=== PATIENT | female | born 1945 | race Caucasian/White ===

== ENCOUNTER → 2020-10-01 15:53 | Outpatient (CLI) | payer MEDICARE, SELFPAY ==
[2020-10-01 18:21] LABS: Alanine Aminotransferase 19 IU/L (<35); Albumin 4.3 g/dL (3.5-5.0); Albumin Globulin Ratio 1.4 (1.0-2.8); Alkaline Phosphatase 134 U/L (38-126); Aspartate Aminotransferase 29 IU/L (14-36); BUN Creatinine Ratio 17.6 (6-22); Bilirubin Total 0.7 mg/dL (0.2-1.3); Blood Urea Nitrogen 12 mg/dL (7-17); Calcium 9.6 mg/dL (8.4-10.2); Carbon Dioxide 31 mmol/L (22-32); Chloride 104 mmol/L (98-107); Cholesterol 245 mg/dL (140-199); Estimated Glomerular Filt Rate > 60.0 mL/min (>60); Globulin 3.1 g/dL (1.7-4.1); HDL Cholesterol 80 mg/dL (40-60); HEMOLYSIS < 15 (0-50); LDL Cholesterol Calculated 138 mg/dL (<100); Potassium 3.8 mmol/L (3.4-5.1); Sodium 139 mmol/L (137-145); Total Protein 7.4 g/dL (6.3-8.2); Triglycerides 137 mg/dL (35-150)
[2020-10-01 18:29] LABS: Glucose 85 mg/dL (80-110)
[2020-10-01 18:36] LABS: Free T3, Triiodothyronine Free 3.73 pg/mL (2.77-5.27); Free T4, Direct Thyroxine 1.26 ng/dL (0.78-2.19)
[2020-10-01 18:50] LABS: Thyroid Stimulating Hormone 1.42 uIU/mL (0.47-4.68)
== END ==
PROVIDERS: PCP Nurse Practitioner; Referring Provider Nurse Practitioner; Visit Provider Nurse Practitioner
DX: E78.5 Hyperlipidemia, unspecified (principal); Z79.899 Other long term (current) drug therapy; R00.2 Palpitations; R07.9 Chest pain, unspecified
CPT/HCPCS: 36415; 80053; 80061; 83735; 84439; 84443; 84481

== ENCOUNTER → 2020-10-22 15:03 | Outpatient (CLI) | payer MEDICARE, SELFPAY ==
--- NOTE | 2020-10-22 15:04 | DI.MG.S_ITS ---
BILATERAL DIGITAL SCREENING MAMMOGRAM 3D/2D WITH CAD: 10/22/2020 CLINICAL: Routine screening. Family history of breast cancer. Comparison is made to exams dated: 10/18/2019 mammogram, 09/29/2019 mammogram, 09/27/2018 mammogram, and 09/14/2017 mammogram - outside location. The tissue of both breasts is predominantly fatty. Current study was also evaluated with a Computer Aided Detection (CAD) system. No significant masses, calcifications, or other findings are seen in either breast. There has been no significant interval change. IMPRESSION: NEGATIVE There is no mammographic evidence of malignancy. A 1 year screening mammogram is recommended. This exam was interpreted at Station ID: [id number]. NOTE: For mammograms, a report in lay terms will be sent to the patient. Approximately 15% of breast malignancies will not be visualized mammographically. In the management of a palpable breast mass, a negative mammogram must not discourage biopsy of a clinically suspicious lesion. Electronically Signed By: Donovan Hahn acr/penrad:10/22/2020 16:50:57 letter sent: Normal Exam ACR BI-RADS Category 1: Negative 3341F
== END ==
PROVIDERS: PCP Nurse Practitioner; Referring Provider Nurse Practitioner; Visit Provider Nurse Practitioner
DX: Z12.31 Encounter for screening mammogram for malignant neoplasm of breast (principal); Z80.3 Family history of malignant neoplasm of breast; M81.0 Age-related osteoporosis without current pathological fracture; Z78.0 Asymptomatic menopausal state
CPT/HCPCS: 77063; 77067; 77080

== ENCOUNTER → 2020-11-27 10:23 | Outpatient (CLI) | payer MEDICARE, SELFPAY ==
[2020-11-27 11:07] LABS: COVID19 -Nasal RAPID Negative (Negative)
== END ==
PROVIDERS: PCP Nurse Practitioner; Visit Provider Specialist
DX: Z20.822 Contact with and (suspected) exposure to COVID-19 (principal)
CPT/HCPCS: 87635; C9803

== ENCOUNTER 2020-11-28 12:38 | Day surgery (SDC) | payer MEDICARE, SELFPAY ==
[2020-11-28] VITALS (7 sets, daily range): BP systolic 100–117; BP diastolic 50–66; PULSE 82–106; RESP 12–16; TEMP 36.5–36.9; O2SAT 97–99; BMI 27.1
--- NOTE | 2020-11-28 | PATH_ITS ---
[facility] Accession Number: [id number] . 01 Material submitted: . body - POLYP AT 100CM . 02 Diagnosis: Colon, Polyp at 100 cm, Biopsy: Inflammatory polyp. Negative for dysplasia and malignancy. MRV 12/02/2020 1440 Local . 02 Electronically signed: . Ines Paula MD, Pathologist NPI- [id number] . 01 Gross description: . POLYP AT 100CM: Received in formalin is 1 fragment(s) of duarte, soft tissue measuring 0.3 x 0.3 x 0.3 cm submitted entirely in 1 cassette(s) /QBJ 11/29/2020 0707 Local . 02 Pathologist provided ICD-10: K63.5 . 02 CPT . 622475 Performed at: 01 [facility] [address] [id number] MD Jef Chua MD Phone: [phone] Performed at: 02 [facility] [address] [place], [place] [id number] MD Ines Paula MD Phone: [phone]
[2020-11-28] MEDS: LACTATED RINGERS 1,000 ML 200 ML IV (13:18)
--- NOTE | 2020-11-28 14:02 | P.HP_ITS ---
History of Present Illness History of Present Illness Date Patient Seen: 11/28/20 Time Patient Seen: 14:02 Chief complaint: SDC Narrative: The patient is a woman here for a colonoscopy. She thinks her last exam was about 2012. She has had polyps in the past. No family history of colon cancer. Patient History Medical History Aneurysm, splenic artery (~1996) Arthritis Bruises easily Carpal tunnel syndrome (~2003) Chicken pox (~1955) Colon polyps (~1999) Elevated blood pressure reading in office with white coat syndrome, without diag nosis of hypertension Fractures (~1990) Headache (~1962) Hyperlipidemia LDL goal <100 Hyperlipidemia, mixed Measles (~1956) Migraines (~1962) Mumps (~1954) Neuropathy Peripheral neuropathy (~2011) Vertigo (~2004) Wears glasses Family & Social History Social History: household members spouse Tobacco & Substance use: Smoking Status Never smoker alcohol intake never Substance Use Type does not use Meds Home Medications and Allergies Home Medications Medication Instructions Recorded Confirmed Type amitriptyline 10 mg tablet 5 mg PO BEDTIME tab 10/01/20 11/28/20 History cholecalciferol (vitamin D3) 50 50 mcg PO DAILY 10/01/20 11/28/20 History mcg (2,000 unit) capsule gabapentin 100 mg capsule 100 mg PO TID 10/01/20 11/28/20 History ibuprofen 400 mg tablet See Rx Instructions PO QAM tab 10/01/20 11/28/20 History omeprazole 20 mg capsule,delayed 20 mg PO DAILY #90 cap 10/01/20 11/28/20 Rx release simvastatin 10 mg tablet 10 mg PO BEDTIME #90 tab 10/01/20 11/28/20 Rx Allergies Allergy/AdvReac Type Severity Reaction Status Date / Time amoxicillin Allergy Mild rash Verified 11/28/20 13:09 azithromycin Allergy Mild rash Verified 11/28/20 13:09 fluticasone [From Flonase] Allergy Mild coughing Verified 11/28/20 13:09 CONTRAST MEDIA, IODINE Allergy Mild red streak Uncoded 10/15/20 14:14 RELATED on arm From ZITHROMAX Allergy Unknown RASH Uncoded 10/15/20 14:14 SULFA Allergy Unknown RASH Uncoded 10/15/20 14:14 Review of Systems Review of Systems ROS: Yes All systems reviewed with the patient and are negative except as otherwise documented Exam Vital Signs (past 8 hours): - 11/28/20 13:18 Temperature 98.4 F Pulse Rate 106 H Respiratory Rate 14 Blood Pressure 117/66 Pulse Oximetry 97 Oxygen Delivery Method Room Air Narrative Exam Narrative: Pleasant cooperative patient no apparent distress. Lungs are clear to auscultation. No rales or rhonchi. Heart regular rate and rhythm no murmur gallop. Abdomen is soft nontender without mass. No obvious hernias. Patient is alert and oriented x3. Assessment & Plan Assessment & Plan narrative: The patient for a screening colonoscopy. I have discussed the procedure with them. Risks of bleeding, perforation which would necessitate major operation, failure to find remove all lesions, the potential tattoo were all discussed. All questions were answered. They wished to proceed.
--- NOTE | 2020-11-28 14:04 | PM.PREOP ---
Pre-operative Note COVID-19 COVID-19 status: Negative Result date/Date tested (Pos, Neg/Pending): 11/27/20 Interval Note History & Physical reviewed/Exam performed by Physician: Yes Changes to H&P: No ASA Class (for procedural sedation): I
[2020-11-28] MEDS: MIDAZOLAM 5 MG/5 ML VIAL IV (14:34)
[2020-11-28] MEDS: fentaNYL 250 MCG/5 ML INJ IV (14:34)
--- NOTE | 2020-11-28 14:55 | PM.OP.ENDO ---
Operative Date/Time/Diagnoses Date of procedure: 11/28/20 Time of procedure: 14:30 Pre-op diagnosis: Screening exam. Personal history of polyps. Last exam was 5/6 years ago. Post-op diagnosis: same (Multiple diverticuli. One small polyp at about 100 cm from the anal verge.) Procedure & Clinicians Study performed: Colonoscopy with cold biopsy Same procedure as scheduled: Yes Indications: Screening Surgeon: Isrrael Moffett Procedure Notes SCOAP/Timeout: Performed Procedure in detail: The patient was placed in the left lateral decubitus position and underwent IV sedation directed by the surgeon consisting of fentanyl and Versed. Digital exam was remarkable for an increased sphincter tone.. The scope was inserted and advanced through the rectum into the sigmoid, descending, transverse, and ascending colon. Diverticula were noted throughout the colon. Stiffener was inserted and pressure applied in order to reach the cecum.. The cecum was reached identified by the ileocecal valve and the appendiceal opening. The ileocecal valve was successfully cannulated. The terminal ileum was normal in appearance. The scope was gradually brought out. One tiny Polyp was found at 100 cm failed verge and was removed. The scope ultimately was retroflexed in the rectum. The appearance was normal. The scope was removed and the patient tolerated the procedure well. Scope withdrawal time: 8 minutes(9 total) Sedation minutes: 30 Findings: diverticulosis and polyp (One polyp) Specimen(s): other (Polyp) Post-procedure Recommendations: Colonscopy in 5 years Follow up: as needed Disposition: PACU
== END 2020-11-28 15:24 | disposition home or self-care (01) ==
PROVIDERS: PCP Nurse Practitioner; Referring Provider Specialist; Visit Provider Specialist
PROC: 0DJD8ZZ Inspection of Lower Intestinal Tract, Via Natural or Artificial Opening Endoscopic (ICD-10-PCS; CPT 45378; principal; 2020-11-28 13:45)
DX: Z12.11 Encounter for screening for malignant neoplasm of colon (principal); Z86.010 Personal history of colon polyps; K57.30 Diverticulosis of large intestine without perforation or abscess without bleeding; K63.5 Polyp of colon
CPT/HCPCS: 45380; 99152; 99153; J2250; J3010

== ENCOUNTER → 2020-12-04 15:40 | Outpatient (CLI) | payer MEDICARE, SELFPAY ==
--- NOTE | 2020-12-04 15:43 | DI.RAD.S_ITS ---
PROCEDURE: XR FOOT RT MIN 3V INDICATIONS: right lateral foot pain 5th prox Metatarsal r/o stress fract TECHNIQUE: 3 views of the foot were acquired. COMPARISON: None. FINDINGS: Bones: Severe hallux valgus deformity is seen postsurgical changes are noted at distal 1st metatarsal shaft and 1st proximal phalangeal base. No gross hardware loosening or failure is seen. Osteoarthritic changes are noted in midfoot and forefoot joints more prominent at 1st MTP joint. No acute fracture or dislocation. No suspicious bony lesions. Soft tissues: No tibiotalar joint effusion. Achilles tendon appears normal. IMPRESSION: Postsurgical changes in right great toe. Severe hallux valgus. Midfoot and forefoot joint osteoarthritis. No gross hardware complication. No acute fracture or dislocation. Dictated by: Brendon Moran M.D. on 12/04/2020 at 15:32 Approved by: Brendon Moran M.D. on 12/04/2020 at 15:34
== END ==
PROVIDERS: PCP Nurse Practitioner; Referring Provider Student in an Organized Health Care Education/Training Program; Visit Provider Student in an Organized Health Care Education/Training Program
DX: M79.671 Pain in right foot (principal); L89.90 Pressure ulcer of unspecified site, unspecified stage; M19.071 Primary osteoarthritis, right ankle and foot; M20.11 Hallux valgus (acquired), right foot
CPT/HCPCS: 73630

== ENCOUNTER → 2021-02-14 10:18 | Outpatient (CLI) | payer MEDICARE, SELFPAY ==
[2021-02-14 12:17] LABS: Alanine Aminotransferase 18 IU/L (<35); Albumin Globulin Ratio 1.5 (1.0-2.8); Alkaline Phosphatase 99 U/L (38-126); Aspartate Aminotransferase 25 IU/L (14-36); Bilirubin Total 0.8 mg/dL (0.2-1.3); Bilirubin Unconjugated 0.8 mg/dL (0.0-1.1); Cholesterol 160 mg/dL (140-199); Globulin 2.7 g/dL (1.7-4.1); HDL Cholesterol 69 mg/dL (40-60); HEMOLYSIS < 15 (0-50); LDL Cholesterol Calculated 73 mg/dL (<100); Total Protein 6.7 g/dL (6.3-8.2); Triglycerides 88 mg/dL (35-150)
== END ==
PROVIDERS: PCP Nurse Practitioner; Referring Provider Nurse Practitioner; Visit Provider Nurse Practitioner
DX: R79.89 Other specified abnormal findings of blood chemistry (principal); I10 Essential (primary) hypertension; E78.2 Mixed hyperlipidemia
CPT/HCPCS: 36415; 80061; 80076

== ENCOUNTER → 2021-02-21 10:49 | Outpatient (CLI) | payer MEDICARE, SELFPAY ==
--- NOTE | 2021-02-21 10:50 | DI.MG.S_ITS ---
UNILATERAL LEFT DIGITAL DIAGNOSTIC MAMMOGRAM 3D/2D: 02/21/2021 CLINICAL: Left nipple pain. Comparison is made to exams dated: 02/21/2021 ultrasound, 10/22/2020 mammogram - , and 10/18/2019 mammogram - outside location. The tissue of left breast is heterogeneously dense. This may lower the sensitivity of mammography. No significant masses, calcifications, or other findings are seen in the breast. IMPRESSION: INCOMPLETE: NEEDS ADDITIONAL IMAGING EVALUATION There is no abnormality seen in the left breast to correspond with the area of clinical concern, nipple abnormality, and pain. An ultrasound is recommended for further evaluation and is scheduled to immediately follow this examination. This exam was interpreted at Station ID: [id number]. NOTE: For mammograms, a report in lay terms will be sent to the patient. Approximately 15% of breast malignancies will not be visualized mammographically. In the management of a palpable breast mass, a negative mammogram must not discourage biopsy of a clinically suspicious lesion. Electronically Signed By: Armando Major M.D. aty/:02/21/2021 12:15:30 ACR BI-RADS Category 0: Incomplete [id number]
--- NOTE | 2021-02-21 10:50 | DI.US.S_ITS ---
ULTRASOUND OF LEFT BREAST: 02/21/2021 CLINICAL: Focal left breast pain. Comparison is made to exams dated: 10/22/2020 mammogram - [facility], 10/18/2019 mammogram, 09/29/2019 mammogram, 09/27/2018 mammogram, and 09/14/2017 mammogram - outside location. Color flow and real-time ultrasound of the left breast were performed. Zapien scale images of the real-time examination were reviewed. No significant abnormalities were seen sonographically in the left breast. IMPRESSION: NEGATIVE There is no sonographic evidence of malignancy. There is no abnormality seen in the left breast to correspond with the area of clinical concern, nipple abnormality, and pain, however, recommend clinical follow up for persistent or worsening symptoms, or development of any clinically suspicious findings. Return to annual mammogram screening schedule is recommended. Future imaging is recommended as follows: 10/23/2021 screening mammogram. Findings and recommendations were conveyed to the patient during today's evaluation. This exam was interpreted at Station ID: [id number]. Electronically Signed By: Armando Major M.D. at/:02/21/2021 12:16:41 letter sent: Clinical Evaluation Ultrasound BI-RADS: 1 Negative
--- NOTE | 2021-02-21 10:50 | DI.US.S_ITS ---
PROCEDURE: US EXTREMITY NONVASC UPPER LT INDICATIONS: MASS LEFT WRIST TECHNIQUE: Real-time scanning was performed of the left forearm , with image documentation. COMPARISON: None. FINDINGS: Sonographic images within the palpable region demonstrate a relatively iso/increased echogenic focus measuring 2.6 x 0.9 x 1.0 cm. It is within the subcutaneous tissues. There are scattered areas of more central heterogeneous echogenicity. IMPRESSION: Echogenic focus within the subcutaneous tissues suggestive of lipoma. However, scattered areas of more central heterogeneous echogenicity are noted, which are not characteristic for lipoma. While this could represent a heterogeneous lipoma, other etiologies cannot be definitively excluded. Three-month ultrasound follow-up or MRI wrist is recommended for further evaluation. Dictated by: Hayley Conte M.D. on 02/21/2021 at 14:15 Approved by: Hayley Conte M.D. on 02/21/2021 at 14:17
== END ==
PROVIDERS: PCP Nurse Practitioner; Referring Provider Nurse Practitioner; Visit Provider Nurse Practitioner
DX: N64.4 Mastodynia (principal); R22.32 Localized swelling, mass and lump, left upper limb; R92.2 Inconclusive mammogram
CPT/HCPCS: 76642; 76882; 77065; G0279

== ENCOUNTER → 2021-03-03 15:34 | Outpatient (CLI) | payer MEDICARE, SELFPAY ==
--- NOTE | 2021-03-03 15:36 | DI.MRI.S_ITS ---
PROCEDURE: MR WRIST LT WO/W CON INDICATIONS: Abnormal US of left forearm, lump on left forearm TECHNIQUE: Noncontrast coronal proton density fast spin echo and T2 fast spin echo with fat saturation; coronal 3-D gradient echo, axial T1 spin echo and T2 fast spin echo with fat saturation, axial T1 spin echo with fat saturation, sagittal T1 spin echo through the wrist. Post-contrast axial, coronal, and sagittal T1 spin echo with fat saturation through the wrist. COMPARISON: [facility], US, US EXTREMITY NONVAS UPPER LT, 02/21/2021, 10:15. FINDINGS: Image quality: Excellent. Bones and cartilage: No suspicious osseous enhancement. Osteoarthritic changes throughout wrist joints are seen. No bone marrow contusions or fractures. No evidence for avascular necrosis. Overlying cartilage surfaces appear normal. Carpal ligaments: There is suggestion of ruptured scapholunate ligament with slight widening of scapholunate interval. The lunotriquetral ligament appears intact. In the absence of intra-articular contrast, the extrinsic carpal ligaments are not well identified. On sagittal images, the pisohamate ligament appears intact. Triangular fibrocartilage complex: Subtle signal abnormality involving ulnar aspect of triangular fibrocartilage is seen concerning for TFCC tear in this area. The adjacent meniscal homolog appears normal in the absence of intra-articular contrast. The extensor carpi ulnaris tendon is normal in location and morphology. Tendons and soft tissues: There is fairly homogeneous T1 and T2 hyperintense structure draped around radial and volar aspect of distal radial shaft with mass effect on the adjacent flexor muscles . No contrast enhancement is noted in this structure. Complete signal suppression is noted within this structure on fat suppressed sequences. This structure measures up to 1.3 x 1 x 3 cm in size. The carpal tunnel structures appear normal, including the median nerve. The ulnar nerve appears normal within Guyon's canal. All six extensor tendon compartments demonstrate normal morphology, without pathologic tendon sheath fluid. No soft tissue ganglion cysts. IMPRESSION: 1. Finding is most consistent with a 1.3 x 1 x 3 cm lipoma adjacent to radial and volar aspect of distal radial shaft at patient's reported area of palpable lump. No enhancing soft tissue mass is seen. 2. Osteoarthritic changes throughout wrist joints. No abnormal intraosseous enhancement. No fracture or dislocation. 3. Suggestion of ruptured scapholunate ligament as above. 4. Suggestion of TFCC tear near its ulnar insertion. 5. Extensor and flexor tendons are intact. Dictated by: Brendon Moran M.D. on 03/03/2021 at 17:00 Approved by: Brendon Moran M.D. on 03/03/2021 at 17:11
== END ==
PROVIDERS: PCP Nurse Practitioner; Referring Provider Nurse Practitioner; Visit Provider Nurse Practitioner
DX: R22.32 Localized swelling, mass and lump, left upper limb (principal)
CPT/HCPCS: 73223; A9579

== ENCOUNTER → 2021-05-12 15:15 | Outpatient (CLI) | payer MEDICARE, SELFPAY ==
--- NOTE | 2021-05-12 15:16 | DI.US.S_ITS ---
PROCEDURE: US EXTREMITY NONVASC UPPER LT INDICATIONS: FOLLOW UP SUSPECTED LIPOMA TECHNIQUE: Real-time scanning was performed of the left forearm, with image documentation. COMPARISON: [facility], US, US EXTREMITY NONVASC UPPER LT, 02/21/2021, 10:15. FINDINGS: Compared to previous study, again shows a slightly heterogeneously isoechoic structure within anterolateral forearm subcutaneous soft tissue and measures 2.7 x 0.9 x 1.3 cm in size and show no internal vascularity. No new soft tissue mass or fluid collection is seen. This structure previously measures 2.6 x 0.9 x 1 cm in size. IMPRESSION: Essentially unchanged subcutaneous soft tissue structure in left anterolateral forearm most likely represent benign lipoma. Dictated by: Brendon Moran M.D. on 05/12/2021 at 16:05 Approved by: Brendon Moran M.D. on 05/12/2021 at 16:07
== END ==
PROVIDERS: PCP Nurse Practitioner; Referring Provider Nurse Practitioner; Visit Provider Nurse Practitioner
DX: R22.32 Localized swelling, mass and lump, left upper limb (principal)
CPT/HCPCS: 76882

== ENCOUNTER → 2021-07-28 12:38 | Outpatient (CLI) | payer MEDICARE, SELFPAY ==
[2021-07-28 18:10] LABS: Hep C Virus Ab w/Reflex Quant NEGATIVE s/c (NEGATIVE)
== END ==
PROVIDERS: PCP Nurse Practitioner; Referring Provider Nurse Practitioner; Visit Provider Nurse Practitioner
DX: Z11.59 Encounter for screening for other viral diseases (principal); Z91.89 Other specified personal risk factors, not elsewhere classified
CPT/HCPCS: 36415; 86803

== ENCOUNTER → 2021-10-29 08:13 | Outpatient (CLI) | payer MEDICARE, SELFPAY ==
--- NOTE | 2021-10-29 08:16 | DI.RAD.S_ITS ---
PROCEDURE: XR SHOULDER RT MIN 2V INDICATIONS: R upper humerus pain, fall TECHNIQUE: 3 views of the shoulder were acquired. COMPARISON: None. FINDINGS: Bones: There is overlap of the cortex along the inferior margin of the surgical neck of the humerus on single view. It is unclear whether this represents a small minimally displaced fracture or simply artifact of overlapping bone. No other fracture or dislocation. Soft tissues: No suspicious soft tissue calcifications. IMPRESSION: No definite fracture; however questionable nondisplaced fracture at the surgical neck of the humerus versus artifact. If there is high clinical suspicion for occult fracture in this region, CT of the shoulder is recommended. Dictated by: Stephanie Garcia M.D. on 10/29/2021 at 8:41 Approved by: Stephanie Garcia M.D. on 10/29/2021 at 8:43
--- NOTE | 2021-10-29 08:16 | DI.RAD.S_ITS ---
PROCEDURE: XR HUMERUS RT 2V INDICATIONS: R upper humerus pain, fall TECHNIQUE: 2 views of the humerus were acquired. COMPARISON: [facility], CR, XR SHOULDER RT MIN 2V, 10/29/2021, 8:07. FINDINGS: Bones: No fractures or dislocations. No suspicious bony lesions. Soft tissues: No suspicious soft tissue calcifications. IMPRESSION: No acute radiographic findings. If pain persists, followup imaging in 5-7 days is recommended to exclude occult fracture. Dictated by: Stephanie Garcia M.D. on 10/29/2021 at 8:39 Approved by: Stephanie Garcia M.D. on 10/29/2021 at 8:41
== END ==
PROVIDERS: PCP Nurse Practitioner; Referring Provider Physician Assistant; Visit Provider Physician Assistant
DX: M79.621 Pain in right upper arm (principal)
CPT/HCPCS: 73030; 73060

== ENCOUNTER → 2021-10-30 09:41 | Outpatient (CLI) | payer MEDICARE, SELFPAY ==
--- NOTE | 2021-10-30 09:42 | DI.CT.S_ITS ---
PROCEDURE: CT UE RT WO CON INDICATIONS: R shoulder pain, decreased ROM, s/p ground level fall TECHNIQUE: Noncontrast 1-1.5 mm thick sections acquired from the acromioclavicular joint to the inferior scapula, with coronal and sagittal reformatting. COMPARISON: [facility], CR, XR SHOULDER RT MIN 2V, 10/29/2021, 8:07. FINDINGS: Image quality: Excellent. Bones: No fracture or dislocation. There is moderate acromioclavicular joint degeneration. There is minimal glenohumeral joint degeneration. Multiple intraosseous ganglion cysts are demonstrated within the humeral head. Visualized ribs appear intact. Soft tissues: There is a small to moderate glenohumeral joint effusion and mild periarticular soft tissue swelling. The rotator cuff appears grossly intact with limited evaluation on CT. The visualized musculature appears preserved. IMPRESSION: 1. No fracture or dislocation. 2. Small to moderate glenohumeral joint effusion with periarticular soft tissue swelling. Further evaluation for possible soft tissue injury may be obtained with MRI if clinically indicated. Dictated by: Jef Lopez M.D. on 10/30/2021 at 10:26 Approved by: Jef Lopez M.D. on 10/30/2021 at 10:43
== END ==
PROVIDERS: PCP Nurse Practitioner; Referring Provider Physician Assistant; Visit Provider Physician Assistant
DX: S49.91XA Unspecified injury of right shoulder and upper arm, initial encounter (principal); M19.011 Primary osteoarthritis, right shoulder; W19.XXXA Unspecified fall, initial encounter
CPT/HCPCS: 73200

== ENCOUNTER → 2021-11-11 12:12 | Outpatient (CLI) | payer MEDICARE, SELFPAY ==
--- NOTE | 2021-11-11 12:14 | DI.RAD.S_ITS ---
PROCEDURE: XR HUMERUS RT 2V INDICATIONS: Rule out occult fracture TECHNIQUE: 2 views of the humerus were acquired. COMPARISON: None. FINDINGS: Bones: No fractures or dislocations. No suspicious bony lesions. Soft tissues: No suspicious soft tissue calcifications. IMPRESSION: No fracture. No acute osseous lesion. If symptoms and/or clinical suspicion for pathology persists, further assessment with repeat radiographs (7-10 days) or advanced imaging (e.g. CT, MRI or bone scan) should be considered. Dictated by: Leticia Dela Cruz MD, PhD on 11/11/2021 at 13:41 Approved by: Leticia Dela Cruz MD, PhD on 11/11/2021 at 13:42
== END ==
PROVIDERS: PCP Nurse Practitioner; Referring Provider Nurse Practitioner; Visit Provider Nurse Practitioner
DX: M79.601 Pain in right arm (principal)
CPT/HCPCS: 73060

== ENCOUNTER → 2022-01-01 15:45 | Outpatient (CLI) | payer MEDICARE, SELFPAY ==
--- NOTE | 2022-01-01 | DI.MG.S_ITS ---
BILATERAL DIGITAL SCREENING MAMMOGRAM 3D/2D WITH CAD: 01/01/2022 CLINICAL: Routine screening. Comparison is made to exams dated: 10/22/2020 mammogram - [facility], 09/29/2019 mammogram, 09/27/2018 mammogram - outside [facility], and 02/21/2021 mammogram - [facility]. The tissue of both breasts is heterogeneously dense. This may lower the sensitivity of mammography. Current study was also evaluated with a Computer Aided Detection (CAD) system. No significant masses, calcifications, or other findings are seen in either breast. There has been no significant interval change. IMPRESSION: NEGATIVE There is no mammographic evidence of malignancy. A 1 year screening mammogram is recommended. This exam was interpreted at Station ID: [id number]. NOTE: For mammograms, a report in lay terms will be sent to the patient. Approximately 15% of breast malignancies will not be visualized mammographically. In the management of a palpable breast mass, a negative mammogram must not discourage biopsy of a clinically suspicious lesion. Electronically Signed By: Luis james/gurmeet:01/02/2022 08:09:23 letter sent: Normal Exam ACR BI-RADS Category 1: Negative [id number]
== END ==
PROVIDERS: PCP Nurse Practitioner; Referring Provider Nurse Practitioner; Visit Provider Nurse Practitioner
DX: Z12.31 Encounter for screening mammogram for malignant neoplasm of breast (principal)
CPT/HCPCS: 77063; 77067

== ENCOUNTER 2022-01-23 13:00 | Outpatient (RCR) | payer MEDICARE, SELFPAY ==
--- NOTE | 2021-12-02 16:48 | PT.OIE ---
Current Diagnoses Pain in right arm (12/02/21) Unspecified fall, initial encounter (12/02/21) Past Medical History (Last Updated 11/11/21 @ 14:11 by CARMINA Arnold) Aneurysm, splenic artery (~1996) Arthritis Bruises easily Carpal tunnel syndrome (~2003) Chicken pox (~1955) Colon polyps (~1999) Elevated blood pressure reading in office with white coat syndrome, without diagnosis of hypertension Fall Fractures (~1990) Headache (~1962) Hyperlipidemia LDL goal <100 Hyperlipidemia, mixed Measles (~1956) Migraines (~1962) Mumps (~1954) Neuropathy Pain of right upper extremity Peripheral neuropathy (~2011) Vertigo (~2004) Wears glasses Visit Care Team Role Provider Type CARMINA Arnold Attending Provider Advanced Business Development Agent Primary Care Provider Referring Provider Specialty: [facility] Practice Address: [address] [place] [address] Email: [email or web address] Physical Therapy Initial Evaluation PT-OP-A Visit Information Start: 11/27/21 18:37 Freq: Status: Active Protocol: Document 12/02/21 13:50 LRN (Rec: 12/02/21 14:35 LRN [id number]) Out-Patient Physical Therapy Visit Information Visit Information Visit Type Initial Evaluation Visit Start Time 13:50 Visit Stop Time 14:34 Total Visit Minutes 44 Visit Number 1 Evaluation Information Evaluation Date 12/02/21 Precautions Precautions Aneurysm on spleen, L tib/fib fracture/rpr 1990, general arthritis, 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 Has . Pt is L handed. PT-OP-B Current Condition Start: 11/27/21 18:37 Freq: Status: Active Protocol: Document 12/02/21 13:50 LRN (Rec: 12/02/21 14:35 LRN [id number]) Current Condition History of Current Condition Onset Date October 28, 2021 Current Complaints Pain in R lateral shoulder and aches in the distal arm with weakness. History of Current Condition Tripped on breadspread and flew across the room landing on R arm with arms reaching to the floor. R hand tingles and the R hand/arm feels weak. Pt is L handed. Prior Treatments and Tests Increased Motrin from 800 mg/ day to 1200 mg/day. Previously taking Motrin after rebuilding tib/fib plateau in 1990 and also due to arthritis everywhere. X-ray - recent one shows no fracture. Cat scan - showed no fractures Treatment Goals Patient/Caregiver Goals Gain strength back in R arm Move R arm normal. Prior Functional Status Baseline Function- ADL's Independent Baseline Function- Mobility Independent Baseline Function- Recreation/Hobbies Gardening, canoe's in summer, and playing piano. Current Functional Impairments (Reported) Functional Limitations- ADL's Hold on playing the piano and canoe. Can't close doors (including cars), doing back of hair, getting dressed. 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 PT-OP-C Subjective Start: 11/27/21 18:37 Freq: Status: Active Protocol: Document 12/02/21 13:50 LRN (Rec: 12/02/21 14:35 LRN [id number]) Patient Questionnaires Quick Dash- Upper Extremity Quick Dash UE Score 65.9 Quick Dash UE Impairment 60 to 79% Impaired (Score 60- 79) OP-PT Pain Assessment Pain Assessment Grid Paper Pain Assessment Grid Completed Yes Location R arm Pain Location Details R lateral shoulder Scale Used Numeric (0 - 10) Description Aching,Sharp Description- Other Sharp pain when tried to move R arm. Aches in entire arm. Frequency Intermittent Variations/Patterns Pain when bumped Pain Aggravating Factors Activity Pain Alleviating Factors Cold,Medication PT-OP-H Neuro Start: 11/27/21 18:37 Freq: Status: Active Protocol: Document 12/02/21 13:50 LRN (Rec: 12/02/21 14:35 LRN [id number]) Sensation Evaluation Comments Summary Comments Tingling in R hand PT-OP-J Posture/Palpation/Skin Start: 11/27/21 18:37 Freq: Status: Active Protocol: Document 12/02/21 13:50 LRN (Rec: 12/02/21 14:35 LRN [id number]) Posture Evaluation Position Standing Head/C-Spine Posture Forward Head T-Spine Posture Increased Kyphosis L-Spine Posture Decreased Lordosis Shoulder Posture (L) Elevated Scapula Posture (R) Depressed Arm Posture (L) Internally Rotated,(R) Internally Rotated Pelvis Posture Posterior Tilted Knee Posture (R) Genu Varus,(L) Genu Valgus Palpation Assessment Location R shoulder Palpation Location Tender at R Deltoid insertion Palpation Findings Tenderness PT-OP-K Range of Motion Start: 11/27/21 18:37 Freq: Status: Active Protocol: Document 12/02/21 13:50 LRN (Rec: 12/02/21 14:35 LRN [id number]) Shoulder Goniometric Range of Motion Shoulder Right Passive Shoulder ROM WFL No Testing Position Supine External Rotation at 90 degrees 50 Abduction Internal Rotation 80 Left Passive Shoulder ROM WFL Yes Testing Position Supine External Rotation at 90 degrees 90 Abduction Internal Rotation 90 Right Active Shoulder ROM WFL No Testing Position Sitting Flexion 125 Extension 50 Abduction 90 External Rotation at 0 degrees Abduction 54 Internal Rotation Behind Back (text) T6 Comments Overhead Base of head Left Active Shoulder ROM WFL Yes Flexion 152 Extension 52 Abduction 161 External Rotation at 0 degrees Abduction 65 Internal Rotation Behind Back (text) T6 Comments Overhead T2 PT-OP-L Special Tests Start: 11/27/21 18:37 Freq: Status: Active Protocol: Document 12/02/21 13:50 LRN (Rec: 12/02/21 16:46 LRN [id number]) Special Tests Shoulder Special Tests Elevation Impingement Test Results R shoulder: Positive Comments Pain, indicating possible RC injury. IR/Horizontal ADD Impingement Test Results R shoulder: Positive Comments Pain, indicating possible RC injury. Drop Arm Rotator Cuff Test Results R shoulder: Positive Comments Pt demonstrated lack of arm control with lowering of R arm when in max tolerated AB, indicating possible RC injury. Belly Press Test Results R shoulder: negative Comments Negative for IR dysfunction PT-OP-M Strength Start: 11/27/21 18:37 Freq: Status: Active Protocol: Document 12/02/21 13:50 LRN (Rec: 12/02/21 14:35 LRN [id number]) Shoulder Strength Shoulder Manual Muscle Testing Right Flexion 3 Fair Extension 5 Normal Abduction (C5) 3 Fair Adduction 5 Normal External Rotation 3+ Fair+ Internal Rotation 4 Good Left Flexion 5 Normal Extension 5 Normal Abduction (C5) 3 Fair Adduction 5 Normal External Rotation 3 Fair Internal Rotation 5 Normal PT-OP-Q Treatments Start: 11/27/21 18:37 Freq: Status: Active Protocol: Document 12/02/21 13:50 LRN (Rec: 12/02/21 14:35 LRN [id number]) Therapeutic Exercises Supine Exercises R shoulder ER stretch Supine Exercise Name R shoulder ER/IR stretch Side right Reps/Minutes 2' Self-Care/Home Management Treatment Education Other Education Discussed results of evaluation, goals, and plan of care (POC). Pt agreeable to goals and POC. PT-OP-T Assessment and Plan Start: 11/27/21 18:37 Freq: Status: Active Protocol: Document 12/02/21 13:50 LRN (Rec: 12/02/21 14:35 LRN [id number]) Physical Therapy Assessment Rehab Potential Rehabilitation Potential Good Evaluation Complexity Number of Personal Factors/Comorbidities 1-2 Number of Body Systems Impaired 4 or More Clinical Presentation at Evaluation Evolving Impairments Impairments Activity Tolerance,Functional Activities,Pain,ROM,Soft Tissue Mobility,Strength Goals Three Impairment Decreased R shoulder mobility Short Term Goal (STG) Improve R shoulder mobility to be able to put coat or clothes on with minimal pain. STG Duration 01/18/22 Car Sales Representative Goal (LTG) Move R arm normal (90% of normal) to close car door with minimal pain. LTG Duration 03/02/22 Two Impairment Decreased R shoulder strength Short Term Goal (STG) Gain strength in R shoulder to return to piano play. STG Duration 01/18/22 Intermediate Goal (LTG) Gain strength in R arm to open bottles or jars. LTG Duration 03/02/22 One Impairment HEP Short Term Goal (STG) Pt able to demonstrate ability to use clippers for pruning or gardening. STG Duration 01/18/22 Car Sales Representative Goal (LTG) Independent with HEP of scapular stab, shoulder, elbow ROM and strengthening ex's. LTG Duration 03/02/22 Assessment Summary Assessment Pt presents with R shoulder impingement due to soft tissue injury after fall on outstretched R arm. She is decreased in R shoulder mobility and strength leading to a decrease in functional use of her RUE. She has soft tissue dysfunction and referred pain at the R deltoid with shoulder AROM. Special tests of the neck did not indicate neck involvement, but further assessment of general UE strength is needed. The pt will benefit from skilled physical therapy rehabilitation to achieve the above stated goals. Physical Therapy Plan Frequency and Duration Frequency of Treatment 2x/Week Plan of Care Start Date 12/02/21 Plan of Care End Date 03/02/22 Therapeutic Interventions Therapeutic Interventions Home Exercise Program,Joint Mobilizations,Manual Therapy, Neuromuscular Re-education, Patient/Caregiver Education, Self-Care/Home Management,Soft Tissue Mobilization,Taping, Therapeutic Exercises Modalities Cold Pack/Ice Massage,Electric Stimulation,Hot Packs, Iontophoresis,Ultrasound Next Visit Focus/Plan Next Note Type Treatment Note Next Visit Plan Assess R elbow DTR's and elbow /wrist strength (note pt is L hand dominant). Assess JMT of R GHJ for capsular dysfunction, Check labrum. Start POC: R shoulder ROM ex' s, R shoulder/scapula AROM of RC with progression of strengthening as tolerated with HEP as needed. STM Deltoid, HEP: Strengthening of elbow, wrist. Modalities to include CP, MH/EStim.
--- NOTE | 2021-12-02 16:48 | PT.OPPOC ---
Physical, Occupational & Speech Therapy At [facility] Current Diagnoses Pain in right arm (12/02/21) Unspecified fall, initial encounter (12/02/21) Visit Care Team Role Provider Type CARMINA Arnold Attending Provider Advanced Wildlife Veterinarian Primary Care Provider Referring Provider Specialty: [facility] Address: [address] [place] [address], [facility] Email: [email or web address] Plan Of Care PT-OP-T Assessment and Plan Start: 11/27/21 18:37 Freq: Status: Active Protocol: Document 12/02/21 13:50 LRN (Rec: 12/02/21 14:35 LRN [id number]) Physical Therapy Assessment Rehab Potential Rehabilitation Potential Good Evaluation Complexity Number of Personal Factors/Comorbidities 1-2 Number of Body Systems Impaired 4 or More Clinical Presentation at Evaluation Evolving Impairments Impairments Activity Tolerance,Functional Activities,Pain,ROM,Soft Tissue Mobility,Strength Goals Three Impairment Decreased R shoulder mobility Short Term Goal (STG) Improve R shoulder mobility to be able to put coat or clothes on with minimal pain. STG Duration 01/18/22 Surveillance Investigator Goal (LTG) Move R arm normal (90% of normal) to close car door with minimal pain. LTG Duration 03/02/22 Two Impairment Decreased R shoulder strength Short Term Goal (STG) Gain strength in R shoulder to return to piano play. STG Duration 01/18/22 Correction Goal (LTG) Gain strength in R arm to open bottles or jars. LTG Duration 03/02/22 One Impairment HEP Short Term Goal (STG) Pt able to demonstrate ability to use clippers for pruning or gardening. STG Duration 01/18/22 Correction Goal (LTG) Independent with HEP of scapular stab, shoulder, elbow ROM and strengthening ex's. LTG Duration 03/02/22 Assessment Summary Assessment Pt presents with R shoulder impingement due to soft tissue injury after fall on outstretched R arm. She is decreased in R shoulder mobility and strength leading to a decrease in functional use of her RUE. She has soft tissue dysfunction and referred pain at the R deltoid with shoulder AROM. Special tests of the neck did not indicate neck involvement, but further assessment of general UE strength is needed. The pt will benefit from skilled physical therapy rehabilitation to achieve the above stated goals. Physical Therapy Plan Frequency and Duration Frequency of Treatment 2x/Week Plan of Care Start Date 12/02/21 Plan of Care End Date 03/02/22 Therapeutic Interventions Therapeutic Interventions Home Exercise Program,Joint Mobilizations,Manual Therapy, Neuromuscular Re-education, Patient/Caregiver Education, Self-Care/Home Management,Soft Tissue Mobilization,Taping, Therapeutic Exercises Modalities Cold Pack/Ice Massage,Electric Stimulation,Hot Packs, Iontophoresis,Ultrasound Next Visit Focus/Plan Next Note Type Treatment Note Next Visit Plan Assess R elbow DTR's and elbow /wrist strength (note pt is L hand dominant). Assess JMT of R J for capsular dysfunction, Check labrum. Start POC: R shoulder ROM ex' s, R shoulder/scapula AROM of RC with progression of strengthening as tolerated with HEP as needed. STM Deltoid, HEP: Strengthening of elbow, wrist. Modalities to include CP, MH/EStim. Plan of Care Dates Plan of Care Start Date 12/02/21 Plan of Care End Date 03/02/22 Electronically Signed by: Stephanie Nance, PT 12/02/21 0656 Please Sign and Return: I have reviewed this Plan of Care and certify that the skilled therapy services above are required to meet the patient?s needs. Physician Signature Date Printed Name and Credentials Clinical Instructor Signature Printed Name and Credentials
--- NOTE | 2021-12-04 14:30 | PT.OTN ---
Current Diagnoses Pain in right arm (12/04/21) Unspecified fall, initial encounter (12/04/21) Physical Therapy Treatment Note PT-OP-A Visit Information Start: 11/27/21 18:37 Freq: Status: Active Protocol: Document 12/04/21 13:51 SP (Rec: 12/04/21 14:32 SP [id number]) Out-Patient Physical Therapy Visit Information Visit Information Visit Type Treatment Note Visit Start Time 13:51 Visit Stop Time 14:30 Total Visit Minutes 39 Visit Number 2 Number of HEALTH EDUCATION DIRECTOR Visits 1 Evaluation Information Evaluation Date 12/02/21 Precautions Precautions Aneurysm on spleen, L tib/fib fracture/rpr 1990, general arthritis, 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 Has . Pt is L handed. PT-OP-B Current Condition Start: 11/27/21 18:37 Freq: Status: Active Protocol: Document 12/02/21 13:50 LRN (Rec: 12/02/21 14:35 LRN [id number]) Current Condition History of Current Condition Onset Date October 28, 2021 Current Complaints Pain in R lateral shoulder and aches in the distal arm with weakness. History of Current Condition Tripped on breadspread and flew across the room landing on R arm with arms reaching to the floor. R hand tingles and the R hand/arm feels weak. Pt is L handed. Prior Treatments and Tests Increased Motrin from 800 mg/ day to 1200 mg/day. Previously taking Motrin after rebuilding tib/fib plateau in 1990 and also due to arthritis everywhere. X-ray - recent one shows no fracture. Cat scan - showed no fractures Treatment Goals Patient/Caregiver Goals Gain strength back in R arm Move R arm normal. Prior Functional Status Baseline Function- ADL's Independent Baseline Function- Mobility Independent Baseline Function- Recreation/Hobbies Gardening, canoe's in summer, and playing piano. Current Functional Impairments (Reported) Functional Limitations- ADL's Hold on playing the piano and canoe. Can't close doors (including cars), doing back of hair, getting dressed. 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 PT-OP-C Subjective Start: 11/27/21 18:37 Freq: Status: Active Protocol: Document 12/04/21 13:51 SP (Rec: 12/04/21 14:32 SP [id number]) OP-PT Subjective Patient Comments Patient Comments Pt reports some times wakes up and R hand fell asleep. Pt states wasn't given any exercises to do at home, wants to know what can start, is playing piano ok? No reports of adverse affects to eval. PT-OP-H Neuro Start: 11/27/21 18:37 Freq: Status: Active Protocol: Document 12/02/21 13:50 LRN (Rec: 12/02/21 14:35 LRN [id number]) Sensation Evaluation Comments Summary Comments Tingling in R hand PT-OP-J Posture/Palpation/Skin Start: 11/27/21 18:37 Freq: Status: Active Protocol: Document 12/02/21 13:50 LRN (Rec: 12/02/21 14:35 LRN [id number]) Posture Evaluation Position Standing Head/C-Spine Posture Forward Head T-Spine Posture Increased Kyphosis L-Spine Posture Decreased Lordosis Shoulder Posture (L) Elevated Scapula Posture (R) Depressed Arm Posture (L) Internally Rotated,(R) Internally Rotated Pelvis Posture Posterior Tilted Knee Posture (R) Genu Varus,(L) Genu Valgus Palpation Assessment Location R shoulder Palpation Location Tender at R Deltoid insertion Palpation Findings Tenderness PT-OP-K Range of Motion Start: 11/27/21 18:37 Freq: Status: Active Protocol: Document 12/02/21 13:50 LRN (Rec: 12/02/21 14:35 LRN [id number]) Shoulder Goniometric Range of Motion Shoulder Right Passive Shoulder ROM WFL No Testing Position Supine External Rotation at 90 degrees 50 Abduction Internal Rotation 80 Left Passive Shoulder ROM WFL Yes Testing Position Supine External Rotation at 90 degrees 90 Abduction Internal Rotation 90 Right Active Shoulder ROM WFL No Testing Position Sitting Flexion 125 Extension 50 Abduction 90 External Rotation at 0 degrees Abduction 54 Internal Rotation Behind Back (text) T6 Comments Overhead Base of head Left Active Shoulder ROM WFL Yes Flexion 152 Extension 52 Abduction 161 External Rotation at 0 degrees Abduction 65 Internal Rotation Behind Back (text) T6 Comments Overhead T2 PT-OP-L Special Tests Start: 11/27/21 18:37 Freq: Status: Active Protocol: Document 12/02/21 13:50 LRN (Rec: 12/02/21 16:46 LRN [id number]) Special Tests Shoulder Special Tests Elevation Impingement Test Results R shoulder: Positive Comments Pain, indicating possible RC injury. IR/Horizontal ADD Impingement Test Results R shoulder: Positive Comments Pain, indicating possible RC injury. Drop Arm Rotator Cuff Test Results R shoulder: Positive Comments Pt demonstrated lack of arm control with lowering of R arm when in max tolerated AB, indicating possible RC injury. Belly Press Test Results R shoulder: negative Comments Negative for IR dysfunction PT-OP-M Strength Start: 11/27/21 18:37 Freq: Status: Active Protocol: Document 12/02/21 13:50 LRN (Rec: 12/02/21 14:35 LRN [id number]) Shoulder Strength Shoulder Manual Muscle Testing Right Flexion 3 Fair Extension 5 Normal Abduction (C5) 3 Fair Adduction 5 Normal External Rotation 3+ Fair+ Internal Rotation 4 Good Left Flexion 5 Normal Extension 5 Normal Abduction (C5) 3 Fair Adduction 5 Normal External Rotation 3 Fair Internal Rotation 5 Normal PT-OP-Q Treatments Start: 11/27/21 18:37 Freq: Status: Active Protocol: Document 12/04/21 13:51 SP (Rec: 12/04/21 14:32 SP [id number]) Therapeutic Exercises Supine Exercises FF Supine Exercise Name R- added to HEP Resistance AROM Equipment Used trek pole Reps/Minutes x20 reps Comments cued painfree range: 124 deg FF R shoulder ER stretch Supine Exercise Name R shoulder ER/IR stretch- reviewed HEP Side right Equipment Used using trek pole (has at home) Reps/Minutes x20 reps Comments cued 45-90 * elbow flexion rotation out to side (40 deg painfree) Sitting Exercises scap retraction Sitting Exercise Name added to HEP Side bilateral Resistance AROM Reps/Minutes 10 x10 Comments cued slow 10 sec count, tall posture. Manual Therapy Treatment Soft Tissue Mobilization R Shld Body Location pec, bicep, Mobilization Type Strumming Intensity/Depth Moderate Body Position Hooklying Comments manual painfree, states usually pain over mid anterior humerus, felt better after manual. Joint Mobilizations GH jt Joint R Direction posterior, inferior glide Grade II Body Position Hooklying Comments manual, no pain Self-Care/Home Management Treatment Education Patient Education Home Exercise Program,Posture Other Education Initiated supine FF, ER w/ wand. Sleeping on side RUE support. Knows to use MHP if needed for comfort. PT-OP-T Assessment and Plan Start: 11/27/21 18:37 Freq: Status: Active Protocol: Document 12/04/21 13:51 SP (Rec: 12/04/21 14:32 SP [id number]) Physical Therapy Assessment Goals Three Impairment Decreased R shoulder mobility Short Term Goal (STG) Improve R shoulder mobility to be able to put coat or clothes on with minimal pain. STG Duration 01/18/22 Flight Test Supervisor Goal (LTG) Move R arm normal (90% of normal) to close car door with minimal pain. LTG Duration 03/02/22 Two Impairment Decreased R shoulder strength Short Term Goal (STG) Gain strength in R shoulder to return to piano play. STG Duration 01/18/22 Flight Test Supervisor Goal (LTG) Gain strength in R arm to open bottles or jars. LTG Duration 03/02/22 One Impairment HEP Short Term Goal (STG) Pt able to demonstrate ability to use clippers for pruning or gardening. STG Duration 01/18/22 Fdc Goal (LTG) Independent with HEP of scapular stab, shoulder, elbow ROM and strengthening ex's. LTG Duration 03/02/22 Assessment Summary Assessment Pt responded well to manual and initiated HEP cued for set up and proper form, slow controlled movement for safety and painfree movement, provided hand outs for recall and allowable reps can do. Pt reported no pillow assist felt better on R UE for sleeping and has pillows to use at home . Pt understands use of MHP as needed for comfort. Physical Therapy Plan Frequency and Duration Frequency of Treatment 2x/Week Plan of Care Start Date 12/02/21 Plan of Care End Date 03/02/22 Therapeutic Interventions Therapeutic Interventions Home Exercise Program,Joint Mobilizations,Manual Therapy, Neuromuscular Re-education, Patient/Caregiver Education, Self-Care/Home Management,Soft Tissue Mobilization,Taping, Therapeutic Exercises Modalities Cold Pack/Ice Massage,Electric Stimulation,Hot Packs, Iontophoresis,Ultrasound Next Visit Focus/Plan Next Note Type Treatment Note Next Visit Plan REcheck HEP: supine FF, R shld AAROM ER, seated scap retraction. Next tx: pec stretch, UT stretch, side shld ER AROM, check pourer off strength, and add theraputty gripping R , R shld future isometrics, possible nerve glide if tingling when wakes up. POC: Assess R elbow DTR's and elbow/wrist strength (note pt is L hand dominant). Assess JMT of R GHJ for capsular dysfunction, Check labrum. Start POC: R shoulder ROM ex' s, R shoulder/scapula AROM of RC with progression of strengthening as tolerated with HEP as needed. STM Deltoid, HEP: Strengthening of elbow, wrist. Modalities to include CP, MH/EStim.
--- NOTE | 2021-12-09 16:53 | PT.OTN ---
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 Has . Pt is L handed. PT-OP-B Current Condition Start: 11/27/21 18:37 Freq: Status: Active Protocol: Document 12/02/21 13:50 LRN (Rec: 12/02/21 14:35 LRN [id number]) Current Condition History of Current Condition Onset Date October 28, 2021 Current Complaints Pain in R lateral shoulder and aches in the distal arm with weakness. History of Current Condition Tripped on breadspread and flew across the room landing on R arm with arms reaching to the floor. R hand tingles and the R hand/arm feels weak. Pt is L handed. Prior Treatments and Tests Increased Motrin from 800 mg/ day to 1200 mg/day. Previously taking Motrin after rebuilding tib/fib plateau in 1990 and also due to arthritis everywhere. X-ray - recent one shows no fracture. Cat scan - showed no fractures Treatment Goals Patient/Caregiver Goals Gain strength back in R arm Move R arm normal. Prior Functional Status Baseline Function- ADL's Independent Baseline Function- Mobility Independent Baseline Function- Recreation/Hobbies Gardening, canoe's in summer, and playing piano. Current Functional Impairments (Reported) Functional Limitations- ADL's Hold on playing the piano and canoe. Can't close doors (including cars), doing back of hair, getting dressed. 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 PT-OP-C Subjective Start: 11/27/21 18:37 Freq: Status: Active Protocol: Document 12/09/21 10:31 LRN (Rec: 12/09/21 11:16 LRN [id number]) OP-PT Subjective Patient Comments Patient Comments States she had popping pain with supine wand exer for flex and was not sure of angles for R shoulder ER stretch. PT-OP-H Neuro Start: 11/27/21 18:37 Freq: Status: Active Protocol: Document 12/09/21 10:31 LRN (Rec: 12/09/21 16:52 LRN [id number]) Deep Tendon Reflex & Clonus Assessment Deep Tendon Reflex Bilateral Brachioradialis Deep Tendon Reflex 2+ Normal Bilateral Tricep Deep Tendon Reflex 2+ Normal Bilateral Bicep Deep Tendon Reflex 2+ Normal PT-OP-J Posture/Palpation/Skin Start: 11/27/21 18:37 Freq: Status: Active Protocol: Document 12/02/21 13:50 LRN (Rec: 12/02/21 14:35 LRN [id number]) Posture Evaluation Position Standing Head/C-Spine Posture Forward Head T-Spine Posture Increased Kyphosis L-Spine Posture Decreased Lordosis Shoulder Posture (L) Elevated Scapula Posture (R) Depressed Arm Posture (L) Internally Rotated,(R) Internally Rotated Pelvis Posture Posterior Tilted Knee Posture (R) Genu Varus,(L) Genu Valgus Palpation Assessment Location R shoulder Palpation Location Tender at R Deltoid insertion Palpation Findings Tenderness PT-OP-K Range of Motion Start: 11/27/21 18:37 Freq: Status: Active Protocol: Document 12/02/21 13:50 LRN (Rec: 12/02/21 14:35 LRN [id number]) Shoulder Goniometric Range of Motion Shoulder Right Passive Shoulder ROM WFL No Testing Position Supine External Rotation at 90 degrees 50 Abduction Internal Rotation 80 Left Passive Shoulder ROM WFL Yes Testing Position Supine External Rotation at 90 degrees 90 Abduction Internal Rotation 90 Right Active Shoulder ROM WFL No Testing Position Sitting Flexion 125 Extension 50 Abduction 90 External Rotation at 0 degrees Abduction 54 Internal Rotation Behind Back (text) T6 Comments Overhead Base of head Left Active Shoulder ROM WFL Yes Flexion 152 Extension 52 Abduction 161 External Rotation at 0 degrees Abduction 65 Internal Rotation Behind Back (text) T6 Comments Overhead T2 PT-OP-L Special Tests Start: 11/27/21 18:37 Freq: Status: Active Protocol: Document 12/02/21 13:50 LRN (Rec: 12/02/21 16:46 LRN [id number]) Special Tests Shoulder Special Tests Elevation Impingement Test Results R shoulder: Positive Comments Pain, indicating possible RC injury. IR/Horizontal ADD Impingement Test Results R shoulder: Positive Comments Pain, indicating possible RC injury. Drop Arm Rotator Cuff Test Results R shoulder: Positive Comments Pt demonstrated lack of arm control with lowering of R arm when in max tolerated AB, indicating possible RC injury. Belly Press Test Results R shoulder: negative Comments Negative for IR dysfunction PT-OP-M Strength Start: 11/27/21 18:37 Freq: Status: Active Protocol: Document 12/09/21 10:31 LRN (Rec: 12/09/21 11:16 LRN [id number]) Elbow/Forearm Strength Elbow and Forearm Manual Muscle Testing Right Comments WNL Left Comments WNL Wrist Strength Wrist Manual Muscle Testing Right Comments WNL except UD is 4-/5. Pt had achiness in forearm after MMT. Left Comments WNL PT-OP-Q Treatments Start: 11/27/21 18:37 Freq: Status: Active Protocol: Document 12/09/21 10:31 LRN (Rec: 12/09/21 11:16 LRN [id number]) Therapeutic Exercises Supine Exercises FF Supine Exercise Name R Resistance AROM Equipment Used Cane Reps/Minutes 20-30 H x 8 Comments Cued for scapular retraction/ depression R shoulder ER stretch Supine Exercise Name R shoulder ER stretch @ 45 & 90 deg's shdr AB. Side right Equipment Used Cane Reps/Minutes 20-30 H x 8 Comments cued 45-90 shldr AB Manual Therapy Treatment Joint Mobilizations GH jt Joint R Direction posterior, inferior glide Grade II Body Position Hooklying Comments manual, no pain Self-Care/Home Management Treatment Education Patient Education Home Exercise Program,Safety Other Education Discussed possible reasons for clicking at the R shoulder with FF stretch ex. I/S pt to self stretch jt capsule before ROM ex and in context of clicking at R shoulder. Activities Self-Care/Home Management Activities Issued & reviewed HEP: Self GHJ mob inferior glide in sitting, and sleepers stretch for Subscapularis stretch. PT-OP-T Assessment and Plan Start: 11/27/21 18:37 Freq: Status: Active Protocol: Document 12/09/21 10:31 LRN (Rec: 12/09/21 11:16 LRN [id number]) Physical Therapy Assessment Goals Three Impairment Decreased R shoulder mobility Short Term Goal (STG) Improve R shoulder mobility to be able to put coat or clothes on with minimal pain. STG Duration 01/18/22 Fdc Goal (LTG) Move R arm normal (90% of normal) to close car door with minimal pain. LTG Duration 03/02/22 Two Impairment Decreased R shoulder strength Short Term Goal (STG) Gain strength in R shoulder to return to piano play. STG Duration 01/18/22 Fdc Goal (LTG) Gain strength in R arm to open bottles or jars. LTG Duration 03/02/22 One Impairment HEP Short Term Goal (STG) Pt able to demonstrate ability to use clippers for pruning or gardening. STG Duration 01/18/22 Crab Fisherman Goal (LTG) Independent with HEP of scapular stab, shoulder, elbow ROM and strengthening ex's. LTG Duration 03/02/22 Assessment Summary Assessment Fair understanding of R shldr ER cane stretch to start, good understanding and positioning after training. Pt had no clicking at R shldr after JMT mobs. R elbow DTR's is normal and elbow/wrist strength is normal except R wrist UD is 4- /5. R GHJ capsular tightness is with posterior and inferior mobs. Physical Therapy Plan Frequency and Duration Frequency of Treatment 2x/Week Plan of Care Start Date 12/02/21 Plan of Care End Date 03/02/22 Next Visit Focus/Plan Next Note Type Treatment Note Next Visit Plan Recheck HEP: seated scap retraction, sleeper stretch and GHJ inferior glide self mob. Next tx: posterior GHJ capsule stretch, pec stretch, UT stretch, side shldr ER AROM , Check teletray operator strength, and add theraputty gripping R, R shldr future isometrics, possible nerve glide if tingling when wakes up. Check labrum. POC: (note pt is L hand dominant). Start POC: R shoulder ROM ex' s, R shoulder/scapula AROM of RC with progression of strengthening as tolerated with HEP as needed. STM Deltoid, HEP: Strengthening of elbow, wrist. Modalities to include CP, MH/EStim.
--- NOTE | 2021-12-12 16:14 | PT.OTN ---
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 Has . Pt is L handed. PT-OP-B Current Condition Start: 11/27/21 18:37 Freq: Status: Active Protocol: Document 12/02/21 13:50 LRN (Rec: 12/02/21 14:35 LRN [id number]) Current Condition History of Current Condition Onset Date October 28, 2021 Current Complaints Pain in R lateral shoulder and aches in the distal arm with weakness. History of Current Condition Tripped on breadspread and flew across the room landing on R arm with arms reaching to the floor. R hand tingles and the R hand/arm feels weak. Pt is L handed. Prior Treatments and Tests Increased Motrin from 800 mg/ day to 1200 mg/day. Previously taking Motrin after rebuilding tib/fib plateau in 1990 and also due to arthritis everywhere. X-ray - recent one shows no fracture. Cat scan - showed no fractures Treatment Goals Patient/Caregiver Goals Gain strength back in R arm Move R arm normal. Prior Functional Status Baseline Function- ADL's Independent Baseline Function- Mobility Independent Baseline Function- Recreation/Hobbies Gardening, canoe's in summer, and playing piano. Current Functional Impairments (Reported) Functional Limitations- ADL's Hold on playing the piano and canoe. Can't close doors (including cars), doing back of hair, getting dressed. 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 PT-OP-C Subjective Start: 11/27/21 18:37 Freq: Status: Active Protocol: Document 12/12/21 15:22 LRN (Rec: 12/12/21 16:13 LRN [id number]) OP-PT Subjective Patient Comments Patient Comments Arm feels a little better. No longer having the sharp pains . PT-OP-H Neuro Start: 11/27/21 18:37 Freq: Status: Active Protocol: Document 12/09/21 10:31 LRN (Rec: 12/09/21 16:52 LRN [id number]) Deep Tendon Reflex & Clonus Assessment Deep Tendon Reflex Bilateral Brachioradialis Deep Tendon Reflex 2+ Normal Bilateral Tricep Deep Tendon Reflex 2+ Normal Bilateral Bicep Deep Tendon Reflex 2+ Normal PT-OP-J Posture/Palpation/Skin Start: 11/27/21 18:37 Freq: Status: Active Protocol: Document 12/02/21 13:50 LRN (Rec: 12/02/21 14:35 LRN [id number]) Posture Evaluation Position Standing Head/C-Spine Posture Forward Head T-Spine Posture Increased Kyphosis L-Spine Posture Decreased Lordosis Shoulder Posture (L) Elevated Scapula Posture (R) Depressed Arm Posture (L) Internally Rotated,(R) Internally Rotated Pelvis Posture Posterior Tilted Knee Posture (R) Genu Varus,(L) Genu Valgus Palpation Assessment Location R shoulder Palpation Location Tender at R Deltoid insertion Palpation Findings Tenderness PT-OP-K Range of Motion Start: 11/27/21 18:37 Freq: Status: Active Protocol: Document 12/02/21 13:50 LRN (Rec: 12/02/21 14:35 LRN [id number]) Shoulder Goniometric Range of Motion Shoulder Right Passive Shoulder ROM WFL No Testing Position Supine External Rotation at 90 degrees 50 Abduction Internal Rotation 80 Left Passive Shoulder ROM WFL Yes Testing Position Supine External Rotation at 90 degrees 90 Abduction Internal Rotation 90 Right Active Shoulder ROM WFL No Testing Position Sitting Flexion 125 Extension 50 Abduction 90 External Rotation at 0 degrees Abduction 54 Internal Rotation Behind Back (text) T6 Comments Overhead Base of head Left Active Shoulder ROM WFL Yes Flexion 152 Extension 52 Abduction 161 External Rotation at 0 degrees Abduction 65 Internal Rotation Behind Back (text) T6 Comments Overhead T2 PT-OP-L Special Tests Start: 11/27/21 18:37 Freq: Status: Active Protocol: Document 12/02/21 13:50 LRN (Rec: 12/02/21 16:46 LRN [id number]) Special Tests Shoulder Special Tests Elevation Impingement Test Results R shoulder: Positive Comments Pain, indicating possible RC injury. IR/Horizontal ADD Impingement Test Results R shoulder: Positive Comments Pain, indicating possible RC injury. Drop Arm Rotator Cuff Test Results R shoulder: Positive Comments Pt demonstrated lack of arm control with lowering of R arm when in max tolerated AB, indicating possible RC injury. Belly Press Test Results R shoulder: negative Comments Negative for IR dysfunction PT-OP-M Strength Start: 11/27/21 18:37 Freq: Status: Active Protocol: Document 12/09/21 10:31 LRN (Rec: 12/09/21 11:16 LRN [id number]) Elbow/Forearm Strength Elbow and Forearm Manual Muscle Testing Right Comments WNL Left Comments WNL Wrist Strength Wrist Manual Muscle Testing Right Comments WNL except UD is 4-/5. Pt had achiness in forearm after MMT. Left Comments WNL PT-OP-Q Treatments Start: 11/27/21 18:37 Freq: Status: Active Protocol: Document 12/12/21 15:22 LRN (Rec: 12/12/21 16:13 LRN [id number]) Therapeutic Exercises Supine Exercises FF Supine Exercise Name R Shoulder flex stretch Side right Resistance AROM Equipment Used Cane Reps/Minutes 20-30 H x 8 Comments Cued for scapular retraction/ depression R shoulder ER stretch Supine Exercise Name R shoulder ER stretch @ 45 & 90 deg's shdr AB. Side right Equipment Used Cane Reps/Minutes 20-30 H x 8 Comments cued 45-90 shldr AB Sidelying Exercises Sleeper stretch Sidelying Exercise Name Sleeper stretch Side right Reps/Minutes 1' x 2 Sitting Exercises Shoulder Flex stretch Sitting Exercise Name Leaning forward onto table Side right Reps/Minutes 20 Holds x 3' Shoulder AB stretch Sitting Exercise Name Leaning to side of table for AB stretch Side right Reps/Minutes 20 Holds x 3' scap retraction Sitting Exercise Name Scap retract Side bilateral Resistance AROM Reps/Minutes 10 x10 Comments cued slow 10 sec count, tall posture. Manual Therapy Treatment Soft Tissue Mobilization R Shld Body Location Stretch flex, ER, IR Mobilization Type Sustained Pressure Comments Manual therapy stretching per pt tolerance Joint Mobilizations GH jt Joint GHJ Direction posterior, inferior glide Grade II Body Position Hooklying Comments manual, no pain Self-Care/Home Management Treatment Education Patient Education Home Exercise Program Activities Self-Care/Home Management Activities Issued & reviewed HEP: Posterior capsule stretch, shoulder flex/ab stretch w/arm on table. PT-OP-T Assessment and Plan Start: 11/27/21 18:37 Freq: Status: Active Protocol: Document 12/12/21 15:22 LRN (Rec: 12/12/21 16:13 LRN [id number]) Physical Therapy Assessment Goals Three Impairment Decreased R shoulder mobility Short Term Goal (STG) Improve R shoulder mobility to be able to put coat or clothes on with minimal pain. STG Duration 01/18/22 Detention Goal (LTG) Move R arm normal (90% of normal) to close car door with minimal pain. LTG Duration 03/02/22 Two Impairment Decreased R shoulder strength Short Term Goal (STG) Gain strength in R shoulder to return to piano play. STG Duration 01/18/22 Network Operations Lead Goal (LTG) Gain strength in R arm to open bottles or jars. LTG Duration 03/02/22 One Impairment HEP Short Term Goal (STG) Pt able to demonstrate ability to use clippers for pruning or gardening. STG Duration 01/18/22 Detention Goal (LTG) Independent with HEP of scapular stab, shoulder, elbow ROM and strengthening ex's. LTG Duration 03/02/22 Assessment Summary Assessment Pt much improved in ease of mobility with R shoulder flex/ ER/AB/IR. Passive ER is ~70 deg's. Pt able to stretch R shoulder with tolerable pain. Fair recall of HEP previously issued, review needed. Physical Therapy Plan Frequency and Duration Frequency of Treatment 2x/Week Plan of Care Start Date 12/02/21 Plan of Care End Date 03/02/22 Next Visit Focus/Plan Next Note Type Treatment Note Next Visit Plan Review R GHJ inferior glide self mob. Next tx: posterior R GHJ capsule stretch, pec stretch, UT stretch, side shldr ER AROM, Check annealer strength, and add theraputty gripping R, R shldr future isometrics, possible nerve glide if tingling when wakes up. Check labrum. POC: (note pt is L hand dominant). Start POC: R shoulder/scapula AROM HEP and progression of RC strengthening as tolerated with HEP as needed. STM Deltoid, HEP: Strengthening of elbow, wrist. Modalities to include CP, MH/EStim.
--- NOTE | 2021-12-16 16:11 | PT.OTN ---
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 Has . Pt is L handed. PT-OP-B Current Condition Start: 11/27/21 18:37 Freq: Status: Active Protocol: Document 12/02/21 13:50 LRN (Rec: 12/02/21 14:35 LRN [id number]) Current Condition History of Current Condition Onset Date October 28, 2021 Current Complaints Pain in R lateral shoulder and aches in the distal arm with weakness. History of Current Condition Tripped on breadspread and flew across the room landing on R arm with arms reaching to the floor. R hand tingles and the R hand/arm feels weak. Pt is L handed. Prior Treatments and Tests Increased Motrin from 800 mg/ day to 1200 mg/day. Previously taking Motrin after rebuilding tib/fib plateau in 1990 and also due to arthritis everywhere. X-ray - recent one shows no fracture. Cat scan - showed no fractures Treatment Goals Patient/Caregiver Goals Gain strength back in R arm Move R arm normal. Prior Functional Status Baseline Function- ADL's Independent Baseline Function- Mobility Independent Baseline Function- Recreation/Hobbies Gardening, canoe's in summer, and playing piano. Current Functional Impairments (Reported) Functional Limitations- ADL's Hold on playing the piano and canoe. Can't close doors (including cars), doing back of hair, getting dressed. 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 PT-OP-C Subjective Start: 11/27/21 18:37 Freq: Status: Active Protocol: Document 12/16/21 09:06 LRN (Rec: 12/16/21 09:49 LRN [id number]) OP-PT Subjective Patient Comments Patient Comments States arm is getting better, she is a little less achy and a little more strength, is easier to do dishes and cooking. States putting clothes and coat on is getting easier. PT-OP-H Neuro Start: 11/27/21 18:37 Freq: Status: Active Protocol: Document 12/09/21 10:31 LRN (Rec: 12/09/21 16:52 LRN [id number]) Deep Tendon Reflex & Clonus Assessment Deep Tendon Reflex Bilateral Brachioradialis Deep Tendon Reflex 2+ Normal Bilateral Tricep Deep Tendon Reflex 2+ Normal Bilateral Bicep Deep Tendon Reflex 2+ Normal PT-OP-J Posture/Palpation/Skin Start: 11/27/21 18:37 Freq: Status: Active Protocol: Document 12/02/21 13:50 LRN (Rec: 12/02/21 14:35 LRN [id number]) Posture Evaluation Position Standing Head/C-Spine Posture Forward Head T-Spine Posture Increased Kyphosis L-Spine Posture Decreased Lordosis Shoulder Posture (L) Elevated Scapula Posture (R) Depressed Arm Posture (L) Internally Rotated,(R) Internally Rotated Pelvis Posture Posterior Tilted Knee Posture (R) Genu Varus,(L) Genu Valgus Palpation Assessment Location R shoulder Palpation Location Tender at R Deltoid insertion Palpation Findings Tenderness PT-OP-K Range of Motion Start: 11/27/21 18:37 Freq: Status: Active Protocol: Document 12/16/21 09:06 LRN (Rec: 12/16/21 09:49 LRN [id number]) Shoulder Goniometric Range of Motion Shoulder Right Passive Shoulder ROM WFL No Testing Position Supine Flexion 167 External Rotation at 90 degrees 54 Abduction Internal Rotation 65 Left Passive Shoulder ROM WFL Yes Testing Position Supine Flexion 178 External Rotation at 90 degrees 90 Abduction Internal Rotation 90 PT-OP-L Special Tests Start: 11/27/21 18:37 Freq: Status: Active Protocol: Document 12/02/21 13:50 LRN (Rec: 12/02/21 16:46 LRN [id number]) Special Tests Shoulder Special Tests Elevation Impingement Test Results R shoulder: Positive Comments Pain, indicating possible RC injury. IR/Horizontal ADD Impingement Test Results R shoulder: Positive Comments Pain, indicating possible RC injury. Drop Arm Rotator Cuff Test Results R shoulder: Positive Comments Pt demonstrated lack of arm control with lowering of R arm when in max tolerated AB, indicating possible RC injury. Belly Press Test Results R shoulder: negative Comments Negative for IR dysfunction PT-OP-M Strength Start: 11/27/21 18:37 Freq: Status: Active Protocol: Document 12/09/21 10:31 LRN (Rec: 12/09/21 11:16 LRN [id number]) Elbow/Forearm Strength Elbow and Forearm Manual Muscle Testing Right Comments WNL Left Comments WNL Wrist Strength Wrist Manual Muscle Testing Right Comments WNL except UD is 4-/5. Pt had achiness in forearm after MMT. Left Comments WNL PT-OP-Q Treatments Start: 11/27/21 18:37 Freq: Status: Active Protocol: Document 12/16/21 09:06 LRN (Rec: 12/16/21 09:49 LRN [id number]) Therapeutic Exercises Supine Exercises Median n glide/stretch Supine Exercise Name Median n glide/stretch Side right Reps/Minutes 3' Comments Extra time to determine position for max tolerated stretch(moving wrst/elb) FF Supine Exercise Name R Shoulder flex stretch Side right Resistance AROM Equipment Used Cane Reps/Minutes 20-30 H x 8 Comments Cued for scapular retraction/ depression R shoulder ER stretch Supine Exercise Name R shoulder ER stretch @ 45 & 90 deg's shdr AB. Side right Equipment Used Cane Reps/Minutes 20-30 H x 8 Comments cued 45-90 shldr AB Sidelying Exercises Sleeper stretch Sidelying Exercise Name Sleeper stretch Side right Reps/Minutes 1' x 2 Sitting Exercises Shoulder Flex stretch Sitting Exercise Name Leaning forward onto table Side right Reps/Minutes 1' review Shoulder AB stretch Sitting Exercise Name Leaning to side of table for AB stretch Side right Reps/Minutes 20 Holds x 3' scap retraction Sitting Exercise Name Scap retract Side bilateral Resistance AROM Reps/Minutes 10 x10 Comments cued slow 10 sec count, tall posture. Standing Exercises shoulder IR Standing Exercise Name Shoulder IR stretch with towel f/b active assisted reaching up back. Side right Equipment Used towel Reps/Minutes 2x Manual Therapy Treatment Joint Mobilizations GH jt Joint GHJ Direction posterior, inferior glide Grade II Body Position Hooklying Comments manual, no pain Self-Care/Home Management Treatment Education Patient Education Home Exercise Program Activities Self-Care/Home Management Activities Issued & reviewed HEP: Median n stretch & standing R shoulder IR with towel PT-OP-T Assessment and Plan Start: 11/27/21 18:37 Freq: Status: Active Protocol: Document 12/16/21 09:06 LRN (Rec: 12/16/21 09:49 LRN [id number]) Physical Therapy Assessment Goals Three Impairment Decreased R shoulder mobility Short Term Goal (STG) Improve R shoulder mobility to be able to put coat or clothes on with minimal pain. STG Duration 01/18/22 (12/16/21: Improving ) Ore Dryer Goal (LTG) Move R arm normal (90% of normal) to close car door with minimal pain. LTG Duration 03/02/22 Two Impairment Decreased R shoulder strength Short Term Goal (STG) Gain strength in R shoulder to return to piano play. STG Duration 01/18/22 Mcfp Goal (LTG) Gain strength in R arm to open bottles or jars. LTG Duration 03/02/22 One Impairment HEP Short Term Goal (STG) Pt able to demonstrate ability to use clippers for pruning or gardening. STG Duration 01/18/22 Ore Dryer Goal (LTG) Independent with HEP of scapular stab, shoulder, elbow ROM and strengthening ex's. LTG Duration 03/02/22 Assessment Summary Assessment Pt R shoulder AROM is improving. shoulder active assistted horiz AD is normal, flex & ER is ~70-80% normal. Pt is weak; therefore RC strengthening is needed and appropriate to slowly advance. Physical Therapy Plan Frequency and Duration Frequency of Treatment 2x/Week Plan of Care Start Date 12/02/21 Plan of Care End Date 03/02/22 Next Visit Focus/Plan Next Note Type Treatment Note Next Visit Plan Review R GHJ inferior glide self mob. Check driveway attendant strength, and add theraputty gripping R, R shldr future isometrics, possible nerve glide if tingling when wakes up Check labrum. POC: Posterior R GHJ capsule stretch, pec stretch, UT stretch, side shldr ER AROM. R shoulder/scapula AROM HEP and progression of RC strengthening as tolerated with HEP as needed. STM Deltoid, HEP: Strengthening of elbow, wrist. Modalities to include CP, MH/EStim. (note pt is L hand dominant).
--- NOTE | 2021-12-19 15:15 | PT.OTN ---
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 Has . Pt is L handed. PT-OP-B Current Condition Start: 11/27/21 18:37 Freq: Status: Active Protocol: Document 12/02/21 13:50 LRN (Rec: 12/02/21 14:35 LRN [id number]) Current Condition History of Current Condition Onset Date October 28, 2021 Current Complaints Pain in R lateral shoulder and aches in the distal arm with weakness. History of Current Condition Tripped on breadspread and flew across the room landing on R arm with arms reaching to the floor. R hand tingles and the R hand/arm feels weak. Pt is L handed. Prior Treatments and Tests Increased Motrin from 800 mg/ day to 1200 mg/day. Previously taking Motrin after rebuilding tib/fib plateau in 1990 and also due to arthritis everywhere. X-ray - recent one shows no fracture. Cat scan - showed no fractures Treatment Goals Patient/Caregiver Goals Gain strength back in R arm Move R arm normal. Prior Functional Status Baseline Function- ADL's Independent Baseline Function- Mobility Independent Baseline Function- Recreation/Hobbies Gardening, canoe's in summer, and playing piano. Current Functional Impairments (Reported) Functional Limitations- ADL's Hold on playing the piano and canoe. Can't close doors (including cars), doing back of hair, getting dressed. 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 PT-OP-C Subjective Start: 11/27/21 18:37 Freq: Status: Active Protocol: Document 12/19/21 13:03 LRN (Rec: 12/19/21 13:49 LRN [id number]) OP-PT Subjective Patient Comments Patient Comments Yesterday R shoulder was achy and aches after ex's. PT-OP-H Neuro Start: 11/27/21 18:37 Freq: Status: Active Protocol: Document 12/09/21 10:31 LRN (Rec: 12/09/21 16:52 LRN [id number]) Deep Tendon Reflex & Clonus Assessment Deep Tendon Reflex Bilateral Brachioradialis Deep Tendon Reflex 2+ Normal Bilateral Tricep Deep Tendon Reflex 2+ Normal Bilateral Bicep Deep Tendon Reflex 2+ Normal PT-OP-J Posture/Palpation/Skin Start: 11/27/21 18:37 Freq: Status: Active Protocol: Document 12/02/21 13:50 LRN (Rec: 12/02/21 14:35 LRN [id number]) Posture Evaluation Position Standing Head/C-Spine Posture Forward Head T-Spine Posture Increased Kyphosis L-Spine Posture Decreased Lordosis Shoulder Posture (L) Elevated Scapula Posture (R) Depressed Arm Posture (L) Internally Rotated,(R) Internally Rotated Pelvis Posture Posterior Tilted Knee Posture (R) Genu Varus,(L) Genu Valgus Palpation Assessment Location R shoulder Palpation Location Tender at R Deltoid insertion Palpation Findings Tenderness PT-OP-K Range of Motion Start: 11/27/21 18:37 Freq: Status: Active Protocol: Document 12/19/21 13:03 LRN (Rec: 12/19/21 13:49 LRN [id number]) Shoulder Goniometric Range of Motion Shoulder Right Passive Shoulder ROM WFL No Testing Position Supine Flexion 168 External Rotation at 90 degrees 58 Abduction Internal Rotation 72 Left Passive Shoulder ROM WFL Yes Testing Position Supine Flexion 173 External Rotation at 90 degrees 90 Abduction Internal Rotation 90 Right Active Shoulder ROM WFL No Testing Position Sitting Flexion 152 Extension 55 Abduction 155 External Rotation at 0 degrees Abduction 69 Internal Rotation Behind Back (text) T6 Comments Overhead behind the back: T1 Left Active Shoulder ROM WFL Yes Flexion 152 Extension 52 Abduction 161 External Rotation at 0 degrees Abduction 65 Internal Rotation Behind Back (text) T8 Comments Overhead behind the back: T2 PT-OP-L Special Tests Start: 11/27/21 18:37 Freq: Status: Active Protocol: Document 12/02/21 13:50 LRN (Rec: 12/02/21 16:46 LRN [id number]) Special Tests Shoulder Special Tests Elevation Impingement Test Results R shoulder: Positive Comments Pain, indicating possible RC injury. IR/Horizontal ADD Impingement Test Results R shoulder: Positive Comments Pain, indicating possible RC injury. Drop Arm Rotator Cuff Test Results R shoulder: Positive Comments Pt demonstrated lack of arm control with lowering of R arm when in max tolerated AB, indicating possible RC injury. Belly Press Test Results R shoulder: negative Comments Negative for IR dysfunction PT-OP-M Strength Start: 11/27/21 18:37 Freq: Status: Active Protocol: Document 12/09/21 10:31 LRN (Rec: 12/09/21 11:16 LRN [id number]) Elbow/Forearm Strength Elbow and Forearm Manual Muscle Testing Right Comments WNL Left Comments WNL Wrist Strength Wrist Manual Muscle Testing Right Comments WNL except UD is 4-/5. Pt had achiness in forearm after MMT. Left Comments WNL PT-OP-Q Treatments Start: 11/27/21 18:37 Freq: Status: Active Protocol: Document 12/19/21 13:03 LRN (Rec: 12/19/21 13:49 LRN [id number]) Therapeutic Exercises Supine Exercises Median n glide/stretch Supine Exercise Name Median n glide/stretch Side right Reps/Minutes 3' Comments Extra time to determine position for max tolerated stretch(moving wrst/elb) FF Supine Exercise Name R Shoulder flex stretch Side right Resistance AROM Equipment Used Cane Reps/Minutes 20-30 H x 8 Comments Cued for scapular retraction/ depression R shoulder ER stretch Supine Exercise Name R shoulder ER stretch @ 90 deg 's shdr AB. Side right Equipment Used Cane Reps/Minutes 20-30 H x 5 Comments cued 45 shldr AB Sidelying Exercises Sleeper stretch Sidelying Exercise Name Sleeper stretch Side right Reps/Minutes 1' x 2 Comments Extra time taken to position properly Sitting Exercises Horiz AD stretch Sitting Exercise Name Horiz AD stretch Side right Reps/Minutes 60 x 2 scap retraction Sitting Exercise Name Scap retract Side bilateral Resistance AROM Reps/Minutes 10 x10 Comments cued slow 10 sec count, tall posture. Standing Exercises shoulder IR Standing Exercise Name Shoulder IR stretch with towel f/b active assisted reaching up back. Side right Equipment Used towel Reps/Minutes 2x Manual Therapy Treatment Joint Mobilizations GH jt Joint R GHJ Direction posterior Grade II Body Position Hooklying Comments manual, no pain Manual Techniques R shldr AAROM Type AAROM & PROM to R shoulder ( flex, AB, ER, IR) Body Location R shoulder Body Position Supine Reps/Duration 15' Comments AAROM taken Self-Care/Home Management Treatment Education Patient Education Home Exercise Program Activities Self-Care/Home Management Activities ...........ER TB PT-OP-T Assessment and Plan Start: 11/27/21 18:37 Freq: Status: Active Protocol: Document 12/19/21 13:03 LRN (Rec: 12/19/21 13:49 LRN [id number]) Physical Therapy Assessment Goals Three Impairment Decreased R shoulder mobility Short Term Goal (STG) Improve R shoulder mobility to be able to put coat or clothes on with minimal pain. STG Duration 01/18/22 (12/16/21: Improving ) Subcontracts Manager Goal (LTG) Move R arm normal (90% of normal) to close car door with minimal pain. LTG Duration 03/02/22 Two Impairment Decreased R shoulder strength Short Term Goal (STG) Gain strength in R shoulder to return to piano play. STG Duration 01/18/22 Subcontracts Manager Goal (LTG) Gain strength in R arm to open bottles or jars. LTG Duration 03/02/22 One Impairment HEP Short Term Goal (STG) Pt able to demonstrate ability to use clippers for pruning or gardening. STG Duration 01/18/22 Correction Goal (LTG) Independent with HEP of scapular stab, shoulder, elbow ROM and strengthening ex's. LTG Duration 03/02/22 Assessment Summary Assessment Pt R GHJ mobility is much improved for inferior glide. R shoulder ROM improved. ER is ~90 deg's AAROM, 57 deg's PROM; indicating pt resistive to PROM stretching. IR is ~90 % normal with AAROM. R Flex 168 deg's (L is 173 deg's). Pt is ready to begin strengthening with R shoulder ROM almost normal. Physical Therapy Plan Frequency and Duration Frequency of Treatment 2x/Week Plan of Care Start Date 12/02/21 Plan of Care End Date 03/02/22 Next Visit Focus/Plan Next Note Type Treatment Note Next Visit Plan Check checkout operator strength, and add theraputty gripping R, R shldr future isometrics, DC nerve glides if no tingling upon waking. Check labrum. POC: Posterior R GHJ capsule stretch, pec stretch, UT stretch, side shldr ER AROM. R shoulder/scapula AROM HEP and progression of RC strengthening as tolerated with HEP as needed. STM Deltoid, HEP: Strengthening of elbow, wrist. Modalities to include CP, MH/EStim. (note pt is L hand dominant).
--- NOTE | 2021-12-23 16:19 | PT.OTN ---
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 Has . Pt is L handed. PT-OP-B Current Condition Start: 11/27/21 18:37 Freq: Status: Active Protocol: Document 12/02/21 13:50 LRN (Rec: 12/02/21 14:35 LRN [id number]) Current Condition History of Current Condition Onset Date October 28, 2021 Current Complaints Pain in R lateral shoulder and aches in the distal arm with weakness. History of Current Condition Tripped on breadspread and flew across the room landing on R arm with arms reaching to the floor. R hand tingles and the R hand/arm feels weak. Pt is L handed. Prior Treatments and Tests Increased Motrin from 800 mg/ day to 1200 mg/day. Previously taking Motrin after rebuilding tib/fib plateau in 1990 and also due to arthritis everywhere. X-ray - recent one shows no fracture. Cat scan - showed no fractures Treatment Goals Patient/Caregiver Goals Gain strength back in R arm Move R arm normal. Prior Functional Status Baseline Function- ADL's Independent Baseline Function- Mobility Independent Baseline Function- Recreation/Hobbies Gardening, canoe's in summer, and playing piano. Current Functional Impairments (Reported) Functional Limitations- ADL's Hold on playing the piano and canoe. Can't close doors (including cars), doing back of hair, getting dressed. 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 PT-OP-C Subjective Start: 11/27/21 18:37 Freq: Status: Active Protocol: Document 12/23/21 15:18 LRN (Rec: 12/23/21 16:19 LRN [id number]) OP-PT Subjective Patient Comments Patient Comments No change. R wrist hurts a lot, but not always. Has hurt the wrist a couple times before, falling. Falls once a year, big falls. PT-OP-H Neuro Start: 11/27/21 18:37 Freq: Status: Active Protocol: Document 12/09/21 10:31 LRN (Rec: 12/09/21 16:52 LRN [id number]) Deep Tendon Reflex & Clonus Assessment Deep Tendon Reflex Bilateral Brachioradialis Deep Tendon Reflex 2+ Normal Bilateral Tricep Deep Tendon Reflex 2+ Normal Bilateral Bicep Deep Tendon Reflex 2+ Normal PT-OP-J Posture/Palpation/Skin Start: 11/27/21 18:37 Freq: Status: Active Protocol: Document 12/02/21 13:50 LRN (Rec: 12/02/21 14:35 LRN [id number]) Posture Evaluation Position Standing Head/C-Spine Posture Forward Head T-Spine Posture Increased Kyphosis L-Spine Posture Decreased Lordosis Shoulder Posture (L) Elevated Scapula Posture (R) Depressed Arm Posture (L) Internally Rotated,(R) Internally Rotated Pelvis Posture Posterior Tilted Knee Posture (R) Genu Varus,(L) Genu Valgus Palpation Assessment Location R shoulder Palpation Location Tender at R Deltoid insertion Palpation Findings Tenderness PT-OP-K Range of Motion Start: 11/27/21 18:37 Freq: Status: Active Protocol: Document 12/19/21 13:03 LRN (Rec: 12/19/21 13:49 LRN [id number]) Shoulder Goniometric Range of Motion Shoulder Right Passive Shoulder ROM WFL No Testing Position Supine Flexion 168 External Rotation at 90 degrees 58 Abduction Internal Rotation 72 Left Passive Shoulder ROM WFL Yes Testing Position Supine Flexion 173 External Rotation at 90 degrees 90 Abduction Internal Rotation 90 Right Active Shoulder ROM WFL No Testing Position Sitting Flexion 152 Extension 55 Abduction 155 External Rotation at 0 degrees Abduction 69 Internal Rotation Behind Back (text) T6 Comments Overhead behind the back: T1 Left Active Shoulder ROM WFL Yes Flexion 152 Extension 52 Abduction 161 External Rotation at 0 degrees Abduction 65 Internal Rotation Behind Back (text) T8 Comments Overhead behind the back: T2 PT-OP-L Special Tests Start: 11/27/21 18:37 Freq: Status: Active Protocol: Document 12/02/21 13:50 LRN (Rec: 12/02/21 16:46 LRN [id number]) Special Tests Shoulder Special Tests Elevation Impingement Test Results R shoulder: Positive Comments Pain, indicating possible RC injury. IR/Horizontal ADD Impingement Test Results R shoulder: Positive Comments Pain, indicating possible RC injury. Drop Arm Rotator Cuff Test Results R shoulder: Positive Comments Pt demonstrated lack of arm control with lowering of R arm when in max tolerated AB, indicating possible RC injury. Belly Press Test Results R shoulder: negative Comments Negative for IR dysfunction PT-OP-M Strength Start: 11/27/21 18:37 Freq: Status: Active Protocol: Document 12/23/21 15:18 LRN (Rec: 12/23/21 16:19 LRN [id number]) Hand Slitter Creaser Slotter Helper/Pinch Strength Hand Dominance Hand Dominance Left Hand Strength Right Comments Slitter Creaser Slotter Helper strength in k, 14, 12 (avg is 13.3) Left Comments Slitter Creaser Slotter Helper strength in k, 14, 14 (avg is 15) PT-OP-Q Treatments Start: 11/27/21 18:37 Freq: Status: Active Protocol: Document 12/23/21 15:18 LRN (Rec: 12/23/21 16:19 LRN [id number]) Therapeutic Exercises Sitting Exercises Ball/TB senior research consultant strengthening Sitting Exercise Name Ball/TB senior research consultant strengthening Side right Reps/Minutes 5 H x 10 Comments Extra time to determine max tolerated resistance. Forearm in neutral. [place] senior research consultant Sitting Exercise Name [place] senior research consultant end of table (sup/ pron) and forearm neutral with TPutty Side right Equipment Used Wrist pain with forearm in sup or pron; therefore DC'd in these positions. Reps/Minutes 5H x 10 Comments Extra time to determine appropriate position of neutral forearm R shoulder elevation Sitting Exercise Name R shoulder shrug Side right Reps/Minutes 5 H x 10 Finger Ext Sitting Exercise Name Finger extensions Side right Reps/Minutes 3' Full fist senior research consultant Sitting Exercise Name Full fist gripping with hand dynomometer & TPutty Side right Equipment Used Pt to do full finger extensions after flex Reps/Minutes 17' for 10 H and for quick squeezes Comments phys cuing to engage the DIP of thumb & fingers Standing Exercises Scapular pinches' Standing Exercise Name Scapular pinch with depression on the L side Side bilateral Reps/Minutes 10H x 10 shoulder IR Standing Exercise Name Shoulder IR stretch with towel f/b active assisted reaching up back. Side right Reps/Minutes 2x Self-Care/Home Management Treatment Education Patient Education Home Exercise Program Activities Self-Care/Home Management Activities Issued & reviewed HEP: Slitter Creaser Slotter Helper strengthening with ball and ball with TBand resistance. Issued Gr T-Putty. Extra time needed due to HEP printing difficulty. PT-OP-T Assessment and Plan Start: 11/27/21 18:37 Freq: Status: Active Protocol: Document 12/23/21 15:18 LRN (Rec: 12/23/21 16:19 LRN [id number]) Physical Therapy Assessment Goals Three Impairment Decreased R shoulder mobility Short Term Goal (STG) Improve R shoulder mobility to be able to put coat or clothes on with minimal pain. STG Duration 01/18/22 (12/16/21: Improving ) Custodial Goal (LTG) Move R arm normal (90% of normal) to close car door with minimal pain. LTG Duration 03/02/22 Two Impairment Decreased R shoulder strength Short Term Goal (STG) Gain strength in R shoulder to return to piano play. STG Duration 01/18/22 Custodial Goal (LTG) Gain strength in R arm to open bottles or jars. LTG Duration 03/02/22 One Impairment HEP Short Term Goal (STG) Pt able to demonstrate ability to use clippers for pruning or gardening. STG Duration 01/18/22 Custodial Goal (LTG) Independent with HEP of scapular stab, shoulder, elbow ROM and strengthening ex's. LTG Duration 03/02/22 Assessment Summary Assessment Pt R shoulder position is low in restful sitting but her mobility is good. She complains of pain in the R arm sometimes. She had discomfort in the upper shoulder after UT strengtheng, possibly from fatigue. Pt senior research consultant strength is mildly weak compared to norms of 75+ women . (R senior research consultant strength avg is 13. 3 kg, norm is 19.3). Physical Therapy Plan Frequency and Duration Frequency of Treatment 2x/Week Plan of Care Start Date 12/02/21 Plan of Care End Date 03/02/22 Next Visit Focus/Plan Next Note Type Treatment Note Next Visit Plan Assess progress to goal #3. R shldr isometrics, isotonic, ecc strengthening including horiz AB/AD for preparing to do pruning; HEP: Strengthening of elbow, wrist. DC nerve glides if no tingling upon waking. Check labrum. POC: Posterior R GHJ capsule stretch, pec stretch, L UT stretch, add sidelie R shldr ER AROM strengthening. R shoulder/scapula AROM HEP and progression of RC strengthening w/HEP. Manual STM R Deltoid as needed , Modalities of CP, MH/EStim as needed. (note pt is L hand dominant).
--- NOTE | 2021-12-25 15:25 | PT.OTN ---
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 Has . Pt is L handed. PT-OP-B Current Condition Start: 11/27/21 18:37 Freq: Status: Active Protocol: Document 12/02/21 13:50 LRN (Rec: 12/02/21 14:35 LRN [id number]) Current Condition History of Current Condition Onset Date October 28, 2021 Current Complaints Pain in R lateral shoulder and aches in the distal arm with weakness. History of Current Condition Tripped on breadspread and flew across the room landing on R arm with arms reaching to the floor. R hand tingles and the R hand/arm feels weak. Pt is L handed. Prior Treatments and Tests Increased Motrin from 800 mg/ day to 1200 mg/day. Previously taking Motrin after rebuilding tib/fib plateau in 1990 and also due to arthritis everywhere. X-ray - recent one shows no fracture. Cat scan - showed no fractures Treatment Goals Patient/Caregiver Goals Gain strength back in R arm Move R arm normal. Prior Functional Status Baseline Function- ADL's Independent Baseline Function- Mobility Independent Baseline Function- Recreation/Hobbies Gardening, canoe's in summer, and playing piano. Current Functional Impairments (Reported) Functional Limitations- ADL's Hold on playing the piano and canoe. Can't close doors (including cars), doing back of hair, getting dressed. 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 PT-OP-C Subjective Start: 11/27/21 18:37 Freq: Status: Active Protocol: Document 12/25/21 14:32 SP (Rec: 12/25/21 15:39 SP [id number]) OP-PT Subjective Patient Comments Patient Comments Pt reported little sore after last tx but recovered and thinks doing well with putty exercises. PT-OP-H Neuro Start: 11/27/21 18:37 Freq: Status: Active Protocol: Document 12/09/21 10:31 LRN (Rec: 12/09/21 16:52 LRN [id number]) Deep Tendon Reflex & Clonus Assessment Deep Tendon Reflex Bilateral Brachioradialis Deep Tendon Reflex 2+ Normal Bilateral Tricep Deep Tendon Reflex 2+ Normal Bilateral Bicep Deep Tendon Reflex 2+ Normal PT-OP-J Posture/Palpation/Skin Start: 11/27/21 18:37 Freq: Status: Active Protocol: Document 12/02/21 13:50 LRN (Rec: 12/02/21 14:35 LRN [id number]) Posture Evaluation Position Standing Head/C-Spine Posture Forward Head T-Spine Posture Increased Kyphosis L-Spine Posture Decreased Lordosis Shoulder Posture (L) Elevated Scapula Posture (R) Depressed Arm Posture (L) Internally Rotated,(R) Internally Rotated Pelvis Posture Posterior Tilted Knee Posture (R) Genu Varus,(L) Genu Valgus Palpation Assessment Location R shoulder Palpation Location Tender at R Deltoid insertion Palpation Findings Tenderness PT-OP-K Range of Motion Start: 11/27/21 18:37 Freq: Status: Active Protocol: Document 12/19/21 13:03 LRN (Rec: 12/19/21 13:49 LRN [id number]) Shoulder Goniometric Range of Motion Shoulder Right Passive Shoulder ROM WFL No Testing Position Supine Flexion 168 External Rotation at 90 degrees 58 Abduction Internal Rotation 72 Left Passive Shoulder ROM WFL Yes Testing Position Supine Flexion 173 External Rotation at 90 degrees 90 Abduction Internal Rotation 90 Right Active Shoulder ROM WFL No Testing Position Sitting Flexion 152 Extension 55 Abduction 155 External Rotation at 0 degrees Abduction 69 Internal Rotation Behind Back (text) T6 Comments Overhead behind the back: T1 Left Active Shoulder ROM WFL Yes Flexion 152 Extension 52 Abduction 161 External Rotation at 0 degrees Abduction 65 Internal Rotation Behind Back (text) T8 Comments Overhead behind the back: T2 PT-OP-L Special Tests Start: 11/27/21 18:37 Freq: Status: Active Protocol: Document 12/02/21 13:50 LRN (Rec: 12/02/21 16:46 LRN [id number]) Special Tests Shoulder Special Tests Elevation Impingement Test Results R shoulder: Positive Comments Pain, indicating possible RC injury. IR/Horizontal ADD Impingement Test Results R shoulder: Positive Comments Pain, indicating possible RC injury. Drop Arm Rotator Cuff Test Results R shoulder: Positive Comments Pt demonstrated lack of arm control with lowering of R arm when in max tolerated AB, indicating possible RC injury. Belly Press Test Results R shoulder: negative Comments Negative for IR dysfunction PT-OP-M Strength Start: 11/27/21 18:37 Freq: Status: Active Protocol: Document 12/23/21 15:18 LRN (Rec: 12/23/21 16:19 LRN [id number]) Hand Recordist Chief/Pinch Strength Hand Dominance Hand Dominance Left Hand Strength Right Comments Recordist Chief strength in k, 14, 12 (avg is 13.3) Left Comments Recordist Chief strength in k, 14, 14 (avg is 15) PT-OP-Q Treatments Start: 11/27/21 18:37 Freq: Status: Active Protocol: Document 12/25/21 14:32 SP (Rec: 12/25/21 15:39 SP [id number]) Therapeutic Exercises Supine Exercises Median n glide/stretch Supine Exercise Name Median n glide/stretch Side right Reps/Minutes no tingling when wake up Comments DIRECTOR INVESTOR RELATIONS DC'd per PT suggestion in plan. Sitting Exercises 5th MCP flexion, Adduction Sitting Exercise Name added to HEP- mcnamara and flexion gravity flow irrigator/press Side right Resistance green Reps/Minutes x10 Comments improved form with HOs. Ball/TB gravity flow irrigator strengthening Sitting Exercise Name Ball/TB gravity flow irrigator strengthening Side right Resistance green putty Reps/Minutes 5 H x 10 Comments good form Finger Ext Sitting Exercise Name Finger extensions Side right Resistance AROM> rubber band Reps/Minutes 3' Full fist gravity flow irrigator Sitting Exercise Name Full fist gripping with hand and fingers Side right Resistance green Equipment Used Pt to do full finger extensions after flex Reps/Minutes x10 Comments good form full DIP flexion 1- 4th MCP Standing Exercises shld ER Standing Exercise Name reviewed HEP Side bilateral Resistance Tb #1 Reps/Minutes 2x10 Comments good formo reviewed. D2 extension Standing Exercise Name added to HEP Side right Reps/Minutes 2x10 Comments cued good posture- progress closing car door motion D1 ext Standing Exercise Name added to HEP Side right Reps/Minutes 2x10 Comments cued good posture Scapular pinches' Standing Exercise Name Scapular pinch with depression on the L side Side bilateral Reps/Minutes 10H x 10 Self-Care/Home Management Treatment Education Patient Education Home Exercise Program Other Education added D1 and D2 extension for functional strengthening to eccentric items out of cabinet and close car door. Extra time education encouraged posture and self use of RUE now: put in last coat, close car door, open jars, pruning and proper form during tx today, verbalize I can do that. I need to start doing more have been babying R arm. PT-OP-T Assessment and Plan Start: 11/27/21 18:37 Freq: Status: Active Protocol: Document 12/25/21 14:32 SP (Rec: 12/25/21 15:39 SP [id number]) Physical Therapy Assessment Goals Three Impairment Decreased R shoulder mobility Short Term Goal (STG) Improve R shoulder mobility to be able to put coat or clothes on with minimal pain. : pt report alot better, very little pain put on coat RUE 2nd this tx, understands try use RUE more. STG Duration 01/18/22 (12/25/21: Improving) [facility] Goal (LTG) Move R arm normal (90% of normal) to close car door with minimal pain. 12/25/21: stated hasn't been using RUE as much but will try . LTG Duration 03/02/22 12/25/21: progressing Two Impairment Decreased R shoulder strength Short Term Goal (STG) Gain strength in R shoulder to return to piano play. 12/25/21: pt stated only played piano x1 and hard due to lack of hand strength, will play before next tx for feedback. STG Duration 01/18/22 (progressing 12/25/21) Engineering Technical Writer Goal (LTG) Gain strength in R arm to open bottles or jars. 12/25/21: She stated has been asking to do using her tool. Will try herself before next tx. LTG Duration 03/02/22 (12/25 progressing) One Impairment HEP Short Term Goal (STG) Pt able to demonstrate ability to use clippers for pruning or gardening. 12/25/21: did some gardening digging/ weed pulling pretty good. Will use her scissors for pruning before next tx for feedback. STG Duration 01/18/22 progressing 12/25/21 Engineering Technical Writer Goal (LTG) Independent with HEP of scapular stab, shoulder, elbow ROM and strengthening ex's. 12/25 21: added to HEP: D1 ext and D2 extension for strengthening to close car door, 1st MCP flexion putty. LTG Duration 03/02/22 progressing Assessment Summary Assessment Pt improved putty HEP and added 1st MCP for full gravity flow irrigator. Education on using RUE more: put R arm in last and trying closing car door. Added D1 and D2 extension w/ TB for functional strengthening toward goal # 3. DC'd nerve glide due to no tingling in hand waking up. Physical Therapy Plan Frequency and Duration Frequency of Treatment 2x/Week Plan of Care Start Date 12/02/21 Plan of Care End Date 03/02/22 Therapeutic Interventions Therapeutic Interventions Home Exercise Program,Joint Mobilizations,Manual Therapy, Neuromuscular Re-education, Patient/Caregiver Education, Self-Care/Home Management,Soft Tissue Mobilization,Taping, Therapeutic Exercises Modalities Cold Pack/Ice Massage,Electric Stimulation,Hot Packs, Iontophoresis,Ultrasound Next Visit Focus/Plan Next Note Type Treatment Note Next Visit Plan Recheck assess progress to goal #3, ed for self continue at home over weekend. R shldr isometrics, isotonic, ecc strengthening including horiz AB/AD for preparing to do pruning and closing car door; HEP: Strengthening of elbow, wrist. Check labrum. POC: Posterior R GHJ capsule stretch, pec stretch, L UT stretch, add sidelie R shldr ER AROM strengthening. R shoulder/scapula AROM HEP and progression of RC strengthening w/HEP. Manual STM R Deltoid as needed , Modalities of CP, MH/EStim as needed. (note pt is L handed) dominant ).
--- NOTE | 2021-12-30 15:15 | PT.OTN ---
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 Has . Pt is L handed. PT-OP-B Current Condition Start: 11/27/21 18:37 Freq: Status: Active Protocol: Document 12/02/21 13:50 LRN (Rec: 12/02/21 14:35 LRN [id number]) Current Condition History of Current Condition Onset Date October 28, 2021 Current Complaints Pain in R lateral shoulder and aches in the distal arm with weakness. History of Current Condition Tripped on breadspread and flew across the room landing on R arm with arms reaching to the floor. R hand tingles and the R hand/arm feels weak. Pt is L handed. Prior Treatments and Tests Increased Motrin from 800 mg/ day to 1200 mg/day. Previously taking Motrin after rebuilding tib/fib plateau in 1990 and also due to arthritis everywhere. X-ray - recent one shows no fracture. Cat scan - showed no fractures Treatment Goals Patient/Caregiver Goals Gain strength back in R arm Move R arm normal. Prior Functional Status Baseline Function- ADL's Independent Baseline Function- Mobility Independent Baseline Function- Recreation/Hobbies Gardening, canoe's in summer, and playing piano. Current Functional Impairments (Reported) Functional Limitations- ADL's Hold on playing the piano and canoe. Can't close doors (including cars), doing back of hair, getting dressed. 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 PT-OP-C Subjective Start: 11/27/21 18:37 Freq: Status: Active Protocol: Document 12/30/21 14:34 SP (Rec: 12/30/21 15:21 SP [id number]) OP-PT Subjective Patient Comments Patient Comments Pt stated little sore after last tx but did well. After performing finget exercises on own R hand swelled up and hurt. PT-OP-H Neuro Start: 11/27/21 18:37 Freq: Status: Active Protocol: Document 12/09/21 10:31 LRN (Rec: 12/09/21 16:52 LRN [id number]) Deep Tendon Reflex & Clonus Assessment Deep Tendon Reflex Bilateral Brachioradialis Deep Tendon Reflex 2+ Normal Bilateral Tricep Deep Tendon Reflex 2+ Normal Bilateral Bicep Deep Tendon Reflex 2+ Normal PT-OP-J Posture/Palpation/Skin Start: 11/27/21 18:37 Freq: Status: Active Protocol: Document 12/02/21 13:50 LRN (Rec: 12/02/21 14:35 LRN [id number]) Posture Evaluation Position Standing Head/C-Spine Posture Forward Head T-Spine Posture Increased Kyphosis L-Spine Posture Decreased Lordosis Shoulder Posture (L) Elevated Scapula Posture (R) Depressed Arm Posture (L) Internally Rotated,(R) Internally Rotated Pelvis Posture Posterior Tilted Knee Posture (R) Genu Varus,(L) Genu Valgus Palpation Assessment Location R shoulder Palpation Location Tender at R Deltoid insertion Palpation Findings Tenderness PT-OP-K Range of Motion Start: 11/27/21 18:37 Freq: Status: Active Protocol: Document 12/19/21 13:03 LRN (Rec: 12/19/21 13:49 LRN [id number]) Shoulder Goniometric Range of Motion Shoulder Right Passive Shoulder ROM WFL No Testing Position Supine Flexion 168 External Rotation at 90 degrees 58 Abduction Internal Rotation 72 Left Passive Shoulder ROM WFL Yes Testing Position Supine Flexion 173 External Rotation at 90 degrees 90 Abduction Internal Rotation 90 Right Active Shoulder ROM WFL No Testing Position Sitting Flexion 152 Extension 55 Abduction 155 External Rotation at 0 degrees Abduction 69 Internal Rotation Behind Back (text) T6 Comments Overhead behind the back: T1 Left Active Shoulder ROM WFL Yes Flexion 152 Extension 52 Abduction 161 External Rotation at 0 degrees Abduction 65 Internal Rotation Behind Back (text) T8 Comments Overhead behind the back: T2 PT-OP-L Special Tests Start: 11/27/21 18:37 Freq: Status: Active Protocol: Document 12/02/21 13:50 LRN (Rec: 12/02/21 16:46 LRN [id number]) Special Tests Shoulder Special Tests Elevation Impingement Test Results R shoulder: Positive Comments Pain, indicating possible RC injury. IR/Horizontal ADD Impingement Test Results R shoulder: Positive Comments Pain, indicating possible RC injury. Drop Arm Rotator Cuff Test Results R shoulder: Positive Comments Pt demonstrated lack of arm control with lowering of R arm when in max tolerated AB, indicating possible RC injury. Belly Press Test Results R shoulder: negative Comments Negative for IR dysfunction PT-OP-M Strength Start: 11/27/21 18:37 Freq: Status: Active Protocol: Document 12/23/21 15:18 LRN (Rec: 12/23/21 16:19 LRN [id number]) Hand Statistical Modeler/Pinch Strength Hand Dominance Hand Dominance Left Hand Strength Right Comments Statistical Modeler strength in k, 14, 12 (avg is 13.3) Left Comments Statistical Modeler strength in k, 14, 14 (avg is 15) PT-OP-Q Treatments Start: 11/27/21 18:37 Freq: Status: Active Protocol: Document 12/30/21 14:34 SP (Rec: 12/30/21 15:21 SP [id number]) Therapeutic Exercises Sitting Exercises 5th MCP flexion, Adduction Sitting Exercise Name reviewedHEP- mcnamara and flexion gravure printing machinist/press Side right Resistance green Reps/Minutes x10 Comments improved form with HOs. Ball/TB gravure printing machinist strengthening Sitting Exercise Name Ball/TB gravure printing machinist strengthening Side right Resistance green putty Reps/Minutes 5 H x 10 Comments good form Finger Ext Sitting Exercise Name Finger extensions 1-4 MCP Side right Resistance AROM> rubber band Reps/Minutes x10 reps each Comments cued stabilize other surrounding fingers Full fist gravure printing machinist Sitting Exercise Name Full fist gripping with hand and fingers Side right Resistance green Reps/Minutes x10 Comments good form full DIP flexion 1- 4th MCP- neutral wrist pos Standing Exercises shld ER Standing Exercise Name reviewed HEP Side bilateral Resistance Tb #1- hands in loop at end then wrap other end aroudn LUE Reps/Minutes 2x10 Comments good formo reviewed. D2 extension Standing Exercise Name reviewed HEP Side right Reps/Minutes 2x10 Comments cued good posture- progress closing car door motion D1 ext Standing Exercise Name reviewed HEP Side right Reps/Minutes 2x10 Comments cued good posture shoulder IR Standing Exercise Name Shoulder IR stretch with towel f/b active assisted reaching up back. Side right Reps/Minutes 2x Comments cued ed, R arm behind low back then pull gently with LUE Manual Therapy Treatment Joint Mobilizations 1-5 MCP Joint R Direction gentle glide AP, PA, rotation Grade I Body Position seated Comments manual and instruction on self base of 1st MCP- good feedback response. extra time spent positioning and performance. Self-Care/Home Management Treatment Education Patient Education Home Exercise Program,Joint Protection,Pain Management Other Education Ed for neutral wrist R>L during therex, not to hard gripping with putty and posture improved tolerance to HEP. Provided HO for rubberband finger extension forgot last tx. Pt does well with HOs. PT-OP-T Assessment and Plan Start: 11/27/21 18:37 Freq: Status: Active Protocol: Document 12/30/21 14:34 SP (Rec: 12/30/21 15:21 SP [id number]) Physical Therapy Assessment Goals Three Impairment Decreased R shoulder mobility Short Term Goal (STG) Improve R shoulder mobility to be able to put coat or clothes on with minimal pain. : pt report alot better, very little pain put on coat RUE 2nd this tx, understands try use RUE more. 12/30/21: very little discomfort RUE last in coat. STG Duration 01/18/22 (12/30/21: Improving ) Print Shop Assistant Goal (LTG) Move R arm normal (90% of normal) to close car door with minimal pain. 12/25/21: stated hasn't been using RUE as much but will try . 12/30/21: stated bicep and UT little sore after ex but better able to do more. LTG Duration 03/02/22 12/30/21: progressing Two Impairment Decreased R shoulder strength Short Term Goal (STG) Gain strength in R shoulder to return to piano play. 12/25/21: pt stated only played piano x1 and hard due to lack of hand strength, will play before next tx for feedback. 12/30/21: stated little decreased dexterity but able to do some. STG Duration 01/18/22 (progressing 12/30/21) Print Shop Assistant Goal (LTG) Gain strength in R arm to open bottles or jars. 12/25/21: She stated has been asking to do using her tool. Will try herself before next tx. 12/30/21: Unable to open jars but ableto waterbottle, little discomfort. LTG Duration 03/02/22 (12/30/21 progressing) One Impairment HEP Short Term Goal (STG) Pt able to demonstrate ability to use clippers for pruning or gardening. 12/25/21: did some gardening digging/ weed pulling pretty good. Will use her scissors for pruning before next tx for feedback. 12/30/21: didnt use clippers but did some gardening has pain in R wrist. STG Duration 01/18/22 progressing 12/30/21 Retirement Goal (LTG) Independent with HEP of scapular stab, shoulder, elbow ROM and strengthening ex's. 12/25 21: added to HEP: D1 ext and D2 extension for strengthening to close car door, 1st MCP flexion putty, 12/30/21: reviewed finger extension w/ rubber band. . LTG Duration 03/02/22 progressing Assessment Summary Assessment Pt improved with wrist neutral correction positioning during theraputty and shld TB HEP reviewing with occasional cuing to allow less stress on wrist with good feedback feels better along with awareness of not gripping hard. Provided HO for resisted finger extension added last tx. No pain throughout tx. Pt making gains overall with goals and trying do more with R wrist with better awareness not over do it, add CP or MHP if needed for comfort after activity. MECHANICAL PRODUCT ENGINEER educated pt if R wrist continues give pain/ issues even with corrections can call physican for further assessment, xray? She verbalized understanding. Physical Therapy Plan Frequency and Duration Frequency of Treatment 2x/Week Plan of Care Start Date 12/02/21 Plan of Care End Date 03/02/22 Therapeutic Interventions Therapeutic Interventions Home Exercise Program,Joint Mobilizations,Manual Therapy, Neuromuscular Re-education, Patient/Caregiver Education, Self-Care/Home Management,Soft Tissue Mobilization,Taping, Therapeutic Exercises Modalities Cold Pack/Ice Massage,Electric Stimulation,Hot Packs, Iontophoresis,Ultrasound Next Visit Focus/Plan Next Note Type Treatment Note Next Visit Plan Continue check goals for progress in using R UE more and response. Recheck finger ext. POC: R shldr isometrics, isotonic, ecc strengthening including horiz AB/AD for preparing to do pruning and closing car door; HEP: Strengthening of elbow, wrist. Check labrum. POC: Posterior R GHJ capsule stretch, pec stretch, L UT stretch, add sidelie R shldr ER AROM strengthening. R shoulder/scapula AROM HEP and progression of RC strengthening w/HEP. Manual STM R Deltoid as needed , Modalities of CP, MH/EStim as needed. (note pt is L handed) dominant ).
--- NOTE | 2022-01-01 17:29 | PT.OTN ---
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 Has . Pt is L handed. PT-OP-B Current Condition Start: 11/27/21 18:37 Freq: Status: Active Protocol: Document 12/02/21 13:50 LRN (Rec: 12/02/21 14:35 LRN [id number]) Current Condition History of Current Condition Onset Date October 28, 2021 Current Complaints Pain in R lateral shoulder and aches in the distal arm with weakness. History of Current Condition Tripped on breadspread and flew across the room landing on R arm with arms reaching to the floor. R hand tingles and the R hand/arm feels weak. Pt is L handed. Prior Treatments and Tests Increased Motrin from 800 mg/ day to 1200 mg/day. Previously taking Motrin after rebuilding tib/fib plateau in 1990 and also due to arthritis everywhere. X-ray - recent one shows no fracture. Cat scan - showed no fractures Treatment Goals Patient/Caregiver Goals Gain strength back in R arm Move R arm normal. Prior Functional Status Baseline Function- ADL's Independent Baseline Function- Mobility Independent Baseline Function- Recreation/Hobbies Gardening, canoe's in summer, and playing piano. Current Functional Impairments (Reported) Functional Limitations- ADL's Hold on playing the piano and canoe. Can't close doors (including cars), doing back of hair, getting dressed. 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 PT-OP-C Subjective Start: 11/27/21 18:37 Freq: Status: Active Protocol: Document 01/01/22 14:35 LRN (Rec: 01/01/22 15:20 LRN [id number]) OP-PT Subjective Patient Comments Patient Comments States she tripped going up stairs and scraped the R lateral proximal forearm. Has minimal pain with dressing. C/O pain in R Biceps and radial side of wrist with activities that require more strength. States originally the gripping ex's caused R wrist pain, but last time shown how to do without causing so much pain. Can do ex's if does them gingerly. PT-OP-H Neuro Start: 11/27/21 18:37 Freq: Status: Active Protocol: Document 12/09/21 10:31 LRN (Rec: 12/09/21 16:52 LRN [id number]) Deep Tendon Reflex & Clonus Assessment Deep Tendon Reflex Bilateral Brachioradialis Deep Tendon Reflex 2+ Normal Bilateral Tricep Deep Tendon Reflex 2+ Normal Bilateral Bicep Deep Tendon Reflex 2+ Normal PT-OP-J Posture/Palpation/Skin Start: 11/27/21 18:37 Freq: Status: Active Protocol: Document 12/02/21 13:50 LRN (Rec: 12/02/21 14:35 LRN [id number]) Posture Evaluation Position Standing Head/C-Spine Posture Forward Head T-Spine Posture Increased Kyphosis L-Spine Posture Decreased Lordosis Shoulder Posture (L) Elevated Scapula Posture (R) Depressed Arm Posture (L) Internally Rotated,(R) Internally Rotated Pelvis Posture Posterior Tilted Knee Posture (R) Genu Varus,(L) Genu Valgus Palpation Assessment Location R shoulder Palpation Location Tender at R Deltoid insertion Palpation Findings Tenderness PT-OP-K Range of Motion Start: 11/27/21 18:37 Freq: Status: Active Protocol: Document 12/19/21 13:03 LRN (Rec: 12/19/21 13:49 LRN [id number]) Shoulder Goniometric Range of Motion Shoulder Right Passive Shoulder ROM WFL No Testing Position Supine Flexion 168 External Rotation at 90 degrees 58 Abduction Internal Rotation 72 Left Passive Shoulder ROM WFL Yes Testing Position Supine Flexion 173 External Rotation at 90 degrees 90 Abduction Internal Rotation 90 Right Active Shoulder ROM WFL No Testing Position Sitting Flexion 152 Extension 55 Abduction 155 External Rotation at 0 degrees Abduction 69 Internal Rotation Behind Back (text) T6 Comments Overhead behind the back: T1 Left Active Shoulder ROM WFL Yes Flexion 152 Extension 52 Abduction 161 External Rotation at 0 degrees Abduction 65 Internal Rotation Behind Back (text) T8 Comments Overhead behind the back: T2 PT-OP-L Special Tests Start: 11/27/21 18:37 Freq: Status: Active Protocol: Document 12/02/21 13:50 LRN (Rec: 12/02/21 16:46 LRN [id number]) Special Tests Shoulder Special Tests Elevation Impingement Test Results R shoulder: Positive Comments Pain, indicating possible RC injury. IR/Horizontal ADD Impingement Test Results R shoulder: Positive Comments Pain, indicating possible RC injury. Drop Arm Rotator Cuff Test Results R shoulder: Positive Comments Pt demonstrated lack of arm control with lowering of R arm when in max tolerated AB, indicating possible RC injury. Belly Press Test Results R shoulder: negative Comments Negative for IR dysfunction PT-OP-M Strength Start: 11/27/21 18:37 Freq: Status: Active Protocol: Document 12/23/21 15:18 LRN (Rec: 12/23/21 16:19 LRN [id number]) Hand Order Analyst/Pinch Strength Hand Dominance Hand Dominance Left Hand Strength Right Comments Order Analyst strength in k, 14, 12 (avg is 13.3) Left Comments Order Analyst strength in k, 14, 14 (avg is 15) PT-OP-Q Treatments Start: 11/27/21 18:37 Freq: Status: Active Protocol: Document 01/01/22 14:35 LRN (Rec: 01/01/22 15:20 LRN [id number]) Therapeutic Exercises Sitting Exercises Wrist pronation Sitting Exercise Name Wrist pronation Side right Equipment Used Lev 1 TB with very minimal resistance Reps/Minutes 10x3 Wrist supination Sitting Exercise Name Wrist supination Side right Equipment Used Lev 1 TB with very minimal resistance Reps/Minutes 10x 3 Wrist flexor stretch Sitting Exercise Name Wrist flexor stretch Side right Reps/Minutes 2' Wrist RD Sitting Exercise Name ARROM RD Side right Reps/Minutes 10x 3 Wrist UD Sitting Exercise Name ARROM UD Side right Reps/Minutes 10x 3 Wrist flex Sitting Exercise Name Active wrist flex Side bilateral Reps/Minutes 30x Wrist ext Sitting Exercise Name Active Wrist ext/fingers extended Side bilateral Reps/Minutes 30x Self-Care/Home Management Treatment Education Patient Education Home Exercise Program Activities Self-Care/Home Management Activities Issued & reviewed HEP of wrist strengthening TBand exercises (flex, ext, UD, RD, Sup, Pron ) PT-OP-T Assessment and Plan Start: 11/27/21 18:37 Freq: Status: Active Protocol: Document 01/01/22 14:35 LRN (Rec: 01/01/22 15:20 LRN [id number]) Physical Therapy Assessment Rehab Potential Rehabilitation Potential Good Evaluation Complexity Number of Personal Factors/Comorbidities 1-2 Number of Body Systems Impaired 3 Clinical Presentation at Evaluation Evolving Impairments Impairments Activity Tolerance,Pain, Strength Goals Three Impairment Decreased R shoulder mobility Short Term Goal (STG) Improve R shoulder mobility to be able to put coat or clothes on with minimal pain. : pt report alot better, very little pain put on coat RUE 2nd this tx, understands try use RUE more. 12/30/21: very little discomfort RUE last in coat. STG Duration 01/18/22 (01/01/22: MET GOAL) Mcfp Goal (LTG) Move R arm normal (90% of normal) to close car door with minimal pain. 12/25/21: stated hasn't been using RUE as much but will try . 12/30/21: stated bicep and UT little sore after ex but better able to do more. 01/01/22: Able to shut car door with minimal pain. LTG Duration 03/02/22 (01/01/22: MET GOAL ) Two Impairment Decreased R shoulder strength Short Term Goal (STG) Gain strength in R shoulder to return to piano play. 12/25/21: pt stated only played piano x1 and hard due to lack of hand strength, will play before next tx for feedback. 12/30/21: stated little decreased dexterity but able to do some. 01/01/22: States she can play piano but aches across dorsal side of R hand and at R radial wrist and thumb. STG Duration 01/18/22 (progressing 12/30/21) Student Goal (LTG) Gain strength in R arm to open bottles or jars. 12/25/21: She stated has been asking to do using her tool. Will try herself before next tx. 12/30/21: Unable to open jars but ableto waterbottle, little discomfort. 01/01/22: Able to open bottles and couldn't open jars before being hurt; therefore pt satisfied with her current condition). LTG Duration 03/02/22 (01/01/22: MET GOAL) One Impairment HEP Short Term Goal (STG) Pt able to demonstrate ability to use clippers for pruning or gardening. 12/25/21: did some gardening digging/ weed pulling pretty good. Will use her scissors for pruning before next tx for feedback. 01/01/22: Can use scissor and feels she won't have a problem with using pruning shear. 12/30/21: didnt use clippers but did some gardening has pain in R wrist. STG Duration 01/18/22 (progressing ) Mcfp Goal (LTG) Independent with HEP of scapular stab, shoulder, elbow ROM and strengthening ex's. 12/25 21: added to HEP: D1 ext and D2 extension for strengthening to close car door, 1st MCP flexion putty, 12/30/21: reviewed finger extension w/ rubber band. . LTG Duration 03/02/22 (progressing ) Assessment Summary Assessment No pain with TBand wrist ex's when tension on band reduced. R hand: Radhames Test and CMC compression is negative; therefore no signs or symptoms of R thumb involvement. Tender at Scaphoid-Lunate joint R wrist. Possible Instability at wrist. Manual C. tx in sitting mildly decreases R thumb/wrist pain. Today her complaint is more of R biceps pain vs more R lateral deltoid pain; possibly neural related, but currently no pain is present. Pt is progressing and would benefit from continuation of skilled physical therapy to work towards achieving all above stated goals. Physical Therapy Plan Frequency and Duration Frequency of Treatment 2x/Week Plan of Care Start Date 12/02/21 Plan of Care End Date 03/02/22 Therapeutic Interventions Therapeutic Interventions Home Exercise Program,Joint Mobilizations,Manual Therapy, Neuromuscular Re-education, Patient/Caregiver Education, Self-Care/Home Management,Soft Tissue Mobilization,Taping, Therapeutic Exercises Modalities Cold Pack/Ice Massage,Electric Stimulation,Hot Packs, Iontophoresis,Ultrasound Next Visit Focus/Plan Next Note Type Treatment Note Next Visit Plan Assess for R Biceps pain vs, lateral Deltoid. Check labrum. Continue check goals for progress in using R UE ( driving, use of clippers, piano play). Recheck finger ext. POC: R shldr isometrics, isotonic, ecc strengthening including horiz AB/AD for preparing to do pruning and closing car door; Review HEP: Strengthening of wrist, add elbow strengthening . POC: Posterior R GHJ capsule stretch, pec stretch, L UT stretch, add sidelie R shldr ER AROM strengthening. R shoulder/scapula AROM HEP and progression of RC strengthening w/HEP. Modalities of CP, MH/EStim as needed. (note pt is L handed) dominant ).
--- NOTE | 2022-01-06 15:17 | PT.OTN ---
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 Has . Pt is L handed. PT-OP-B Current Condition Start: 11/27/21 18:37 Freq: Status: Active Protocol: Document 12/02/21 13:50 LRN (Rec: 12/02/21 14:35 LRN [id number]) Current Condition History of Current Condition Onset Date October 28, 2021 Current Complaints Pain in R lateral shoulder and aches in the distal arm with weakness. History of Current Condition Tripped on breadspread and flew across the room landing on R arm with arms reaching to the floor. R hand tingles and the R hand/arm feels weak. Pt is L handed. Prior Treatments and Tests Increased Motrin from 800 mg/ day to 1200 mg/day. Previously taking Motrin after rebuilding tib/fib plateau in 1990 and also due to arthritis everywhere. X-ray - recent one shows no fracture. Cat scan - showed no fractures Treatment Goals Patient/Caregiver Goals Gain strength back in R arm Move R arm normal. Prior Functional Status Baseline Function- ADL's Independent Baseline Function- Mobility Independent Baseline Function- Recreation/Hobbies Gardening, canoe's in summer, and playing piano. Current Functional Impairments (Reported) Functional Limitations- ADL's Hold on playing the piano and canoe. Can't close doors (including cars), doing back of hair, getting dressed. 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 PT-OP-C Subjective Start: 11/27/21 18:37 Freq: Status: Active Protocol: Document 01/06/22 14:32 SP (Rec: 01/06/22 15:41 SP [id number]) OP-PT Subjective Patient Comments Patient Comments Pt stated wants to review band wrist exercises today got last tx, not sure doing well, forgot how set up when got home. Can open jars better, load stiff straw hat washer but not put away dishes away over head. PT-OP-H Neuro Start: 11/27/21 18:37 Freq: Status: Active Protocol: Document 12/09/21 10:31 LRN (Rec: 12/09/21 16:52 LRN [id number]) Deep Tendon Reflex & Clonus Assessment Deep Tendon Reflex Bilateral Brachioradialis Deep Tendon Reflex 2+ Normal Bilateral Tricep Deep Tendon Reflex 2+ Normal Bilateral Bicep Deep Tendon Reflex 2+ Normal PT-OP-J Posture/Palpation/Skin Start: 11/27/21 18:37 Freq: Status: Active Protocol: Document 12/02/21 13:50 LRN (Rec: 12/02/21 14:35 LRN [id number]) Posture Evaluation Position Standing Head/C-Spine Posture Forward Head T-Spine Posture Increased Kyphosis L-Spine Posture Decreased Lordosis Shoulder Posture (L) Elevated Scapula Posture (R) Depressed Arm Posture (L) Internally Rotated,(R) Internally Rotated Pelvis Posture Posterior Tilted Knee Posture (R) Genu Varus,(L) Genu Valgus Palpation Assessment Location R shoulder Palpation Location Tender at R Deltoid insertion Palpation Findings Tenderness PT-OP-K Range of Motion Start: 11/27/21 18:37 Freq: Status: Active Protocol: Document 12/19/21 13:03 LRN (Rec: 12/19/21 13:49 LRN [id number]) Shoulder Goniometric Range of Motion Shoulder Right Passive Shoulder ROM WFL No Testing Position Supine Flexion 168 External Rotation at 90 degrees 58 Abduction Internal Rotation 72 Left Passive Shoulder ROM WFL Yes Testing Position Supine Flexion 173 External Rotation at 90 degrees 90 Abduction Internal Rotation 90 Right Active Shoulder ROM WFL No Testing Position Sitting Flexion 152 Extension 55 Abduction 155 External Rotation at 0 degrees Abduction 69 Internal Rotation Behind Back (text) T6 Comments Overhead behind the back: T1 Left Active Shoulder ROM WFL Yes Flexion 152 Extension 52 Abduction 161 External Rotation at 0 degrees Abduction 65 Internal Rotation Behind Back (text) T8 Comments Overhead behind the back: T2 PT-OP-L Special Tests Start: 11/27/21 18:37 Freq: Status: Active Protocol: Document 12/02/21 13:50 LRN (Rec: 12/02/21 16:46 LRN [id number]) Special Tests Shoulder Special Tests Elevation Impingement Test Results R shoulder: Positive Comments Pain, indicating possible RC injury. IR/Horizontal ADD Impingement Test Results R shoulder: Positive Comments Pain, indicating possible RC injury. Drop Arm Rotator Cuff Test Results R shoulder: Positive Comments Pt demonstrated lack of arm control with lowering of R arm when in max tolerated AB, indicating possible RC injury. Belly Press Test Results R shoulder: negative Comments Negative for IR dysfunction PT-OP-M Strength Start: 11/27/21 18:37 Freq: Status: Active Protocol: Document 12/23/21 15:18 LRN (Rec: 12/23/21 16:19 LRN [id number]) Hand Tufter/Pinch Strength Hand Dominance Hand Dominance Left Hand Strength Right Comments Tufter strength in k, 14, 12 (avg is 13.3) Left Comments Tufter strength in k, 14, 14 (avg is 15) PT-OP-Q Treatments Start: 11/27/21 18:37 Freq: Status: Active Protocol: Document 01/06/22 14:32 SP (Rec: 01/06/22 15:41 SP [id number]) Therapeutic Exercises Sitting Exercises Wrist pronation Sitting Exercise Name Wrist pronation- revewed HEP Side right Equipment Used Lev 1 TB Reps/Minutes 2x10 Comments ed for set up and better performance Wrist supination Sitting Exercise Name Wrist supination- reviewed HEP Side right Equipment Used Lev 1 TB Reps/Minutes 2x10 Comments ed for set up and better performance Wrist flexor stretch Sitting Exercise Name Wrist flexor stretch-reviewed HEP Side right Reps/Minutes 5 sec hold x5 Comments good form post ed seated Wrist RD Sitting Exercise Name reviewed HEP Side right Resistance Tb #1 Reps/Minutes 2x10 Comments improved post ed set up and directioning- neutral wrist! Wrist UD Sitting Exercise Name reviewed HEP Side right Resistance Tb #1 Reps/Minutes 2x10 Comments improved post ed set up and directioning Wrist flex Sitting Exercise Name reviewed HEP Side bilateral Resistance TB #1 Reps/Minutes 2x10 Comments improved post ed set up and directioning Wrist ext Sitting Exercise Name reviewed HEP Side bilateral Resistance Tb #1 Reps/Minutes 2x10 Comments ed form set up, improved Finger Ext Sitting Exercise Name Finger extensions 1-4 MCP individual Side right Resistance rubber band, other hand other fingers down Reps/Minutes x10 reps each finger Comments cued stabilize other surrounding fingers Standing Exercises self STMs Standing Exercise Name added to HEP- UT/ distal tendomuscular supraspinatus Side right Equipment Used ball wall and theracane (vs dolphin massager has home) Reps/Minutes 5min Comments good feedback response MWM Self-Care/Home Management Treatment Education Patient Education Body Mechanics,Home Exercise Program,Joint Protection, Posture Other Education Wrist HEP review, also discussed tall posture/ shld over elbow/not hunching forward thus not recruiting bicep and A/P R shld- painfree today. Also cued neutral wrist with RD for no pain over 1st MCP. Added self STMs to UT/ distal tendomuscular supraspinatus. PT-OP-T Assessment and Plan Start: 11/27/21 18:37 Freq: Status: Active Protocol: Document 01/06/22 14:32 SP (Rec: 01/06/22 15:41 SP [id number]) Physical Therapy Assessment Goals Two Impairment Decreased R shoulder strength Short Term Goal (STG) Gain strength in R shoulder to return to piano play. 12/25/21: pt stated only played piano x1 and hard due to lack of hand strength, will play before next tx for feedback. 12/30/21: stated little decreased dexterity but able to do some. 01/01/22: States she can play piano but aches across dorsal side of R hand and at R radial wrist and thumb. STG Duration 01/18/22 (progressing 12/30/21) Airplane Electrician Goal (LTG) Gain strength in R arm to open bottles or jars. 12/25/21: She stated has been asking to do using her tool. Will try herself before next tx. 12/30/21: Unable to open jars but ableto waterbottle, little discomfort. 01/01/22: Able to open bottles and couldn't open jars before being hurt; therefore pt satisfied with her current condition). LTG Duration 03/02/22 (01/01/22: MET GOAL) One Impairment HEP Short Term Goal (STG) Pt able to demonstrate ability to use clippers for pruning or gardening. 12/25/21: did some gardening digging/ weed pulling pretty good. Will use her scissors for pruning before next tx for feedback. 01/01/22: Can use scissor and feels she won't have a problem with using pruning shear. 12/30/21: didnt use clippers but did some gardening has pain in R wrist. STG Duration 01/18/22 (progressing ) Airplane Electrician Goal (LTG) Independent with HEP of scapular stab, shoulder, elbow ROM and strengthening ex's. 12/25 21: added to HEP: D1 ext and D2 extension for strengthening to close car door, 1st MCP flexion putty, 12/30/21: reviewed finger extension w/ rubber band. 01/06/22: reviewed wrist TB HEP and added self STMs to R suprascap ball wall/ theracane . LTG Duration 03/02/22 (progressing ) Assessment Summary Assessment Pt improved understanding wrist TB HEP, cues for shld/ elbow/wrist alignment for success and painfree. Added self STMs to R suprascap and ed for postural awareness during HEP. Pt stated feels more confident with HEP today before leaving. Physical Therapy Plan Frequency and Duration Frequency of Treatment 2x/Week Plan of Care Start Date 12/02/21 Plan of Care End Date 03/02/22 Therapeutic Interventions Therapeutic Interventions Home Exercise Program,Joint Mobilizations,Manual Therapy, Neuromuscular Re-education, Patient/Caregiver Education, Self-Care/Home Management,Soft Tissue Mobilization,Taping, Therapeutic Exercises Modalities Cold Pack/Ice Massage,Electric Stimulation,Hot Packs, Iontophoresis,Ultrasound Next Visit Focus/Plan Next Note Type Treatment Note Next Visit Plan Assess distal supraspinatus tendonomuscular discomfort and self STMs help. Check labrum. Next or future tx: add bicep curls and reaching OH ther ex to allow putting dishes away unable to do; GH posterior capsule (cross body), UT, Lev scap, pec stretch. Continue check goals for progress in using R UE ( driving, use of clippers, piano play). POC: R shldr isometrics, isotonic, ecc strengthening including horiz AB/AD for preparing to do pruning and closing car door; POC: add sidelie R shldr ER AROM strengthening. R shoulder/scapula AROM HEP and progression of RC strengthening w/HEP. Modalities of CP, MH/EStim as needed. (note pt is L handed) dominant ).
--- NOTE | 2022-01-08 12:39 | PT.OTN ---
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 Has . Pt is L handed. PT-OP-B Current Condition Start: 11/27/21 18:37 Freq: Status: Active Protocol: Document 12/02/21 13:50 LRN (Rec: 12/02/21 14:35 LRN [id number]) Current Condition History of Current Condition Onset Date October 28, 2021 Current Complaints Pain in R lateral shoulder and aches in the distal arm with weakness. History of Current Condition Tripped on breadspread and flew across the room landing on R arm with arms reaching to the floor. R hand tingles and the R hand/arm feels weak. Pt is L handed. Prior Treatments and Tests Increased Motrin from 800 mg/ day to 1200 mg/day. Previously taking Motrin after rebuilding tib/fib plateau in 1990 and also due to arthritis everywhere. X-ray - recent one shows no fracture. Cat scan - showed no fractures Treatment Goals Patient/Caregiver Goals Gain strength back in R arm Move R arm normal. Prior Functional Status Baseline Function- ADL's Independent Baseline Function- Mobility Independent Baseline Function- Recreation/Hobbies Gardening, canoe's in summer, and playing piano. Current Functional Impairments (Reported) Functional Limitations- ADL's Hold on playing the piano and canoe. Can't close doors (including cars), doing back of hair, getting dressed. 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 PT-OP-C Subjective Start: 11/27/21 18:37 Freq: Status: Active Protocol: Document 01/08/22 11:22 LRN (Rec: 01/08/22 12:29 LRN [id number]) OP-PT Subjective Patient Comments Patient Comments Going away for a couple of days. Next appt is the . Did less tension on hand ex's and seems to help keep hand from swelling. Now has aches in R shoulder. R wrist is tender and has been avoiding hurting it. Using clippers and they hurt the hands but has the strength to use it. Doing okay with playing the piano and with driving. PT-OP-H Neuro Start: 11/27/21 18:37 Freq: Status: Active Protocol: Document 12/09/21 10:31 LRN (Rec: 12/09/21 16:52 LRN [id number]) Deep Tendon Reflex & Clonus Assessment Deep Tendon Reflex Bilateral Brachioradialis Deep Tendon Reflex 2+ Normal Bilateral Tricep Deep Tendon Reflex 2+ Normal Bilateral Bicep Deep Tendon Reflex 2+ Normal PT-OP-J Posture/Palpation/Skin Start: 11/27/21 18:37 Freq: Status: Active Protocol: Document 12/02/21 13:50 LRN (Rec: 12/02/21 14:35 LRN [id number]) Posture Evaluation Position Standing Head/C-Spine Posture Forward Head T-Spine Posture Increased Kyphosis L-Spine Posture Decreased Lordosis Shoulder Posture (L) Elevated Scapula Posture (R) Depressed Arm Posture (L) Internally Rotated,(R) Internally Rotated Pelvis Posture Posterior Tilted Knee Posture (R) Genu Varus,(L) Genu Valgus Palpation Assessment Location R shoulder Palpation Location Tender at R Deltoid insertion Palpation Findings Tenderness PT-OP-K Range of Motion Start: 11/27/21 18:37 Freq: Status: Active Protocol: Document 12/19/21 13:03 LRN (Rec: 12/19/21 13:49 LRN [id number]) Shoulder Goniometric Range of Motion Shoulder Right Passive Shoulder ROM WFL No Testing Position Supine Flexion 168 External Rotation at 90 degrees 58 Abduction Internal Rotation 72 Left Passive Shoulder ROM WFL Yes Testing Position Supine Flexion 173 External Rotation at 90 degrees 90 Abduction Internal Rotation 90 Right Active Shoulder ROM WFL No Testing Position Sitting Flexion 152 Extension 55 Abduction 155 External Rotation at 0 degrees Abduction 69 Internal Rotation Behind Back (text) T6 Comments Overhead behind the back: T1 Left Active Shoulder ROM WFL Yes Flexion 152 Extension 52 Abduction 161 External Rotation at 0 degrees Abduction 65 Internal Rotation Behind Back (text) T8 Comments Overhead behind the back: T2 PT-OP-L Special Tests Start: 11/27/21 18:37 Freq: Status: Active Protocol: Document 01/08/22 11:22 LRN (Rec: 01/08/22 12:29 LRN [id number]) Special Tests Shoulder Special Tests Clunk Test Test Results R shoulder - negative PT-OP-M Strength Start: 11/27/21 18:37 Freq: Status: Active Protocol: Document 12/23/21 15:18 LRN (Rec: 12/23/21 16:19 LRN [id number]) Hand Analysis Or Research Safety Inspector/Pinch Strength Hand Dominance Hand Dominance Left Hand Strength Right Comments Analysis Or Research Safety Inspector strength in k, 14, 12 (avg is 13.3) Left Comments Analysis Or Research Safety Inspector strength in k, 14, 14 (avg is 15) PT-OP-Q Treatments Start: 11/27/21 18:37 Freq: Status: Active Protocol: Document 01/08/22 11:22 LRN (Rec: 01/08/22 12:29 LRN [id number]) Therapeutic Exercises Supine Exercises FF Supine Exercise Name R Shoulder flex stretch Side right Resistance AROM Equipment Used Cane Reps/Minutes 20-30 H x 8 Comments Cued for scapular retraction/ depression R shoulder ER stretch Supine Exercise Name R shoulder ER stretch @ 90 deg 's shdr AB. Side right Equipment Used Cane Reps/Minutes 20-30 H x 5 Comments cued 45 shldr AB Standing Exercises Shoulder ADD (car door slam) Standing Exercise Name Shoulder AD: Closing car door Side right Equipment Used Lev 1 TB Reps/Minutes 10x 2 shld ER Standing Exercise Name Shoulder ER Side bilateral Resistance Tb #1- hands in loop at end then wrap other end around LUE Equipment Used Towel under R elbow Reps/Minutes 15x 2 Comments good form reviewed. D2 extension Standing Exercise Name reviewed HEP Side right Reps/Minutes 2x10 Comments cued good posture- progress closing car door motion D1 ext Standing Exercise Name reviewed HEP Side right Reps/Minutes 2x10 Comments cued good posture Scapular pinches' Standing Exercise Name Scapular pinch with depression on the L side Side right Reps/Minutes 10H x 10 shoulder IR Standing Exercise Name Shoulder IR strengthening Side right Reps/Minutes 15x PT-OP-T Assessment and Plan Start: 11/27/21 18:37 Freq: Status: Active Protocol: Document 01/08/22 11:22 LRN (Rec: 01/08/22 12:29 LRN [id number]) Physical Therapy Assessment Goals Two Impairment Decreased R shoulder strength Short Term Goal (STG) Gain strength in R shoulder to return to piano play. 12/25/21: pt stated only played piano x1 and hard due to lack of hand strength, will play before next tx for feedback. 12/30/21: stated little decreased dexterity but able to do some. 01/01/22: States she can play piano but aches across dorsal side of R hand and at R radial wrist and thumb. STG Duration 01/18/22 (01/08/22: MET GOAL) Half-Way Goal (LTG) Gain strength in R arm to open bottles or jars. 12/25/21: She stated has been asking to do using her tool. Will try herself before next tx. 12/30/21: Unable to open jars but ableto waterbottle, little discomfort. 01/01/22: Able to open bottles and couldn't open jars before being hurt; therefore pt satisfied with her current condition). LTG Duration 03/02/22 (01/01/22: MET GOAL) One Impairment HEP Short Term Goal (STG) Pt able to demonstrate ability to use clippers for pruning or gardening. 12/25/21: did some gardening digging/ weed pulling pretty good. Will use her scissors for pruning before next tx for feedback. 01/01/22: Can use scissor and feels she won't have a problem with using pruning shear. 12/30/21: didnt use clippers but did some gardening has pain in R wrist. 01/08/22: Can use clippers, but her R hand/wrist hurts, so she uses garden scissors). STG Duration 01/18/22 (01/08/22: Progressing) Half-Way Goal (LTG) Independent with HEP of scapular stab, shoulder, elbow ROM and strengthening ex's. 12/25 21: added to HEP: D1 ext and D2 extension for strengthening to close car door, 1st MCP flexion putty, 12/30/21: reviewed finger extension w/ rubber band. 01/06/22: reviewed wrist TB HEP and added self STMs to R suprascap ball wall/ theracane . LTG Duration 03/02/22 (progressing ) Assessment Summary Assessment Decreased R distal supraspinatus tendonomuscular discomfort with tightness L>R today; therefore self STMs has been helpful. Probably no labral involvement per negative Clunk Test. Pt progressing well. She has decreased R shoulder ER mobility and general strength deficit with poor core awareness. Physical Therapy Plan Frequency and Duration Frequency of Treatment 2x/Week Plan of Care Start Date 12/02/21 Plan of Care End Date 03/02/22 Next Visit Focus/Plan Next Note Type Treatment Note Next Visit Plan Plan to complete HEP and DC in 2 visits. Recheck shoulder AD (door closing mvmt) exercise. Future tx: HEP: add bicep curls and reaching OH ther ex to allow putting dishes away unable to do; GH posterior capsule (cross body), UT, Lev scap, pec stretch. (note pt is L handed dominant) .
--- NOTE | 2022-01-12 14:04 | PT.OTN ---
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 Has . Pt is L handed. PT-OP-B Current Condition Start: 11/27/21 18:37 Freq: Status: Active Protocol: Document 12/02/21 13:50 LRN (Rec: 12/02/21 14:35 LRN [id number]) Current Condition History of Current Condition Onset Date October 28, 2021 Current Complaints Pain in R lateral shoulder and aches in the distal arm with weakness. History of Current Condition Tripped on breadspread and flew across the room landing on R arm with arms reaching to the floor. R hand tingles and the R hand/arm feels weak. Pt is L handed. Prior Treatments and Tests Increased Motrin from 800 mg/ day to 1200 mg/day. Previously taking Motrin after rebuilding tib/fib plateau in 1990 and also due to arthritis everywhere. X-ray - recent one shows no fracture. Cat scan - showed no fractures Treatment Goals Patient/Caregiver Goals Gain strength back in R arm Move R arm normal. Prior Functional Status Baseline Function- ADL's Independent Baseline Function- Mobility Independent Baseline Function- Recreation/Hobbies Gardening, canoe's in summer, and playing piano. Current Functional Impairments (Reported) Functional Limitations- ADL's Hold on playing the piano and canoe. Can't close doors (including cars), doing back of hair, getting dressed. 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 PT-OP-C Subjective Start: 11/27/21 18:37 Freq: Status: Active Protocol: Document 01/12/22 13:00 LRN (Rec: 01/12/22 13:57 LRN [id number]) OP-PT Subjective Patient Comments Patient Comments No pain with closing the car door, but does it gingerly. States she can reach up [place] to put dishes away but uses the L UE to help. States she is able to use clippers for gardening this past weekend. PT-OP-H Neuro Start: 11/27/21 18:37 Freq: Status: Active Protocol: Document 12/09/21 10:31 LRN (Rec: 12/09/21 16:52 LRN [id number]) Deep Tendon Reflex & Clonus Assessment Deep Tendon Reflex Bilateral Brachioradialis Deep Tendon Reflex 2+ Normal Bilateral Tricep Deep Tendon Reflex 2+ Normal Bilateral Bicep Deep Tendon Reflex 2+ Normal PT-OP-J Posture/Palpation/Skin Start: 11/27/21 18:37 Freq: Status: Active Protocol: Document 12/02/21 13:50 LRN (Rec: 12/02/21 14:35 LRN [id number]) Posture Evaluation Position Standing Head/C-Spine Posture Forward Head T-Spine Posture Increased Kyphosis L-Spine Posture Decreased Lordosis Shoulder Posture (L) Elevated Scapula Posture (R) Depressed Arm Posture (L) Internally Rotated,(R) Internally Rotated Pelvis Posture Posterior Tilted Knee Posture (R) Genu Varus,(L) Genu Valgus Palpation Assessment Location R shoulder Palpation Location Tender at R Deltoid insertion Palpation Findings Tenderness PT-OP-K Range of Motion Start: 11/27/21 18:37 Freq: Status: Active Protocol: Document 12/19/21 13:03 LRN (Rec: 12/19/21 13:49 LRN [id number]) Shoulder Goniometric Range of Motion Shoulder Right Passive Shoulder ROM WFL No Testing Position Supine Flexion 168 External Rotation at 90 degrees 58 Abduction Internal Rotation 72 Left Passive Shoulder ROM WFL Yes Testing Position Supine Flexion 173 External Rotation at 90 degrees 90 Abduction Internal Rotation 90 Right Active Shoulder ROM WFL No Testing Position Sitting Flexion 152 Extension 55 Abduction 155 External Rotation at 0 degrees Abduction 69 Internal Rotation Behind Back (text) T6 Comments Overhead behind the back: T1 Left Active Shoulder ROM WFL Yes Flexion 152 Extension 52 Abduction 161 External Rotation at 0 degrees Abduction 65 Internal Rotation Behind Back (text) T8 Comments Overhead behind the back: T2 PT-OP-L Special Tests Start: 11/27/21 18:37 Freq: Status: Active Protocol: Document 01/08/22 11:22 LRN (Rec: 01/08/22 12:29 LRN [id number]) Special Tests Shoulder Special Tests Clunk Test Test Results R shoulder - negative PT-OP-M Strength Start: 11/27/21 18:37 Freq: Status: Active Protocol: Document 12/23/21 15:18 LRN (Rec: 12/23/21 16:19 LRN [id number]) Hand Blindmaker/Pinch Strength Hand Dominance Hand Dominance Left Hand Strength Right Comments Blindmaker strength in k, 14, 12 (avg is 13.3) Left Comments Blindmaker strength in k, 14, 14 (avg is 15) PT-OP-Q Treatments Start: 11/27/21 18:37 Freq: Status: Active Protocol: Document 01/12/22 13:00 LRN (Rec: 01/12/22 13:57 LRN [id number]) Therapeutic Exercises Sitting Exercises Upper trap stretch Sitting Exercise Name Upper trap stretch Side bilateral Reps/Minutes 5' Comments Extra time for determining max tolerated stretch. Wrist pronation Sitting Exercise Name Wrist pronation- revewed HEP Side right Equipment Used Lev 1 TB Reps/Minutes 2x10 Comments ed for set up and better performance Wrist supination Sitting Exercise Name Wrist supination- reviewed HEP Side right Equipment Used Lev 1 TB Reps/Minutes 2x10 Comments ed for set up and better performance Standing Exercises Corner stretch Standing Exercise Name Pec stretch Side bilateral Reps/Minutes 3' Comments Training/cuing for HEP Shoulder ADD (car door slam) Standing Exercise Name Shoulder AD: Closing car door Side right Equipment Used Lev 1 TB Reps/Minutes 15x 2 shld ER Standing Exercise Name Shoulder ER Side bilateral Resistance Tb #1- hands in loop at end then wrap other end around LUE Equipment Used Towel under R elbow Reps/Minutes 15x 2 Comments Cuing for proper mvmt of hand away from body. D2 extension Standing Exercise Name reviewed HEP Side right Equipment Used Lev 1 TB Reps/Minutes 2x10 Comments cued good posture and for proper mvmt D1 ext Standing Exercise Name reviewed HEP Side right Equipment Used Lev 1 TB Reps/Minutes 2x10 Comments cued good posture and for proper mvmt Scapular pinches' Standing Exercise Name Scapular pinch with depression on the L side Side right Equipment Used Lev 1 TB Reps/Minutes 10H x 10 Comments Cuing to scapula for depression/retraction shoulder IR Standing Exercise Name Shoulder IR strengthening Side right Equipment Used Lev 1 TB Reps/Minutes 15x 2 Comments Cuing for proper mvmt across chest Self-Care/Home Management Treatment Education Patient Education Home Exercise Program Other Education Reviewed her existing HEP and discharged her R shoulder ROM ex's due to normal R shoulder mobility. Activities Self-Care/Home Management Activities Issued & reviewed HEP: UT stretch, Pec stretch & shoulder press with TB. PT-OP-T Assessment and Plan Start: 11/27/21 18:37 Freq: Status: Active Protocol: Document 01/12/22 13:00 LRN (Rec: 01/12/22 13:57 LRN [id number]) Physical Therapy Assessment Goals Three Impairment Decreased R shoulder mobility Short Term Goal (STG) Improve R shoulder mobility to be able to put coat or clothes on with minimal pain. : pt report alot better, very little pain put on coat RUE 2nd this tx, understands try use RUE more. 12/30/21: very little discomfort RUE last in coat. STG Duration 01/18/22 (01/01/22: MET GOAL) Fdc Goal (LTG) Move R arm normal (90% of normal) to close car door with minimal pain. 12/25/21: stated hasn't been using RUE as much but will try . 12/30/21: stated bicep and UT little sore after ex but better able to do more. 01/01/22: Able to shut car door with minimal pain. LTG Duration 03/02/22 (01/01/22: MET GOAL ) Two Impairment Decreased R shoulder strength Short Term Goal (STG) Gain strength in R shoulder to return to piano play. 12/25/21: pt stated only played piano x1 and hard due to lack of hand strength, will play before next tx for feedback. 12/30/21: stated little decreased dexterity but able to do some. 01/01/22: States she can play piano but aches across dorsal side of R hand and at R radial wrist and thumb. STG Duration 01/18/22 (01/08/22: MET GOAL) Asphalt Engineer Goal (LTG) Gain strength in R arm to open bottles or jars. 12/25/21: She stated has been asking to do using her tool. Will try herself before next tx. 12/30/21: Unable to open jars but ableto waterbottle, little discomfort. 01/01/22: Able to open bottles and couldn't open jars before being hurt; therefore pt satisfied with her current condition). LTG Duration 03/02/22 (01/01/22: MET GOAL) One Impairment HEP Short Term Goal (STG) Pt able to demonstrate ability to use clippers for pruning or gardening. 12/25/21: did some gardening digging/ weed pulling pretty good. Will use her scissors for pruning before next tx for feedback. 01/01/22: Can use scissor and feels she won't have a problem with using pruning shear. 12/30/21: didnt use clippers but did some gardening has pain in R wrist. 01/08/22: Can use clippers, but her R hand/wrist hurts, so she uses garden scissors). STG Duration 01/18/22 (01/12/22: MET GOAL) Asphalt Engineer Goal (LTG) Independent with HEP of scapular stab, shoulder, elbow ROM and strengthening ex's. 12/25 21: added to HEP: D1 ext and D2 extension for strengthening to close car door, 1st MCP flexion putty, 12/30/21: reviewed finger extension w/ rubber band. 01/06/22: reviewed wrist TB HEP and added self STMs to R suprascap ball wall/ theracane . (01/12/22: HEP: UT/Lev scap & pec stretch, shoulder press overhead TB strengthening). LTG Duration 03/02/22 (01/12/22: Completed HEP but review needed) Progress Towards Goals Progress Comments STG #1 MET. Pt able to use clippers for gardening. Assessment Summary Assessment Pt able to perform shoulder AD (door closing mvmt) exercise without R shoulder pain and pt reportedly able to reach overhead to put dishes away with assist for RUE. Pt needed review of HEP sup/pron x 2; therefore pt will probably need 1x review of today's issued HEP before DC. Physical Therapy Plan Frequency and Duration Frequency of Treatment 2x/Week Plan of Care Start Date 12/02/21 Plan of Care End Date 03/02/22 Next Visit Focus/Plan Next Note Type Discharge Summary Next Visit Plan Review newly issued HEP ( reaching [place] ther ex to allow putting dishes away UT, Lev scap, pec stretch) & DC next visit. Add bicep curls. (note pt is L handed dominant).
--- NOTE | 2022-01-23 16:28 | PT.OTN ---
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 Has . Pt is L handed. PT-OP-B Current Condition Start: 11/27/21 18:37 Freq: Status: Active Protocol: Document 12/02/21 13:50 LRN (Rec: 12/02/21 14:35 LRN [id number]) Current Condition History of Current Condition Onset Date October 28, 2021 Current Complaints Pain in R lateral shoulder and aches in the distal arm with weakness. History of Current Condition Tripped on breadspread and flew across the room landing on R arm with arms reaching to the floor. R hand tingles and the R hand/arm feels weak. Pt is L handed. Prior Treatments and Tests Increased Motrin from 800 mg/ day to 1200 mg/day. Previously taking Motrin after rebuilding tib/fib plateau in 1990 and also due to arthritis everywhere. X-ray - recent one shows no fracture. Cat scan - showed no fractures Treatment Goals Patient/Caregiver Goals Gain strength back in R arm Move R arm normal. Prior Functional Status Baseline Function- ADL's Independent Baseline Function- Mobility Independent Baseline Function- Recreation/Hobbies Gardening, canoe's in summer, and playing piano. Current Functional Impairments (Reported) Functional Limitations- ADL's Hold on playing the piano and canoe. Can't close doors (including cars), doing back of hair, getting dressed. 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 PT-OP-C Subjective Start: 11/27/21 18:37 Freq: Status: Active Protocol: Document 01/23/22 13:04 LRN (Rec: 01/23/22 13:51 LRN [id number]) OP-PT Subjective Patient Comments Patient Comments 90% better. If bumps R lateral arm, it feels like a bruise. No pain with closing of door motion. States she is able to reach overhead to put dishes away without difficulty. States when she does R shoulder flex end-range she feels a pop without pain. States her good shoulder. left, also pops. Patient Questionnaires Quick Dash- Upper Extremity Quick Dash UE Score 13.63 Quick Dash UE Impairment 1 to 19% Impaired (Score 1-19) PT-OP-H Neuro Start: 11/27/21 18:37 Freq: Status: Active Protocol: Document 12/09/21 10:31 LRN (Rec: 12/09/21 16:52 LRN [id number]) Deep Tendon Reflex & Clonus Assessment Deep Tendon Reflex Bilateral Brachioradialis Deep Tendon Reflex 2+ Normal Bilateral Tricep Deep Tendon Reflex 2+ Normal Bilateral Bicep Deep Tendon Reflex 2+ Normal PT-OP-J Posture/Palpation/Skin Start: 11/27/21 18:37 Freq: Status: Active Protocol: Document 12/02/21 13:50 LRN (Rec: 12/02/21 14:35 LRN [id number]) Posture Evaluation Position Standing Head/C-Spine Posture Forward Head T-Spine Posture Increased Kyphosis L-Spine Posture Decreased Lordosis Shoulder Posture (L) Elevated Scapula Posture (R) Depressed Arm Posture (L) Internally Rotated,(R) Internally Rotated Pelvis Posture Posterior Tilted Knee Posture (R) Genu Varus,(L) Genu Valgus Palpation Assessment Location R shoulder Palpation Location Tender at R Deltoid insertion Palpation Findings Tenderness PT-OP-K Range of Motion Start: 11/27/21 18:37 Freq: Status: Active Protocol: Document 12/19/21 13:03 LRN (Rec: 12/19/21 13:49 LRN [id number]) Shoulder Goniometric Range of Motion Shoulder Right Passive Shoulder ROM WFL No Testing Position Supine Flexion 168 External Rotation at 90 degrees 58 Abduction Internal Rotation 72 Left Passive Shoulder ROM WFL Yes Testing Position Supine Flexion 173 External Rotation at 90 degrees 90 Abduction Internal Rotation 90 Right Active Shoulder ROM WFL No Testing Position Sitting Flexion 152 Extension 55 Abduction 155 External Rotation at 0 degrees Abduction 69 Internal Rotation Behind Back (text) T6 Comments Overhead behind the back: T1 Left Active Shoulder ROM WFL Yes Flexion 152 Extension 52 Abduction 161 External Rotation at 0 degrees Abduction 65 Internal Rotation Behind Back (text) T8 Comments Overhead behind the back: T2 PT-OP-L Special Tests Start: 11/27/21 18:37 Freq: Status: Active Protocol: Document 01/08/22 11:22 LRN (Rec: 01/08/22 12:29 LRN [id number]) Special Tests Shoulder Special Tests Clunk Test Test Results R shoulder - negative PT-OP-M Strength Start: 11/27/21 18:37 Freq: Status: Active Protocol: Document 12/23/21 15:18 LRN (Rec: 12/23/21 16:19 LRN [id number]) Hand Neck Fitter/Pinch Strength Hand Dominance Hand Dominance Left Hand Strength Right Comments Neck Fitter strength in k, 14, 12 (avg is 13.3) Left Comments Neck Fitter strength in k, 14, 14 (avg is 15) PT-OP-Q Treatments Start: 11/27/21 18:37 Freq: Status: Active Protocol: Document 01/23/22 13:04 LRN (Rec: 01/23/22 13:51 LRN [id number]) Therapeutic Exercises Sitting Exercises Biceps Curl Sitting Exercise Name Biceps Curl Side right Equipment Used Lev 1 TBand Reps/Minutes 10x Comments Cuing for hand positioning of lifting arm & creating appropriate tension Tricep Ext Sitting Exercise Name Tricep Ext: Reaching Overhead Statue of [place]. Side right Reps/Minutes 10x 3 Comments Cuing to keep elbow at 90 deg' s shoulder flex for triceps ext. Upper trap stretch Sitting Exercise Name Upper trap stretch Side bilateral Reps/Minutes 3' Comments Extra time for determining max tolerated stretch. Wrist pronation Sitting Exercise Name Wrist pronation- revewed HEP Side right Equipment Used Lev 1 TB Reps/Minutes 10x Comments Cuing to allow stretch to band (not holding too close) Wrist supination Sitting Exercise Name Wrist supination- reviewed HEP Side right Equipment Used Lev 1 TB Reps/Minutes 10x Comments Cuing to allow stretch to band (not holding too close) Wrist RD Sitting Exercise Name reviewed HEP Side right Resistance Tb #1 Reps/Minutes 10x Comments Cuing to allow stretch to band (not holding too close) Wrist UD Sitting Exercise Name reviewed HEP Side right Resistance Tb #1 Reps/Minutes 10x Comments Cuing to allow stretch to band (not holding too close) Wrist flex Sitting Exercise Name reviewed HEP Side bilateral Resistance TB #1 Reps/Minutes 10x Comments Cuing to allow stretch to band (not holding too close) Wrist ext Sitting Exercise Name reviewed HEP Side bilateral Resistance Tb #1 Reps/Minutes 10x Comments Cuing to allow stretch to band (not holding too close) Standing Exercises Median N glide Standing Exercise Name Median n glide Side right Reps/Minutes 2' Comments Review for HEP, but determined pt did not need to do stretch on HEP. Corner stretch Standing Exercise Name Pec stretch Side bilateral Reps/Minutes 3' Comments Training/cuing for HEP Shoulder ADD (car door slam) Standing Exercise Name Shoulder AD: Closing car door Side right Equipment Used Lev 1 TB Reps/Minutes 15x 3 shld ER Standing Exercise Name Shoulder ER Side bilateral Resistance Tb #1- hands in loop at end then wrap other end around LUE Equipment Used Towel under R elbow Reps/Minutes 15x 3 Comments Cuing for proper mvmt of hand away from body. Scapular pinches' Standing Exercise Name Scapular pinch with depression on the L side Side right Equipment Used Lev 1 TB Reps/Minutes 15x 3, no holding Comments Cuing to scapula for depression/retraction shoulder IR Standing Exercise Name Shoulder IR strengthening Side right Equipment Used Lev 1 TB Reps/Minutes 15x 3 Comments Cuing for proper mvmt across chest Self-Care/Home Management Treatment Education Patient Education Home Exercise Program Activities Self-Care/Home Management Activities Issued & reviewed HEP: Biceps curl strengthening with Lev 1 TBand. Issued & reviewed HEP: TBAnd shoulder ER/IR strengthening. Modified to clarify HEP: UT stretch, TBand tricep press ( Statue of [place] positioning) , PT-OP-T Assessment and Plan Start: 11/27/21 18:37 Freq: Status: Active Protocol: Document 01/23/22 13:04 LRN (Rec: 01/23/22 13:51 LRN [id number]) Physical Therapy Assessment Goals Three Impairment Decreased R shoulder mobility Short Term Goal (STG) Improve R shoulder mobility to be able to put coat or clothes on with minimal pain. : pt report alot better, very little pain put on coat RUE 2nd this tx, understands try use RUE more. 12/30/21: very little discomfort RUE last in coat. STG Duration 01/18/22 (01/01/22: MET GOAL) Loan Servicing Officer Goal (LTG) Move R arm normal (90% of normal) to close car door with minimal pain. 12/25/21: stated hasn't been using RUE as much but will try . 12/30/21: stated bicep and UT little sore after ex but better able to do more. 01/01/22: Able to shut car door with minimal pain. LTG Duration 03/02/22 (01/01/22: MET GOAL ) Two Impairment Decreased R shoulder strength Short Term Goal (STG) Gain strength in R shoulder to return to piano play. 12/25/21: pt stated only played piano x1 and hard due to lack of hand strength, will play before next tx for feedback. 12/30/21: stated little decreased dexterity but able to do some. 01/01/22: States she can play piano but aches across dorsal side of R hand and at R radial wrist and thumb. STG Duration 01/18/22 (01/08/22: MET GOAL) Group Home Goal (LTG) Gain strength in R arm to open bottles or jars. 12/25/21: She stated has been asking to do using her tool. Will try herself before next tx. 12/30/21: Unable to open jars but ableto waterbottle, little discomfort. 01/01/22: Able to open bottles and couldn't open jars before being hurt; therefore pt satisfied with her current condition). LTG Duration 03/02/22 (01/01/22: MET GOAL) One Impairment HEP Short Term Goal (STG) Pt able to demonstrate ability to use clippers for pruning or gardening. 12/25/21: did some gardening digging/ weed pulling pretty good. Will use her scissors for pruning before next tx for feedback. 01/01/22: Can use scissor and feels she won't have a problem with using pruning shear. 12/30/21: didnt use clippers but did some gardening has pain in R wrist. 01/08/22: Can use clippers, but her R hand/wrist hurts, so she uses garden scissors). STG Duration 01/18/22 (01/12/22: MET GOAL) Loan Servicing Officer Goal (LTG) Independent with HEP of scapular stab, shoulder, elbow ROM and strengthening ex's. 12/25 21: added to HEP: D1 ext and D2 extension for strengthening to close car door, 1st MCP flexion putty, 12/30/21: reviewed finger extension w/ rubber band. 01/06/22: reviewed wrist TB HEP and added self STMs to R suprascap ball wall/ theracane . (01/12/22: HEP: UT/Lev scap & pec stretch, shoulder press overhead TB strengthening). (01/23/22: HEP: Added Biceps Cur and Shldr ER/IR T-Bandl strengthening, issued revised directions for Upper trap stretch) LTG Duration 03/02/22 (01/23/22: MET GOAL ) Assessment Summary Assessment Goals met. Some confusion with a few of the home ex's that appear to be more clear after training. Pt has returned to function with no complaints of R shoulder pain, but functionally has weakness and per UE Quickdash show functional impairment of 13%. The pt feels she is ready to be placed on an independent HEP; therefore pt will discharged today to her progressive home exercises. Physical Therapy Plan Discharge Physical Therapy Discharge Reasons Goals Met Discharge Comments The pt did very well with therapy, but she has dysfunction with possible R shoulder Rotator Cuff injury. Thank you for your referral.
== END 2022-01-26 13:54 ==
LOC: PHYS 13:00
PROVIDERS: PCP Nurse Practitioner; Referring Provider Nurse Practitioner; Visit Provider Nurse Practitioner
DX: M79.601 Pain in right arm (principal); W19.XXXA Unspecified fall, initial encounter
CPT/HCPCS: 97110; 97140; 97162; 97535

== ENCOUNTER → 2022-01-28 10:02 | Outpatient (CLI) | payer MEDICARE, SELFPAY ==
[2022-01-28 12:40] LABS: Creatinine Urine Random 123.7 mg/dL
[2022-01-28 12:42] LABS: Alanine Aminotransferase 15 IU/L (<35); Albumin 3.8 g/dL (3.5-5.0); Albumin Globulin Ratio 1.6 (1.0-2.8); Alkaline Phosphatase 95 U/L (38-126); Aspartate Aminotransferase 22 IU/L (14-36); BUN Creatinine Ratio 18.5 (6-22); Bilirubin Total 0.8 mg/dL (0.2-1.3); Blood Urea Nitrogen 12 mg/dL (7-17); Calcium 9.4 mg/dL (8.4-10.2); Carbon Dioxide 28 mmol/L (22-32); Chloride 105 mmol/L (98-107); Cholesterol 162 mg/dL (140-199); Estimated Glomerular Filt Rate > 60 mL/min (>60); Globulin 2.4 g/dL (1.7-4.1); Glucose 86 mg/dL (80-110); HDL Cholesterol 74 mg/dL (40-60); HEMOLYSIS < 15 (0-50); LDL Cholesterol Calculated 72 mg/dL (<100); Potassium 4.5 mmol/L (3.4-5.1); Sodium 140 mmol/L (137-145); Total Protein 6.2 g/dL (6.3-8.2); Triglycerides 80 mg/dL (35-150)
[2022-01-28 12:44] LABS: Microalbumi Creatinin Ratio Ur 16.1 ug/mg CR (<30)
[2022-01-28 13:14] LABS: Free T3, Triiodothyronine Free 2.76 pg/mL (2.77-5.27); Free T4, Direct Thyroxine 0.99 ng/dL (0.78-2.19)
[2022-01-28 13:28] LABS: Thyroid Stimulating Hormone 1.27 uIU/mL (0.47-4.68)
== END ==
PROVIDERS: PCP Nurse Practitioner; Referring Provider Nurse Practitioner; Visit Provider Nurse Practitioner
DX: E78.2 Mixed hyperlipidemia (principal); E78.5 Hyperlipidemia, unspecified; R03.0 Elevated blood-pressure reading, without diagnosis of hypertension; Z79.899 Other long term (current) drug therapy
CPT/HCPCS: 36415; 80053; 80061; 82043; 82570; 84439; 84443; 84481

== ENCOUNTER 2022-03-19 09:45 | Emergency (ER) | payer MEDICARE, SELFPAY ==
[2022-03-19 09:45] VITALS: BP 177/85; PULSE 95; RESP 15; TEMP 37.1; O2SAT 98; BMI 28.3
[2022-03-19 09:49] VITALS: BP 177/85; PULSE 100; O2SAT 98
--- NOTE | 2022-03-19 09:54 | ED_ITS ---
HPI - Fall General Chief Complaint: Fall Stated Complaint: Fall yesterday, Hurt back of head and R wrist Time Seen by Provider: 03/19/22 09:52 Source: patient Mode of arrival: Ambulatory Limitations: no limitations History of Present Illness HPI Narrative: This is a 76 year old on anticoagulated female who is on amitriptyline, gabapentin and simvastatin daily. Patient states yesterday she was stepping up missed a step and fell backwards onto dirt and gravel ground. Striking her head, she is had persistent mild headache she states she also hit her head in January. She is had right wrist pain with movement and some lower lumbar discomfort midline and off to the right since her fall. Patient denies loss of consciousness. She denies any neck or upper back pain. She denies chest pain or shortness of breath. She is had some mild nausea, no vomiting. No diarrhea, constipation, no fecal or urinary incontinence. Denies any numbness, tingling or weakness in her extremities. She has been ambulating. Patient states she had surgery for fracture in her leg in the past. Denies any other surgical history. Patient has taken ibuprofen for pain which has been moderately helpful. She denies tobacco, occasional alcohol, no illicit. Related Data Previous Rx's Medication Instructions Recorded varicella-zoster glycoE [id number] 0.5 ml IM ONCE #1 ea 02/17/21 adj(PF) 50 mcg/0.5 mL IM susp, kit (Shingrix (PF)) alprazolam 0.5 mg tablet 0.5 mg PO TID #5 tabs 02/25/21 fluticasone propionate 50 1 spray intranasal DAILY #16 grams 11/11/21 mcg/actuation nasal spray,suspension (Allergy Relief (fluticasone)) amitriptyline 10 mg tablet 5 mg PO BEDTIME #90 tabs 02/02/22 cetirizine 10 mg tablet (Zyrtec) 10 mg PO DAILY PRN allergy 02/02/22 symptoms #90 tabs cholecalciferol (vitamin D3) 50 50 mcg PO DAILY #90 caps 02/02/22 mcg (2,000 unit) capsule gabapentin 100 mg capsule 100 mg PO TID #270 caps 02/02/22 ibuprofen 400 mg tablet See Rx Instructions PO QAM #180 02/02/22 tabs olopatadine 0.1 % eye drops 1 drp EYE-BOTH BID PRN itchy 02/02/22 (Pataday Twice Daily Relief) watery eyes #5 mL omeprazole 20 mg capsule,delayed 20 mg PO DAILY #90 caps 02/02/22 release simvastatin 10 mg tablet 10 mg PO BEDTIME #90 tabs 02/02/22 tramadol 50 mg tablet (Ultram) 50 mg PO Q6H PRN pain #14 tabs 03/19/22 Allergies Allergy/AdvReac Type Severity Reaction Status Date / Time amoxicillin Allergy Mild rash Verified 03/19/22 09:50 azithromycin Allergy Mild rash Verified 03/19/22 09:50 fluticasone [From Flonase] Allergy Mild coughing Verified 03/19/22 09:50 CONTRAST MEDIA, IODINE Allergy Mild red streak Uncoded 02/02/22 09:08 RELATED on arm From ZITHROMAX Allergy Unknown RASH Uncoded 02/02/22 09:08 SULFA Allergy Unknown RASH Uncoded 02/02/22 09:08 Review of Systems Review of Systems ROS Unobtainable: All systems reviewed & are unremarkable except as noted in HPI and below Patient History Medical History Aneurysm, splenic artery (~1996) Arthritis Bruises easily Carpal tunnel syndrome (~2003) Chicken pox (~1955) Colon polyps (~1999) Elevated blood pressure reading in office with white coat syndrome, without diagnosis of hypertension Fall Fractures (~1990) Headache (~1962) Hyperlipidemia LDL goal <100 Hyperlipidemia, mixed Measles (~1956) Migraines (~1962) Mumps (~1954) Neuropathy Pain of right upper extremity Peripheral neuropathy (~2011) Ptosis, bilateral Vertigo (~2004) Wears glasses Social History household members: spouse Smoking Status: Never smoker alcohol intake: never Smoking Status: Never smoker alcohol intake frequency: holidays/special occasions only Substance Use Type: does not use Exam Narrative Exam Narrative: GEN: Patient appears in mild distress. HEAD: No evidence of trauma, no raccoon/Angulo sign. NECK: Nontender, painless range of motion, trachea midline Negative for Nexus criteria, there is no midline line tenderness, distracting injury, altered mental status, neuro deficit, recent EtOH. EYES: PERRLA, EOMI ENT: External inspection normal, trachea is midline, TM's are normal no hemotypanum, Nares are clear, no septal hematoma, no dental or oral injury, air way is normal and with normal occlusion, No bony tenderness RESP: Chest is nontender and has symmetric movement, no ecchymosis, breath sounds are normal no crackles, wheezes or rales CVS: Heart sounds are normal, no murmur noted, No JVD. ABG/GI: Nontender, soft, normal bowel sounds, no distention, no organomegaly, pelvic rock is negative NEURO: Oriented AOx3, neuro is grossly intact, sensation and motor is normal all 4 extremities moving, cranial nerves II through XII are intact, GCS is 15, normal gait. PSYCH: Normal mood and affect SKIN: Intact, warm and dry, no crepitus and without decubitus BACK: No CVA tenderness, patient has mild L3-4 tenderness, she is some mild left lateral tenderness, no other vertebral tenderness, no step-off's, no crepitus EXT: Patient has right wrist tenderness, full range of motion, no obvious deformity, no other bony tenderness in her right upper extremity. No swelling or ecchymosis. Hips are nontender, no pedal edema, normal color and temperature, normal range of motion of extremities with normal tendon exam, 2+ pulses in all four extremities Initial Vital Signs Initial Vital Signs: Vital Signs Temperature 98.8 F 03/19/22 09:45 Pulse Rate 95 H 03/19/22 09:45 Respiratory Rate 15 03/19/22 09:45 Blood Pressure 177/85 H 03/19/22 09:45 Pulse Oximetry 98 03/19/22 09:45 Oxygen Delivery Method 03/19/22 09:45 Scores GCS [place] coma scale eye opening: Spontaneous [place] coma scale verbal response: Orientated [place] coma scale motor response: Obey commands [place] coma scale total score: 15 Course Orders Ordered: ED Orders 03/19/22 10:01 XR lumbar spine 2-3V Stat XR wrist RT min 3V Stat 03/19/22 10:14 CT head/brain wo con Stat Vital Signs Vital signs: Vital Signs - 8 hr 03/19/22 09:45 03/19/22 09:49 03/19/22 09:49 Temperature 98.8 F Pulse Rate 95 H 100 H Respiratory Rate 15 Blood Pressure 177/85 H 177/85 H Pulse Oximetry 98 98 Oxygen Delivery Method Room Air 03/19/22 10:00 03/19/22 10:00 03/19/22 10:31 Temperature Pulse Rate 92 H 83 Respiratory Rate Blood Pressure 169/81 H Pulse Oximetry 98 97 Oxygen Delivery Method 03/19/22 10:33 03/19/22 10:33 Temperature Pulse Rate 83 Respiratory Rate Blood Pressure 164/76 H Pulse Oximetry 97 Oxygen Delivery Method MDM - Fall MDM Narrative Medical decision making narrative: This is a 76-year-old female comes emergency department with complaint of ground level fall yesterday, patient states she did hit her head, she is had persistent headache since yesterday, denies any neck pain. After discussion she is not anticoagulated but based on her age would be appropriate for head CT. Patient is nontender on cervical spine with no other symptoms and this was deferred. Patient does have some mild tenderness over the right wrist which is her main complaint and some lower lumbar discomfort which is quite mild on exam. X-ray of L-spine and wrist were obtained, head CT is negative. L-spine shows possible compression fracture at L1 although patient is tender little bit lower this could be from her recent fall. Wrist x-ray shows scaphoid fracture possibly old, on repeat examination patient is nontender over this region she states she has had injuries to her wrist in the past. There also is some widening. Most of her pain is with flexion extension at the wrist plan for immobilization of the thumb and wrist and follow-up with orthopedic surgery. Discharge Plan Departure Patient Disposition: Home Clinical Impression: Fall, Closed compression fracture of L1 vertebra, Fracture of scaphoid Instructions: Wrist Fracture, DI for Vertebral Fracture Activity Restrictions/Additional Instructions: Follow-up with orthopedic surgery in the next week. Please call today or tomorrow to set up an appointment in the next week Your imaging today does show an L1 compression fracture this may be old but you do have some tenderness in this region. It is also noted that you have what appears to be a fracture to the scaphoid bone in your hand although this appears older there is some widening suggesting a ligament tear or injury as well. Please wear splint until you see Orthopedic surgery. You can take Tylenol up to a 1000 mg every 6 hours as needed and/or ibuprofen up to 600 mg every 6 hours. If inadequate for pain you can take narcotic pain medication 1-2 tablets every 6 hours as needed. Prescription sent to [facility]. Splint Care: Keep splint clean and dry. Elevated affected body part to decrease swelling. OK to use ice pack on the affected body part. Use for 15-20 minutes each time, for 5-6x per day. If you develop worsening pain, numbness, tingling, discoloration of the affected body part, loosen the splint by loosening the ATIYA wrap, and either see your doctor for an urgent re-assessment, or return to the Emergency Department. Return to the Emergency Department for any new or worsening symptoms. Prescriptions: New tramadol [Ultram] 50 mg tablet 50 mg PO Q6H PRN (Reason: pain) Qty: 14 0RF No Action alprazolam 0.5 mg tablet 0.5 mg PO TID Qty: 5 0RF Rx Instructions: Take 1/2 - 1 tab 60 mins prior to procedure, MRx2 every 30 mins for max of 3 doses total. fluticasone propionate [Allergy Relief (fluticasone)] 50 mcg/actuation spray,suspension 1 spray intranasal DAILY Qty: 16 2RF Rx Instructions: administer into each nostril amitriptyline 10 mg tablet 5 mg PO BEDTIME Qty: 90 3RF cetirizine [Zyrtec] 10 mg tablet 10 mg PO DAILY PRN (Reason: allergy symptoms) Qty: 90 3RF cholecalciferol (vitamin D3) 50 mcg (2,000 unit) capsule 50 mcg PO DAILY Qty: 90 3RF gabapentin 100 mg capsule 100 mg PO TID Qty: 270 3RF ibuprofen 400 mg tablet See Rx Instructions PO QAM Qty: 180 3RF Rx Instructions: 400mg in the morning and 400mg in the evening omeprazole 20 mg capsule,delayed release(DR/EC) 20 mg PO DAILY Qty: 90 3RF Rx Instructions: Take 1 capsule daily for GERD olopatadine [Pataday Twice Daily Relief] 0.1 % drops 1 drp EYE-BOTH BID PRN (Reason: itchy watery eyes) Qty: 5 3RF simvastatin 10 mg tablet 10 mg PO BEDTIME Qty: 90 3RF Rx Instructions: Take 1 tab by mouth at bedtime daily for elevated cholesterol Shingrix (PF) 50 mcg/0.5 mL suspension for reconstitution 0.5 ml IM ONCE Qty: 1 0RF Rx Instructions: as a single dose Referrals: Shanell Carrero ARNP [Primary Care Provider] - Pravin Mendez MD [Physician] - Visit Report Forms: Patient Portal/API
[2022-03-19 10:00] VITALS: BP 169/81; PULSE 92; O2SAT 98
--- NOTE | 2022-03-19 10:01 | DI.RAD.S_ITS ---
PROCEDURE: XR LUMBAR SPINE 2-3V INDICATIONS: fall, head injury, R wrist/Lspine pain. TECHNIQUE: 3 views of the lumbar spine were acquired. COMPARISON: [facility], CT, CT HEAD/BRAIN WO CON, 03/19/2022, 10:14. [facility], CR, XR WRIST RT MIN 3V, 03/19/2022, 10:04. FINDINGS: Bones: 5 [id number] vertebrae are present. There is moderate dextroconvex lumbar scoliosis. No focal AP alignment abnormality is seen. There is a fracture involving the L1 level, with approximately 50% loss of height centrally. A although no acute features are seen, this is age indeterminate. No displaced fracture fragments are seen. No suspicious bony lesions. There is moderate to severe disc space narrowing at L3-L4, L4-L5, and L5-S1. Facet arthropathy is seen throughout, which is worst inferiorly. Soft tissues: Overlying bowel gas pattern is normal. No suspicious soft tissue calcifications. IMPRESSION: L1 compression deformity seen, age indeterminate. Please correlate with patient history and focal tenderness. If it would be helpful for clinical management decision making in this patient with this given history, please consider a dedicated lumbar spine CT for further evaluation. Moderate dextroconvex scoliosis. Degenerative changes are seen throughout, which are worst inferiorly. Dictated by: Genaro Edwards M.D. on 03/19/2022 at 9:46 Approved by: Genaro Edwards M.D. on 03/19/2022 at 9:49
--- NOTE | 2022-03-19 10:01 | DI.RAD.S_ITS ---
PROCEDURE: XR WRIST RT MIN 3V INDICATIONS: fall, head injury, R wrist/Lspine pain. TECHNIQUE: 4 views of the wrist were acquired. COMPARISON: [facility], CT, CT HEAD/BRAIN WO CON, 03/19/2022, 10:14. [facility], CR, XR LUMBAR SPINE 2-3V, 03/19/2022, 10:04. FINDINGS: Bones: On the scaphoid view, there is a remote appearing fracture involving the distal waist of the scaphoid. No additional fractures are detected. Degenerative changes are seen throughout, which are most prominent involving the radial aspect of the carpus and the interface between the hamate and lunate. There is widening of the scapholunate interface. No suspicious bony lesions. Soft tissues: No suspicious soft tissue calcifications. IMPRESSION: There is a chronic appearing fracture involving the distal waist of the scaphoid. Underlying degenerative changes are seen. There is widening of the scapholunate interface. An underlying scapholunate ligament tear is presumed. If it would be helpful for clinical management decision making, please consider a dedicated, scheduled wrist MRI for further evaluation (assuming that there is no contraindication). If there is strong clinical concern for a ligamentous abnormality, this should be performed according to the MR arthrogram protocol. Dictated by: Genaro Edwards M.D. on 03/19/2022 at 9:44 Approved by: Genaro Edwards M.D. on 03/19/2022 at 9:46
--- NOTE | 2022-03-19 10:14 | DI.CT.S_ITS ---
PROCEDURE: CT HEAD/BRAIN WO CON INDICATIONS: fall, hit head TECHNIQUE: Noncontrast 4.5 mm thick angled axial sections acquired from the foramen magnum to the vertex, with coronal and sagittal reformats. For radiation dose reduction, the following was used: automated exposure control, adjustment of mA and/or kV according to patient size. COMPARISON: [facility], MR, BRAIN W&WO CONTRAST, 05/10/2012, 13:16. [facility], CR, XR WRIST RT MIN 3V, 03/19/2022, 10:04. [facility], CR, XR LUMBAR SPINE 2-3V, 03/19/2022, 10:04. [facility], CT, HEAD WITHOUT CONTRAST, 05/02/2012, 18:59. FINDINGS: Image quality: Excellent. CSF spaces: Basal cisterns are patent. No extra-axial fluid collections. The ventricles are symmetric in size and shape. Brain: No intracranial bleeds or masses. There is cerebral volume loss for age, with resultant ventricular and sulcal prominence. There are periventricular and deep white matter chronic small vessel ischemic changes. There is intracranial internal carotid artery atherosclerosis. Skull and face: Calvarium and visualized facial bones appear intact, without suspicious lesions. Sinuses: Visualized sinuses and mastoids are clear. IMPRESSION: No acute intracranial hemorrhage is seen. No acute intracranial process is seen. Dictated by: Genaro Edwards M.D. on 03/19/2022 at 9:40 Approved by: Genaro Edwards M.D. on 03/19/2022 at 9:43
[2022-03-19 10:31] VITALS: PULSE 83; O2SAT 97
[2022-03-19 10:33] VITALS: BP 164/76; PULSE 83; O2SAT 97
== END 2022-03-19 11:43 | disposition home or self-care (01) ==
PROVIDERS: Emergency Provider Emergency Medicine; PCP Nurse Practitioner
DX: S32.019A Unspecified fracture of first lumbar vertebra, initial encounter for closed fracture (principal); S62.001A Unspecified fracture of navicular [scaphoid] bone of right wrist, initial encounter for closed fracture; W19.XXXA Unspecified fall, initial encounter; Z79.01 Long term (current) use of anticoagulants
CPT/HCPCS: 29280; 70450; 72100; 73110; 99284

== ENCOUNTER → 2022-03-23 14:27 | Outpatient (CLI) | payer MEDICARE, SELFPAY ==
--- NOTE | 2022-03-23 14:29 | DI.CT.S_ITS ---
PROCEDURE: CT LUMBAR SPINE WO CON INDICATIONS: Fall. TECHNIQUE: Noncontrast 3 mm thick sections acquired from the T12 level to the sacrum. Sagittal and coronal reformats were constructed. For radiation dose reduction, the following was used: automated exposure control. COMPARISON: [facility], CR, XR LUMBAR SPINE 2-3V, 03/19/2022, 10:04. FINDINGS: Image quality: Excellent. Bones: There is normal bony alignment. Convex right scoliosis of the lumbar spine. Loss of height noted in the L1 vertebral body compatible with compression fracture. L1 compression fracture is acute in appearance. L1 compression fracture results in approximately 30% loss of normal vertebral body height. No retropulsed fragments are kyphosis associated with the L1 compression fracture. Chronic appearing T11 compression fracture is noted. T11 compression fracture results in approximately 40% loss of normal anterior vertebral body height. No retropulsed fragments are kyphosis associated with the T11 compression fracture. No suspicious lytic or blastic bony lesions. No pars defects. Moderate to severe lumbar spine degenerative disc changes. Moderate lower lumbar spine facet hypertrophy. Soft tissues: No retroperitoneal masses or hematomas. Visualized aorta is normal in caliber. Partially visualized, partially calcified splenic artery aneurysm versus splenic cyst. IMPRESSION: Acute appearing L1 compression fracture. Chronic appearing T11 compression fracture. Partially visualized splenic artery aneurysm versus calcified splenic cyst. Recommend CT scan of the abdomen with contrast for definitive characterization of the finding. Dictated by: Leticia Dela Cruz MD, PhD on 03/23/2022 at 16:55 Approved by: Leticia Dela Cruz MD, PhD on 03/23/2022 at 17:01
== END ==
PROVIDERS: PCP Nurse Practitioner; Referring Provider Nurse Practitioner; Visit Provider Nurse Practitioner
DX: S32.010A Wedge compression fracture of first lumbar vertebra, initial encounter for closed fracture (principal); M48.54XS Collapsed vertebra, not elsewhere classified, thoracic region, sequela of fracture; M41.86 Other forms of scoliosis, lumbar region; W19.XXXA Unspecified fall, initial encounter
CPT/HCPCS: 72131

== ENCOUNTER → 2022-04-30 15:04 | Outpatient (CLI) | payer MEDICARE, SELFPAY | PROVIDERS: PCP Nurse Practitioner; Visit Provider Registered Nurse | DX: N39.0 Urinary tract infection, site not specified (principal) | CPT/HCPCS: 87086 ==

== ENCOUNTER 2022-12-23 12:45 | Outpatient (RCR) | payer MEDICARE, SELFPAY ==
--- NOTE | 2022-10-19 18:03 | PT.OIE ---
Current Diagnoses Low back pain, unspecified (10/19/22) Repeated falls (10/19/22) Weakness (10/19/22) Wedge compression fracture of T11-T12 vertebra, sequela (10/19/22) Wedge compression fracture of first lumbar vertebra, initial encounter for closed fracture (10/19/22) Past Medical History (Last Updated 08/03/22 @ 16:20 by CARMINA Arnold) Aneurysm, splenic artery (~1996) Arthritis Bruises easily Carpal tunnel syndrome (~2003) Chicken pox (~1955) Colon polyps (~1999) Compression fracture of L1 lumbar vertebra Compression fracture of T11 vertebra Elevated blood pressure reading in office with white coat syndrome, without diagnosis of hypertension Fall Fractures (~1990) Headache (~1962) Hyperlipidemia LDL goal <100 Hyperlipidemia, mixed Measles (~1956) Migraines (~1962) Mumps (~1954) Neuropathy Pain of right upper extremity Peripheral neuropathy (~2011) Ptosis, bilateral Vertigo (~2004) Wears glasses Visit Care Team Role Provider Type CARMINA Arnold Attending Provider Advanced Director Rehabilitation Program Family Provider Primary Care Provider Referring Provider Specialty: Family Practice Address: [address] [place] [address], [facility] Email: [email or web address] Physical Therapy Initial Evaluation PT-OP-A Visit Information Start: 10/15/22 17:05 Freq: Status: Active Protocol: Document 10/19/22 14:29 [facility] (Rec: 10/19/22 15:23 [facility] [id number]) Out-Patient Physical Therapy Visit Information Visit Information Visit Type Initial Evaluation Visit Note 09/01 Visit Start Time 14:30 Visit Stop Time 15:15 Total Visit Minutes 45 Visit Number 1 Number of HEMATOLOGY NURSE Visits 0 PT-OP-B Current Condition Start: 10/15/22 17:05 Freq: Status: Active Protocol: Document 10/19/22 14:29 [facility] (Rec: 10/19/22 15:23 [facility] [id number]) Current Condition History of Current Condition Onset Date past year Current Complaints falls, back pain d/t compression fx History of Current Condition Pt reports first fall (october 28 , she tripped on beadspread and hurt her shoulder. Did PT for shoulder. 2nd fall when she hit her sternum andhead on february 10 d/t missing a step on uneven and irregular.Last one , she missed a step going backwards and that was when she fractured her back 7 . She does have neuropathy in her feet. Pt reports she gets dizzy when gets up from bed and sometimes with rolling in bed. She feels like things are moving around in her head. Sometimes she gets spinning. She notes she gets the same thing when she moves her head around sometimes. Pt reports back is achey in the bad weather, but it isn't too bad at all. She also has a wrist injury from her fall and hurt her shoulder and then her 3rd fall made it worse. Lately her knees have been hurting. 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 NOw both hurt going up/down stairs but she hasn't seen anyone yet. She has been trying to be more cautious to avoid falling and has been trying not to be impulsive. She can't bend over in the mornings d/t her back. She also cannot reach or lift overhead d/t pain in back. Pt walks almost every day for about 2 miles. When in [place] in Aug, she walked 5 miles a day. pt was using a walking stick until Aug to walk with to help dec pressure in her back. Prior Treatments and Tests Lumbar CT: IMPRESSION: Acute appearing L1 compression fracture. Chronic appearing T11 compression fracture. Partially visualized splenic artery aneurysm versus calcified splenic cyst. Recommend CT scan of the abdomen with contrast for definitive characterization of the finding. Treatment Goals Patient/Caregiver Goals Help her with balance, not feel dizzy with activities, show her how to be more stable so she isn't tripping and falling, be able to reach overhead and bend over as needed w/o inc pain, be able to canoe; be able to do stairs comfortably PT-OP-C Subjective Start: 10/15/22 17:05 Freq: Status: Active Protocol: Document 10/19/22 14:29 [facility] (Rec: 10/19/22 17:45 [facility] [id number]) Patient Questionnaires ABC- Activity Specific Balance Confidence Scale ABC Score 54.4 Oswestry Low Back Index Oswestry Score 12/50 PT-OP-D Balance Start: 10/15/22 17:05 Freq: Status: Active Protocol: Document 10/19/22 14:29 [facility] (Rec: 10/19/22 15:23 [facility] [id number]) Balance Tests Gong Balance Test Gong Balance Test Score 48 Single Limb Standing Single Limb- Right 2 sec Single Limb- Left 2 sec PT-OP-E Functional Tests Start: 10/15/22 17:05 Freq: Status: Active Protocol: Document 10/19/22 14:29 [facility] (Rec: 10/19/22 15:23 [facility] [id number]) Functional Tests 30 Second Sit to Stand Test Score 8 Comments dec control down; knee pain Dynamic Gait Index (DGI) Score Five Times Sit to Stand Test Score 18 sec Comments dec control down; knee pain Functional Gait Assessment Score PT-OP-F Manual Assessment Start: 10/15/22 17:05 Freq: Status: Active Protocol: Document 10/19/22 14:29 [facility] (Rec: 10/19/22 15:23 [facility] [id number]) Manual Assessments Soft Tissue Assessment Soft Tissue Mobility Assessment some B QL & ES tightness PT-OP-G Mobility & Gait Start: 10/15/22 17:05 Freq: Status: Active Protocol: Document 10/19/22 14:29 [facility] (Rec: 10/19/22 15:23 [facility] [id number]) OP Gait Assessment Comments Gait Comments lat lean R w/R WB PT-OP-J Posture/Palpation/Skin Start: 10/15/22 17:05 Freq: Status: Active Protocol: Document 10/19/22 14:29 [facility] (Rec: 10/19/22 15:23 [facility] [id number]) Posture Evaluation Comments Posture Comments left iliac crest higher, equal greater trochanters; L shoulder higher PT-OP-L Special Tests Start: 10/15/22 17:05 Freq: Status: Active Protocol: Document 10/19/22 14:29 [facility] (Rec: 10/19/22 15:23 [facility] [id number]) Special Tests Lumbar Spine Special Tests Straight Leg Raise Test Results 90 deg L: about 75 deg R PT-OP-M Strength Start: 10/15/22 17:05 Freq: Status: Active Protocol: Document 10/19/22 14:29 [facility] (Rec: 10/19/22 15:23 [facility] [id number]) Hip Strength Hip Manual Muscle Testing Right Flexion (L2) 3 Fair Extension (S1) 3+ Fair+ Abduction 4- Good- External Rotation 3 Fair Internal Rotation 4 Good Left Flexion (L2) 3 Fair Extension (S1) 3+ Fair+ Abduction 3 Fair External Rotation 3 Fair Internal Rotation 3+ Fair+ Knee Strength Knee Manual Muscle Testing Right Flexion (S2) 4- Good- Extension (L3) 3 Fair Left Flexion (S2) 3+ Fair+ Extension (L3) 3 Fair Ankle/Foot Strength Ankle and Foot Manual Muscle Testing Right Dorsiflexion (L4) 5 Normal Plantarflexion (S1) 5 Normal Left Dorsiflexion (L4) 5 Normal Plantarflexion (S1) 5 Normal Comments tested seated B PT-OP-T Assessment and Plan Start: 10/15/22 17:05 Freq: Status: Active Protocol: Document 10/19/22 14:29 [facility] (Rec: 10/19/22 15:23 [facility] [id number]) Physical Therapy Assessment Rehab Potential Rehabilitation Potential Good Evaluation Complexity Number of Personal Factors/Comorbidities 3 or More Number of Body Systems Impaired 4 or More Clinical Presentation at Evaluation Evolving Impairments Impairments Activity Tolerance,Balance, Functional Activities, Functional Mobility,Gait,Pain, Posture,ROM,Soft Tissue Mobility,Strength Goals stairs Echocardiography Radiology Technologist Goal (LTG) Pt will be able to go up/down stiars w/rail reciprocally w/ rail. LTG Duration 01/11/23 balance Impairment DGI 18/24; FGA Short Term Goal (STG) Pt will score at least 20/24 to show dec fall risk STG Duration 11/22/22 Echocardiography Radiology Technologist Goal (LTG) Pt will score at least 23/50 on FGA to shwo dec fall risk LTG Duration 01/11/23 sit to stands Impairment 8 in 30 sec Echocardiography Radiology Technologist Goal (LTG) Pt will be able to do 11 sit to stands w/o knee pain in 30 sec to show improve strength and stability. LTG Duration 01/11/23 GONG Half-Way Goal (LTG) pt will score at least 50 to show improved balance and safe as outdoor and community ambulator LTG Duration 01/11/23 mobility Short Term Goal (STG) Pt will be able to reach overhead w/o inc back pain STG Duration 12/10 Half-Way Goal (LTG) Pt will be able to bend over as needed at any point int the day w/o LBP LTG Duration 01/11/23 Assessment Summary Assessment Pt presents w/main c/o dec balance and now she is very careful d/t 3 falls last year that resulted in injuries (R wrist fx, R shoulder impingement, compression fx of lumbar spine) and she wants to feel like she can more comfortably continue her active life. She does have back stiffness and limitation since the compression fx like dec ability to bend over especially in the AMs. She does note dizziness w/changing positions in bed and with sitting up along w/head movements so would bneefit from being screened by vestibular therapist and is set up next week to be assessed for vestibular dysfunction. She rogers Physical Therapy Plan Frequency and Duration Frequency of Treatment 2x/Week Duration of treatment (weeks) 12 Plan of Care Start Date 10/19/22 Plan of Care End Date 01/11/23 Therapeutic Interventions Therapeutic Interventions Aquatic Therapy,Balance Training,Gait Training,Home Exercise Program,Joint Mobilizations,Manual Therapy, Neuromuscular Re-education, Orthotic/Prosthetic Management ,Patient/Caregiver Education, Self-Care/Home Management,Soft Tissue Mobilization,Taping, Therapeutic Activities, Therapeutic Exercises, Vestibular Rehabilitation Modalities Cold Pack/Ice Massage,Electric Stimulation,Hot Packs, Ultrasound Next Visit Focus/Plan Next Note Type Treatment Note Next Visit Plan HEP: sit to stands, side steps , tandem stance, alt hip ext, october; balance activities: hurdles, shuttle balance board , SL activities, EC activities
--- NOTE | 2022-10-19 18:03 | PT.OPPOC ---
Physical, Occupational & Speech Therapy At [facility] Current Diagnoses Low back pain, unspecified (10/19/22) Repeated falls (10/19/22) Weakness (10/19/22) Wedge compression fracture of T11-T12 vertebra, sequela (10/19/22) Wedge compression fracture of first lumbar vertebra, initial encounter for closed fracture (10/19/22) Visit Care Team Role Provider Type CARMINA Arnold Attending Provider Advanced Finishing Tunnel Operator Family Provider Primary Care Provider Referring Provider Specialty: Family Practice Address: [address] [place] [address], [facility] Email: [email or web address] Plan Of Care PT-OP-T Assessment and Plan Start: 10/15/22 17:05 Freq: Status: Active Protocol: Document 10/19/22 14:29 [facility] (Rec: 10/19/22 15:23 [facility] [id number]) Physical Therapy Assessment Rehab Potential Rehabilitation Potential Good Evaluation Complexity Number of Personal Factors/Comorbidities 3 or More Number of Body Systems Impaired 4 or More Clinical Presentation at Evaluation Evolving Impairments Impairments Activity Tolerance,Balance, Functional Activities, Functional Mobility,Gait,Pain, Posture,ROM,Soft Tissue Mobility,Strength Goals stairs Skilled Nursing Goal (LTG) Pt will be able to go up/down stiars w/rail reciprocally w/ rail. LTG Duration 01/11/23 balance Impairment DGI 18/24; FGA 18/30 Short Term Goal (STG) Pt will score at least 20/24 to show dec fall risk STG Duration 11/22/22 Radiation / Chemistry Technician Goal (LTG) Pt will score at least 23/50 on FGA to shwo dec fall risk LTG Duration 01/11/23 sit to stands Impairment 8 in 30 sec Radiation / Chemistry Technician Goal (LTG) Pt will be able to do 11 sit to stands w/o knee pain in 30 sec to show improve strength and stability. LTG Duration 01/11/23 SANTANA Skilled Nursing Goal (LTG) pt will score at least 50 to show improved balance and safe as outdoor and community ambulator LTG Duration 01/11/23 mobility Short Term Goal (STG) Pt will be able to reach overhead w/o inc back pain STG Duration 12/10 Radiation / Chemistry Technician Goal (LTG) Pt will be able to bend over as needed at any point int the day w/o LBP LTG Duration 01/11/23 Assessment Summary Assessment Pt presents w/main c/o dec balance and now she is very careful d/t 3 falls last year that resulted in injuries (R wrist fx, R shoulder impingement, compression fx of lumbar spine) and she wants to feel like she can more comfortably continue her active life. She does have back stiffness and limitation since the compression fx like dec ability to bend over especially in the AMs. She does note dizziness w/changing positions in bed and with sitting up along w/head movements so would bneefit from being screened by vestibular therapist and is set up next week to be assessed for vestibular dysfunction. She rogers Physical Therapy Plan Frequency and Duration Frequency of Treatment 2x/Week Duration of treatment (weeks) 12 Plan of Care Start Date 10/19/22 Plan of Care End Date 01/11/23 Therapeutic Interventions Therapeutic Interventions Aquatic Therapy,Balance Training,Gait Training,Home Exercise Program,Joint Mobilizations,Manual Therapy, Neuromuscular Re-education, Orthotic/Prosthetic Management ,Patient/Caregiver Education, Self-Care/Home Management,Soft Tissue Mobilization,Taping, Therapeutic Activities, Therapeutic Exercises, Vestibular Rehabilitation Modalities Cold Pack/Ice Massage,Electric Stimulation,Hot Packs, Ultrasound Next Visit Focus/Plan Next Note Type Treatment Note Next Visit Plan HEP: sit to stands, side steps , tandem stance, alt hip ext, october; balance activities: hurdles, shuttle balance board , SL activities, EC activities Plan of Care Dates Plan of Care Start Date 10/19/22 Plan of Care End Date 01/11/23 Electronically Signed by: Alisha Bonilla, PT 10/19/22 4238 If you are in agreement with this Plan of Care, please return a signed and dated copy. I have reviewed this Plan of Care and certify that the skilled therapy services above are required to meet the patient?s needs. Physician Signature Date Printed Name and Credentials Clinical Instructor Signature Printed Name and Credentials
--- NOTE | 2022-10-22 15:39 | PT.OTN ---
Current Diagnoses Low back pain, unspecified (10/22/22) Repeated falls (10/22/22) Weakness (10/22/22) Wedge compression fracture of T11-T12 vertebra, sequela (10/22/22) Wedge compression fracture of first lumbar vertebra, initial encounter for closed fracture (10/22/22) Physical Therapy Treatment Note PT-OP-A Visit Information Start: 10/15/22 17:05 Freq: Status: Active Protocol: Document 10/22/22 14:33 [facility] (Rec: 10/22/22 15:39 [facility] [id number]) Out-Patient Physical Therapy Visit Information Visit Information Visit Type Treatment Note Visit Note 10/02 Visit Start Time 14:34 Visit Stop Time 15:15 Total Visit Minutes 41 Visit Number 2 Number of REPRODUCTION MACHINE LOADER Visits 0 PT-OP-B Current Condition Start: 10/15/22 17:05 Freq: Status: Active Protocol: Document 10/19/22 14:29 [facility] (Rec: 10/19/22 15:23 [facility] [id number]) Current Condition History of Current Condition Onset Date past year Current Complaints falls, back pain d/t compression fx History of Current Condition Pt reports first fall (october 28 , she tripped on beadspread and hurt her shoulder. Did PT for shoulder. 2nd fall when she hit her sternum andhead on february 10 d/t missing a step on uneven and irregular.Last one , she missed a step going backwards and that was when she fractured her back 7. . She does have neuropathy in her feet. Pt reports she gets dizzy when gets up from bed and sometimes with rolling in bed. She feels like things are moving around in her head. Sometimes she gets spinning. She notes she gets the same thing when she moves her head around sometimes. Pt reports back is achey in the bad weather, but it isn't too bad at all. She also has a wrist injury from her fall and hurt her shoulder and then her 3rd fall made it worse. Lately her knees have been hurting. 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 NOw both hurt going up/down stairs but she hasn't seen anyone yet. She has been trying to be more cautious to avoid falling and has been trying not to be impulsive. She can't bend over in the mornings d/t her back. She also cannot reach or lift overhead d/t pain in back. Pt walks almost every day for about 2 miles. When in [place] in Aug, she walked 5 miles a day. pt was using a walking stick until Aug to walk with to help dec pressure in her back. Prior Treatments and Tests Lumbar CT: IMPRESSION: Acute appearing L1 compression fracture. Chronic appearing T11 compression fracture. Partially visualized splenic artery aneurysm versus calcified splenic cyst. Recommend CT scan of the abdomen with contrast for definitive characterization of the finding. Treatment Goals Patient/Caregiver Goals Help her with balance, not feel dizzy with activities, show her how to be more stable so she isn't tripping and falling, be able to reach overhead and bend over as needed w/o inc pain, be able to canoe; be able to do stairs comfortably PT-OP-C Subjective Start: 10/15/22 17:05 Freq: Status: Active Protocol: Document 10/22/22 14:33 [facility] (Rec: 10/22/22 15:39 [facility] [id number]) OP-PT Subjective Patient Comments Patient Comments Pt reports she feels unstable in her garden and wants to work on that. PT-OP-D Balance Start: 10/15/22 17:05 Freq: Status: Active Protocol: Document 10/19/22 14:29 [facility] (Rec: 10/19/22 15:23 [facility] [id number]) Balance Tests Santana Balance Test Santana Balance Test Score 48 Single Limb Standing Single Limb- Right 2 sec Single Limb- Left 2 sec PT-OP-E Functional Tests Start: 10/15/22 17:05 Freq: Status: Active Protocol: Document 10/19/22 14:29 [facility] (Rec: 10/19/22 15:23 [facility] [id number]) Functional Tests 30 Second Sit to Stand Test Score 8 Comments dec control down; knee pain Dynamic Gait Index (DGI) Score 18/24 Five Times Sit to Stand Test Score 18 sec Comments dec control down; knee pain Functional Gait Assessment Score 18/30 PT-OP-F Manual Assessment Start: 10/15/22 17:05 Freq: Status: Active Protocol: Document 10/19/22 14:29 [facility] (Rec: 10/19/22 15:23 [facility] [id number]) Manual Assessments Soft Tissue Assessment Soft Tissue Mobility Assessment some B QL & ES tightness PT-OP-G Mobility & Gait Start: 10/15/22 17:05 Freq: Status: Active Protocol: Document 10/19/22 14:29 [facility] (Rec: 10/19/22 15:23 [facility] [id number]) OP Gait Assessment Comments Gait Comments lat lean R w/R WB PT-OP-J Posture/Palpation/Skin Start: 10/15/22 17:05 Freq: Status: Active Protocol: Document 10/19/22 14:29 [facility] (Rec: 10/19/22 15:23 [facility] [id number]) Posture Evaluation Comments Posture Comments left iliac crest higher, equal greater trochanters; L shoulder higher PT-OP-L Special Tests Start: 10/15/22 17:05 Freq: Status: Active Protocol: Document 10/19/22 14:29 [facility] (Rec: 10/19/22 15:23 [facility] [id number]) Special Tests Lumbar Spine Special Tests Straight Leg Raise Test Results 90 deg L: about 75 deg R PT-OP-M Strength Start: 10/15/22 17:05 Freq: Status: Active Protocol: Document 10/19/22 14:29 [facility] (Rec: 10/19/22 15:23 [facility] [id number]) Hip Strength Hip Manual Muscle Testing Right Flexion (L2) 3 Fair Extension (S1) 3+ Fair+ Abduction 4- Good- External Rotation 3 Fair Internal Rotation 4 Good Left Flexion (L2) 3 Fair Extension (S1) 3+ Fair+ Abduction 3 Fair External Rotation 3 Fair Internal Rotation 3+ Fair+ Knee Strength Knee Manual Muscle Testing Right Flexion (S2) 4- Good- Extension (L3) 3 Fair Left Flexion (S2) 3+ Fair+ Extension (L3) 3 Fair Ankle/Foot Strength Ankle and Foot Manual Muscle Testing Right Dorsiflexion (L4) 5 Normal Plantarflexion (S1) 5 Normal Left Dorsiflexion (L4) 5 Normal Plantarflexion (S1) 5 Normal Comments tested seated B PT-OP-Q Treatments Start: 10/15/22 17:05 Freq: Status: Active Protocol: Document 10/22/22 14:33 [facility] (Rec: 10/22/22 15:39 [facility] [id number]) Cardio Equipment Recumbent Elliptical ([employer]) Duration (Minutes) 5 Resistance 4 Seat Position 8 Gym Equipment Therapeutic Ball seated Ball Size/Color 65 cm Body Position seated Reps/Duration 15 B Comments marches Therapeutic Exercises Standing Exercises hip ext Side bilateral Equipment Used L1 Reps/Minutes 15 march Side bilateral Reps/Minutes 15 Comments rail as needed sidestep Side bilateral Equipment Used lvl 1 Reps/Minutes 20ft sit to stands Side bilateral Reps/Minutes 10 Neuro Re-Education Treatment Balance Activities tandem Details b trials foam Surface blue foam Comments WBOS, NBOS, staggered stance hurdles Details 6 hurdles Comments 1.fwd recip x6 2. sidestep x2 B PT-OP-T Assessment and Plan Start: 10/15/22 17:05 Freq: Status: Active Protocol: Document 10/22/22 14:33 [facility] (Rec: 10/22/22 15:39 [facility] [id number]) Physical Therapy Assessment Goals stairs Detention Goal (LTG) Pt will be able to go up/down stiars w/rail reciprocally w/ rail. LTG Duration 01/11/23 balance Impairment DGI 18/24; FGA Short Term Goal (STG) Pt will score at least 20/24 to show dec fall risk STG Duration 11/22/22 Detention Goal (LTG) Pt will score at least 23/50 on FGA to shwo dec fall risk LTG Duration 01/11/23 sit to stands Impairment 8 in 30 sec Blood Bank Specialist Goal (LTG) Pt will be able to do 11 sit to stands w/o knee pain in 30 sec to show improve strength and stability. LTG Duration 01/11/23 SANTANA Detention Goal (LTG) pt will score at least 50 to show improved balance and safe as outdoor and community ambulator LTG Duration 01/11/23 mobility Short Term Goal (STG) Pt will be able to reach overhead w/o inc back pain STG Duration 12/10 Blood Bank Specialist Goal (LTG) Pt will be able to bend over as needed at any point int the day w/o LBP LTG Duration 01/11/23 Assessment Summary Assessment Pt did an excellent job with all activities and was encourage to use counter at home to help stabilize. Pt did well with balance activities but was challenged by all. Notes no pain during session Physical Therapy Plan Frequency and Duration Frequency of Treatment 2x/Week Duration of treatment (weeks) 12 Plan of Care Start Date 10/19/22 Plan of Care End Date 01/11/23 Next Visit Focus/Plan Next Note Type Treatment Note Next Visit Plan Review HEP: sit to stands, side steps, tandem stance, alt hip ext, october; balance activities: hurdles, shuttle balance board, SL activities, EC activities
--- NOTE | 2022-10-29 09:45 | PT.OTN ---
Current Diagnoses Low back pain, unspecified (10/29/22) Repeated falls (10/29/22) Weakness (10/29/22) Wedge compression fracture of T11-T12 vertebra, sequela (10/29/22) Wedge compression fracture of first lumbar vertebra, initial encounter for closed fracture (10/29/22) Physical Therapy Treatment Note PT-OP-A Visit Information Start: 10/15/22 17:05 Freq: Status: Active Protocol: Document 10/29/22 08:21 [facility] (Rec: 10/29/22 09:45 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 (Rec: 10/19/22 15:23 [facility] [id number]) Current Condition History of Current Condition Onset Date past year Current Complaints falls, back pain d/t compression fx History of Current Condition Pt reports first fall (october 28 , she tripped on beadspread and hurt her shoulder. Did PT for shoulder. 2nd fall when she hit her sternum andhead on february 10 d/t missing a step on uneven and irregular.Last one , she missed a step going backwards and that was when she fractured her back 7. . She does have neuropathy in her feet. Pt reports she gets dizzy when gets up from bed and sometimes with rolling in bed. She feels like things are moving around in her head. Sometimes she gets spinning. She notes she gets the same thing when she moves her head around sometimes. Pt reports back is achey in the bad weather, but it isn't too bad at all. She also has a wrist injury from her fall and hurt her shoulder and then her 3rd fall made it worse. Lately her knees have been hurting. 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 NOw both hurt going up/down stairs but she hasn't seen anyone yet. She has been trying to be more cautious to avoid falling and has been trying not to be impulsive. She can't bend over in the mornings d/t her back. She also cannot reach or lift overhead d/t pain in back. Pt walks almost every day for about 2 miles. When in [place] in Aug, she walked 5 miles a day. pt was using a walking stick until Aug to walk with to help dec pressure in her back. Prior Treatments and Tests Lumbar CT: IMPRESSION: Acute appearing L1 compression fracture. Chronic appearing T11 compression fracture. Partially visualized splenic artery aneurysm versus calcified splenic cyst. Recommend CT scan of the abdomen with contrast for definitive characterization of the finding. Treatment Goals Patient/Caregiver Goals Help her with balance, not feel dizzy with activities, show her how to be more stable so she isn't tripping and falling, be able to reach overhead and bend over as needed w/o inc pain, be able to canoe; be able to do stairs comfortably PT-OP-C Subjective Start: 10/15/22 17:05 Freq: Status: Active Protocol: Document 10/29/22 08:21 [facility] (Rec: 10/29/22 09:45 [facility] [id number]) OP-PT Subjective Patient Comments Patient Comments Pt reports she has an ear infection which is throwing her off. She saw re: this already. PT-OP-D Balance Start: 10/15/22 17:05 Freq: Status: Active Protocol: Document 10/19/22 14:29 [facility] (Rec: 10/19/22 15:23 [facility] [id number]) Balance Tests Santana Balance Test Santana Balance Test Score 48 Single Limb Standing Single Limb- Right 2 sec Single Limb- Left 2 sec PT-OP-E Functional Tests Start: 10/15/22 17:05 Freq: Status: Active Protocol: Document 10/19/22 14:29 [facility] (Rec: 10/19/22 15:23 [facility] [id number]) Functional Tests 30 Second Sit to Stand Test Score 8 Comments dec control down; knee pain Dynamic Gait Index (DGI) Score 18/24 Five Times Sit to Stand Test Score 18 sec Comments dec control down; knee pain Functional Gait Assessment Score 18/30 PT-OP-F Manual Assessment Start: 10/15/22 17:05 Freq: Status: Active Protocol: Document 10/19/22 14:29 [facility] (Rec: 10/19/22 15:23 [facility] [id number]) Manual Assessments Soft Tissue Assessment Soft Tissue Mobility Assessment some B QL & ES tightness PT-OP-G Mobility & Gait Start: 10/15/22 17:05 Freq: Status: Active Protocol: Document 10/19/22 14:29 [facility] (Rec: 10/19/22 15:23 [facility] [id number]) OP Gait Assessment Comments Gait Comments lat lean R w/R WB PT-OP-J Posture/Palpation/Skin Start: 10/15/22 17:05 Freq: Status: Active Protocol: Document 10/19/22 14:29 [facility] (Rec: 10/19/22 15:23 [facility] [id number]) Posture Evaluation Comments Posture Comments left iliac crest higher, equal greater trochanters; L shoulder higher PT-OP-L Special Tests Start: 10/15/22 17:05 Freq: Status: Active Protocol: Document 10/19/22 14:29 [facility] (Rec: 10/19/22 15:23 [facility] [id number]) Special Tests Lumbar Spine Special Tests Straight Leg Raise Test Results 90 deg L: about 75 deg R PT-OP-M Strength Start: 10/15/22 17:05 Freq: Status: Active Protocol: Document 10/19/22 14:29 [facility] (Rec: 10/19/22 15:23 [facility] [id number]) Hip Strength Hip Manual Muscle Testing Right Flexion (L2) 3 Fair Extension (S1) 3+ Fair+ Abduction 4- Good- External Rotation 3 Fair Internal Rotation 4 Good Left Flexion (L2) 3 Fair Extension (S1) 3+ Fair+ Abduction 3 Fair External Rotation 3 Fair Internal Rotation 3+ Fair+ Knee Strength Knee Manual Muscle Testing Right Flexion (S2) 4- Good- Extension (L3) 3 Fair Left Flexion (S2) 3+ Fair+ Extension (L3) 3 Fair Ankle/Foot Strength Ankle and Foot Manual Muscle Testing Right Dorsiflexion (L4) 5 Normal Plantarflexion (S1) 5 Normal Left Dorsiflexion (L4) 5 Normal Plantarflexion (S1) 5 Normal Comments tested seated B PT-OP-Q Treatments Start: 10/15/22 17:05 Freq: Status: Active Protocol: Document 10/29/22 08:21 [facility] (Rec: 10/29/22 09:45 [facility] [id number]) Cardio Equipment Recumbent Elliptical (BiodAnevia) Duration (Minutes) 5 Resistance 6 Seat Position 8 Gym Equipment Therapeutic Ball seated Ball Size/Color 65 cm Body Position seated Reps/Duration 15 B Comments marches Therapeutic Exercises Standing Exercises DF/PF Side bilateral Reps/Minutes 25 hip ext Side bilateral Equipment Used L1 Reps/Minutes 2x10 Comments max cues for posture and slow and controlled march Side bilateral Reps/Minutes 20 Comments rail as needed sidestep Side bilateral Equipment Used lvl 1 Reps/Minutes 20ft sit to stands Side bilateral Reps/Minutes 12 Comments cues for slow decent Neuro Re-Education Treatment Balance Activities tilt board Comments f/b, lat: balance, wt shifts tandem Details b trials foam Surface blue foam Comments WBOS & NBOS w/ head turns and EC trials, staggered stance hurdles Details 6 hurdles Comments 1.fwd recip x6 2. sidestep x2 B PT-OP-T Assessment and Plan Start: 10/15/22 17:05 Freq: Status: Active Protocol: Document 10/29/22 08:21 [facility] (Rec: 10/29/22 09:45 [facility] [id number]) Physical Therapy Assessment Goals stairs Skilled Nursing Goal (LTG) Pt will be able to go up/down stiars w/rail reciprocally w/ rail. LTG Duration 01/11/23 balance Impairment DGI 18/24; FGA 18/30 Short Term Goal (STG) Pt will score at least 20/24 to show dec fall risk STG Duration 11/22/22 Roll Up Guider Operator Goal (LTG) Pt will score at least 23/50 on FGA to shwo dec fall risk LTG Duration 01/11/23 sit to stands Impairment 8 in 30 sec Roll Up Guider Operator Goal (LTG) Pt will be able to do 11 sit to stands w/o knee pain in 30 sec to show improve strength and stability. LTG Duration 01/11/23 [facility] Skilled Nursing Goal (LTG) pt will score at least 50 to show improved balance and safe as outdoor and community ambulator LTG Duration 01/11/23 mobility Short Term Goal (STG) Pt will be able to reach overhead w/o inc back pain STG Duration 12/10 Roll Up Guider Operator Goal (LTG) Pt will be able to bend over as needed at any point int the day w/o LBP LTG Duration 01/11/23 Assessment Summary Assessment Pt did well with balance. She was cahllenged by new task of balance board. She required cues throughout exercsies but was very receptive to changes for home. WIll need another review Physical Therapy Plan Frequency and Duration Frequency of Treatment 2x/Week Duration of treatment (weeks) 12 Plan of Care Start Date 10/19/22 Plan of Care End Date 01/11/23 Next Visit Focus/Plan Next Note Type Treatment Note Next Visit Plan Review HEP: sit to stands, side steps, tandem stance, alt hip ext, october; balance activities: hurdles, shuttle balance board, SL activities, EC activities
--- NOTE | 2022-11-02 15:45 | PT.OTN ---
Current Diagnoses Low back pain, unspecified (11/02/22) Repeated falls (11/02/22) Weakness (11/02/22) Wedge compression fracture of T11-T12 vertebra, sequela (11/02/22) Wedge compression fracture of first lumbar vertebra, initial encounter for closed fracture (11/02/22) Physical Therapy Treatment Note PT-OP-A Visit Information Start: 10/15/22 17:05 Freq: Status: Active Protocol: Document 11/02/22 14:40 [facility] (Rec: 11/02/22 15:43 [facility] [id number]) Out-Patient Physical Therapy Visit Information Visit Information Visit Type Treatment Note Visit Note 11/30 Visit Start Time 14:35 Visit Stop Time 15:20 Total Visit Minutes 45 Visit Number 4 Number of INFORMATION SECURITY CONSULTANT Visits 1 PT-OP-B Current Condition Start: 10/15/22 17:05 Freq: Status: Active Protocol: Document 10/19/22 14:29 [facility] (Rec: 10/19/22 15:23 [facility] [id number]) Current Condition History of Current Condition Onset Date past year Current Complaints falls, back pain d/t compression fx History of Current Condition Pt reports first fall (october 28 , she tripped on beadspread and hurt her shoulder. Did PT for shoulder. 2nd fall when she hit her sternum andhead on february 10 d/t missing a step on uneven and irregular.Last one , she missed a step going backwards and that was when she fractured her back 7. . She does have neuropathy in her feet. Pt reports she gets dizzy when gets up from bed and sometimes with rolling in bed. She feels like things are moving around in her head. Sometimes she gets spinning. She notes she gets the same thing when she moves her head around sometimes. Pt reports back is achey in the bad weather, but it isn't too bad at all. She also has a wrist injury from her fall and hurt her shoulder and then her 3rd fall made it worse. Lately her knees have been hurting. 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 NOw both hurt going up/down stairs but she hasn't seen anyone yet. She has been trying to be more cautious to avoid falling and has been trying not to be impulsive. She can't bend over in the mornings d/t her back. She also cannot reach or lift overhead d/t pain in back. Pt walks almost every day for about 2 miles. When in [place] in Aug, she walked 5 miles a day. pt was using a walking stick until Aug to walk with to help dec pressure in her back. Prior Treatments and Tests Lumbar CT: IMPRESSION: Acute appearing L1 compression fracture. Chronic appearing T11 compression fracture. Partially visualized splenic artery aneurysm versus calcified splenic cyst. Recommend CT scan of the abdomen with contrast for definitive characterization of the finding. Treatment Goals Patient/Caregiver Goals Help her with balance, not feel dizzy with activities, show her how to be more stable so she isn't tripping and falling, be able to reach overhead and bend over as needed w/o inc pain, be able to canoe; be able to do stairs comfortably PT-OP-C Subjective Start: 10/15/22 17:05 Freq: Status: Active Protocol: Document 11/02/22 14:40 [facility] (Rec: 11/02/22 15:43 [facility] [id number]) OP-PT Subjective Patient Comments Patient Comments Pt PT-OP-D Balance Start: 10/15/22 17:05 Freq: Status: Active Protocol: Document 10/19/22 14:29 [facility] (Rec: 10/19/22 15:23 [facility] [id number]) Balance Tests Santana Balance Test Santana Balance Test Score 48 Single Limb Standing Single Limb- Right 2 sec Single Limb- Left 2 sec PT-OP-E Functional Tests Start: 10/15/22 17:05 Freq: Status: Active Protocol: Document 10/19/22 14:29 [facility] (Rec: 10/19/22 15:23 [facility] [id number]) Functional Tests 30 Second Sit to Stand Test Score 8 Comments dec control down; knee pain Dynamic Gait Index (DGI) Score 18 Five Times Sit to Stand Test Score 18 sec Comments dec control down; knee pain Functional Gait Assessment Score 18 PT-OP-F Manual Assessment Start: 10/15/22 17:05 Freq: Status: Active Protocol: Document 10/19/22 14:29 [facility] (Rec: 10/19/22 15:23 [facility] [id number]) Manual Assessments Soft Tissue Assessment Soft Tissue Mobility Assessment some B QL & ES tightness PT-OP-G Mobility & Gait Start: 10/15/22 17:05 Freq: Status: Active Protocol: Document 10/19/22 14:29 [facility] (Rec: 10/19/22 15:23 [facility] [id number]) OP Gait Assessment Comments Gait Comments lat lean R w/R WB PT-OP-J Posture/Palpation/Skin Start: 10/15/22 17:05 Freq: Status: Active Protocol: Document 10/19/22 14:29 [facility] (Rec: 10/19/22 15:23 [facility] [id number]) Posture Evaluation Comments Posture Comments left iliac crest higher, equal greater trochanters; L shoulder higher PT-OP-L Special Tests Start: 10/15/22 17:05 Freq: Status: Active Protocol: Document 10/19/22 14:29 [facility] (Rec: 10/19/22 15:23 [facility] [id number]) Special Tests Lumbar Spine Special Tests Straight Leg Raise Test Results 90 deg L: about 75 deg R PT-OP-M Strength Start: 10/15/22 17:05 Freq: Status: Active Protocol: Document 10/19/22 14:29 [facility] (Rec: 10/19/22 15:23 [facility] [id number]) Hip Strength Hip Manual Muscle Testing Right Flexion (L2) 3 Fair Extension (S1) 3+ Fair+ Abduction 4- Good- External Rotation 3 Fair Internal Rotation 4 Good Left Flexion (L2) 3 Fair Extension (S1) 3+ Fair+ Abduction 3 Fair External Rotation 3 Fair Internal Rotation 3+ Fair+ Knee Strength Knee Manual Muscle Testing Right Flexion (S2) 4- Good- Extension (L3) 3 Fair Left Flexion (S2) 3+ Fair+ Extension (L3) 3 Fair Ankle/Foot Strength Ankle and Foot Manual Muscle Testing Right Dorsiflexion (L4) 5 Normal Plantarflexion (S1) 5 Normal Left Dorsiflexion (L4) 5 Normal Plantarflexion (S1) 5 Normal Comments tested seated B PT-OP-Q Treatments Start: 10/15/22 17:05 Freq: Status: Active Protocol: Document 11/02/22 14:40 [facility] (Rec: 11/02/22 15:43 [facility] [id number]) Cardio Equipment Recumbent Stepper (Sci-Fit) Duration (Minutes) 6 Resistance 1.0 Seat Position 8 Gym Equipment Therapeutic Ball seated Ball Size/Color 65 cm Body Position seated Reps/Duration 15 B Comments CW/CCW, marches Therapeutic Exercises Standing Exercises DF/PF Side bilateral Reps/Minutes 25 hip ext Side bilateral Equipment Used L1 Reps/Minutes 2x10 Comments max cues for posture and slow and controlled march Side bilateral Reps/Minutes 20 Comments rail as needed sidestep Side bilateral Equipment Used lvl 1 Reps/Minutes 20ft Comments cues for reaching through heel , slow eccentric sit to stands Side bilateral Reps/Minutes 2x12 Comments cues for slow decent, glute squeeze at top Neuro Re-Education Treatment Balance Activities tilt board Equipment hand rail prn Comments f/b, lat: balance, wt shifts, EC, balloon volleyball w/ PT Aide- pt's apprehension improves steadily tandem Details b trials Self-Care/Home Management Treatment Education Patient Education Fall Risk,Home Exercise Program,Posture,Safety Other Education -Discussed pt's negative self- talk in relation to balance and encouraged positive self- talk. -Explained how HEP ex's translate to functional mobility. -Added standing DF/PF to HEP - HO given. PT-OP-T Assessment and Plan Start: 10/15/22 17:05 Freq: Status: Active Protocol: Document 11/02/22 14:40 [facility] (Rec: 11/02/22 15:43 [facility] [id number]) Physical Therapy Assessment Impairments Impairments Activity Tolerance,Balance, Functional Activities, Functional Mobility,Gait,Pain, Posture,ROM,Soft Tissue Mobility,Strength Goals stairs No Experience Goal (LTG) Pt will be able to go up/down stiars w/rail reciprocally w/ rail. LTG Duration 01/11/23 balance Impairment DGI 18/24; FGA 18 Short Term Goal (STG) Pt will score at least 20/24 to show dec fall risk STG Duration 11/22/22 No Experience Goal (LTG) Pt will score at least 23/50 on FGA to shwo dec fall risk LTG Duration 01/11/23 sit to stands Impairment 8 in 30 sec No Experience Goal (LTG) Pt will be able to do 11 sit to stands w/o knee pain in 30 sec to show improve strength and stability. LTG Duration 01/11/23 [facility] Nursing [facility] Goal (LTG) pt will score at least 50 to show improved balance and safe as outdoor and community ambulator LTG Duration 01/11/23 mobility Short Term Goal (STG) Pt will be able to reach overhead w/o inc back pain STG Duration 12/10 No Experience Goal (LTG) Pt will be able to bend over as needed at any point int the day w/o LBP LTG Duration 01/11/23 Assessment Summary Assessment Pt requires cues for slow controlled eccentric phases with all home ex's. Pt's apprehension improves steadily on tilt board w/ cues for focal point and weightshifting - pt is able to balance for balloon volleyball w/ PT Aide this treatment on tilt board w / mediolateral weightshifting. Discussed pt's negative self- talk in relation to balance and encouraged positive self- talk. Explained how HEP ex's translate to functional mobility. Added standing DF/PF to HEP - HO given. Physical Therapy Plan Frequency and Duration Frequency of Treatment 2x/Week Duration of treatment (weeks) 12 Plan of Care Start Date 10/19/22 Plan of Care End Date 01/11/23 Therapeutic Interventions Therapeutic Interventions Aquatic Therapy,Balance Training,Gait Training,Home Exercise Program,Joint Mobilizations,Manual Therapy, Neuromuscular Re-education, Orthotic/Prosthetic Management ,Patient/Caregiver Education, Self-Care/Home Management,Soft Tissue Mobilization,Taping, Therapeutic Activities, Therapeutic Exercises, Vestibular Rehabilitation Modalities Cold Pack/Ice Massage,Electric Stimulation,Hot Packs, Ultrasound Next Visit Focus/Plan Next Note Type Treatment Note Next Visit Plan Review HEP: sit to stands, side steps, tandem stance, alt hip ext, october; balance activities: hurdles, shuttle balance board, SL activities, EC activities
--- NOTE | 2022-11-05 13:02 | PT.OTN ---
Current Diagnoses Low back pain, unspecified (11/05/22) Repeated falls (11/05/22) Weakness (11/05/22) Wedge compression fracture of T11-T12 vertebra, sequela (11/05/22) Wedge compression fracture of first lumbar vertebra, initial encounter for closed fracture (11/05/22) Physical Therapy Treatment Note PT-OP-A Visit Information Start: 10/15/22 17:05 Freq: Status: Active Protocol: Document 11/05/22 11:21 [facility] (Rec: 11/05/22 13:01 [facility] [id number]) Out-Patient Physical Therapy Visit Information Visit Information Visit Type Treatment Note Visit Note 12/30 Visit Start Time 11: Visit Stop Time 12:01 Total Visit Minutes 39 Visit Number 5 Number of SEISMOGRAPH SUPERVISOR Visits 0 PT-OP-B Current Condition Start: 10/15/22 17:05 Freq: Status: Active Protocol: Document 10/19/22 14:29 [facility] (Rec: 10/19/22 15:23 [facility] [id number]) Current Condition History of Current Condition Onset Date past year Current Complaints falls, back pain d/t compression fx History of Current Condition Pt reports first fall (october 28 , she tripped on beadspread and hurt her shoulder. Did PT for shoulder. 2nd fall when she hit her sternum andhead on february 10 d/t missing a step on uneven and irregular.Last one , she missed a step going backwards and that was when she fractured her back 7. . She does have neuropathy in her feet. Pt reports she gets dizzy when gets up from bed and sometimes with rolling in bed. She feels like things are moving around in her head. Sometimes she gets spinning. She notes she gets the same thing when she moves her head around sometimes. Pt reports back is achey in the bad weather, but it isn't too bad at all. She also has a wrist injury from her fall and hurt her shoulder and then her 3rd fall made it worse. Lately her knees have been hurting. 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 NOw both hurt going up/down stairs but she hasn't seen anyone yet. She has been trying to be more cautious to avoid falling and has been trying not to be impulsive. She can't bend over in the mornings d/t her back. She also cannot reach or lift overhead d/t pain in back. Pt walks almost every day for about 2 miles. When in [place] in Aug, she walked 5 miles a day. pt was using a walking stick until Aug to walk with to help dec pressure in her back. Prior Treatments and Tests Lumbar CT: IMPRESSION: Acute appearing L1 compression fracture. Chronic appearing T11 compression fracture. Partially visualized splenic artery aneurysm versus calcified splenic cyst. Recommend CT scan of the abdomen with contrast for definitive characterization of the finding. Treatment Goals Patient/Caregiver Goals Help her with balance, not feel dizzy with activities, show her how to be more stable so she isn't tripping and falling, be able to reach overhead and bend over as needed w/o inc pain, be able to canoe; be able to do stairs comfortably PT-OP-C Subjective Start: 10/15/22 17:05 Freq: Status: Active Protocol: Document 11/05/22 11:21 [facility] (Rec: 11/05/22 13:01 [facility] [id number]) OP-PT Subjective Patient Comments Patient Comments pt reports she was in the garden yesrday and back was a little sore. She feels like her balance is better PT-OP-D Balance Start: 10/15/22 17:05 Freq: Status: Active Protocol: Document 10/19/22 14:29 [facility] (Rec: 10/19/22 15:23 [facility] [id number]) Balance Tests Santana Balance Test Santana Balance Test Score 48 Single Limb Standing Single Limb- Right 2 sec Single Limb- Left 2 sec PT-OP-E Functional Tests Start: 10/15/22 17:05 Freq: Status: Active Protocol: Document 10/19/22 14:29 [facility] (Rec: 10/19/22 15:23 [facility] [id number]) Functional Tests 30 Second Sit to Stand Test Score 8 Comments dec control down; knee pain Dynamic Gait Index (DGI) Score 18/24 Five Times Sit to Stand Test Score 18 sec Comments dec control down; knee pain Functional Gait Assessment Score 18/30 PT-OP-F Manual Assessment Start: 10/15/22 17:05 Freq: Status: Active Protocol: Document 10/19/22 14:29 [facility] (Rec: 10/19/22 15:23 [facility] [id number]) Manual Assessments Soft Tissue Assessment Soft Tissue Mobility Assessment some B QL & ES tightness PT-OP-G Mobility & Gait Start: 10/15/22 17:05 Freq: Status: Active Protocol: Document 10/19/22 14:29 [facility] (Rec: 10/19/22 15:23 [facility] [id number]) OP Gait Assessment Comments Gait Comments lat lean R w/R WB PT-OP-J Posture/Palpation/Skin Start: 10/15/22 17:05 Freq: Status: Active Protocol: Document 10/19/22 14:29 [facility] (Rec: 10/19/22 15:23 [facility] [id number]) Posture Evaluation Comments Posture Comments left iliac crest higher, equal greater trochanters; L shoulder higher PT-OP-L Special Tests Start: 10/15/22 17:05 Freq: Status: Active Protocol: Document 10/19/22 14:29 [facility] (Rec: 10/19/22 15:23 [facility] [id number]) Special Tests Lumbar Spine Special Tests Straight Leg Raise Test Results 90 deg L: about 75 deg R PT-OP-M Strength Start: 10/15/22 17:05 Freq: Status: Active Protocol: Document 10/19/22 14:29 [facility] (Rec: 10/19/22 15:23 [facility] [id number]) Hip Strength Hip Manual Muscle Testing Right Flexion (L2) 3 Fair Extension (S1) 3+ Fair+ Abduction 4- Good- External Rotation 3 Fair Internal Rotation 4 Good Left Flexion (L2) 3 Fair Extension (S1) 3+ Fair+ Abduction 3 Fair External Rotation 3 Fair Internal Rotation 3+ Fair+ Knee Strength Knee Manual Muscle Testing Right Flexion (S2) 4- Good- Extension (L3) 3 Fair Left Flexion (S2) 3+ Fair+ Extension (L3) 3 Fair Ankle/Foot Strength Ankle and Foot Manual Muscle Testing Right Dorsiflexion (L4) 5 Normal Plantarflexion (S1) 5 Normal Left Dorsiflexion (L4) 5 Normal Plantarflexion (S1) 5 Normal Comments tested seated B PT-OP-Q Treatments Start: 10/15/22 17:05 Freq: Status: Active Protocol: Document 11/05/22 11:21 [facility] (Rec: 11/05/22 13:01 [facility] [id number]) Cardio Equipment Recumbent Elliptical (Kidos) Duration (Minutes) 5 Resistance 6 Seat Position 8 Gym Equipment Shuttle Balance blue clips Comments fwd & side: WBOS Therapeutic Ball seated Ball Size/Color 65 cm Body Position seated Reps/Duration 15 B ea Comments 1.marches 2. pelvic circles B Therapeutic Exercises Standing Exercises resisted walk Standing Exercise Name fwd/back Side bilateral Equipment Used red tband Reps/Minutes 20ft sidestep Side bilateral Equipment Used red band Reps/Minutes 20ft Comments cues for reaching through heel , slow eccentric Neuro Re-Education Treatment Balance Activities SLS Comments alt taps to 12 in step x10 B bosu Details standing balance tilt board Comments f/b, lat: balance, wt shifts foam Surface blue foam Comments WBOS & NBOS & staggered stance w/ head turns and EC trials hurdles Details 6 hurdles Comments 1.fwd recip x8 2. sidestep x2 B PT-OP-T Assessment and Plan Start: 10/15/22 17:05 Freq: Status: Active Protocol: Document 11/05/22 11:21 [facility] (Rec: 11/05/22 13:01 [facility] [id number]) Physical Therapy Assessment Goals stairs Long-Term Goal (LTG) Pt will be able to go up/down stiars w/rail reciprocally w/ rail. LTG Duration 01/11/23 balance Impairment DGI 18; FGA Short Term Goal (STG) Pt will score at least 20/24 to show dec fall risk STG Duration 11/22/22 Director Of Guidance Goal (LTG) Pt will score at least 23/50 on FGA to shwo dec fall risk LTG Duration 01/11/23 sit to stands Impairment 8 in 30 sec Director Of Guidance Goal (LTG) Pt will be able to do 11 sit to stands w/o knee pain in 30 sec to show improve strength and stability. LTG Duration 01/11/23 SANTANA Director Of Guidance Goal (LTG) pt will score at least 50 to show improved balance and safe as outdoor and community ambulator LTG Duration 01/11/23 mobility Short Term Goal (STG) Pt will be able to reach overhead w/o inc back pain STG Duration 12/10 Director Of Guidance Goal (LTG) Pt will be able to bend over as needed at any point int the day w/o LBP LTG Duration 01/11/23 Assessment Summary Assessment Pt did better with balance activities today and appeared more comfortable on unstable surfaces. she required cues re : posture throughout session Physical Therapy Plan Frequency and Duration Frequency of Treatment 2x/Week Duration of treatment (weeks) 12 Plan of Care Start Date 10/19/22 Plan of Care End Date 01/11/23 Next Visit Focus/Plan Next Note Type Treatment Note Next Visit Plan Advance balance and strength
--- NOTE | 2022-11-09 17:28 | PT.OTN ---
Current Diagnoses Low back pain, unspecified (11/09/22) Repeated falls (11/09/22) Weakness (11/09/22) Wedge compression fracture of T11-T12 vertebra, sequela (11/09/22) Wedge compression fracture of first lumbar vertebra, initial encounter for closed fracture (11/09/22) Physical Therapy Treatment Note PT-OP-A Visit Information Start: 10/15/22 17:05 Freq: Status: Active Protocol: Document 11/09/22 14:39 [facility] (Rec: 11/09/22 17:23 [facility] [id number]) Out-Patient Physical Therapy Visit Information Visit Information Visit Type Treatment Note Visit Note 01/30 Visit Start Time 14:38 Visit Stop Time 15:25 Total Visit Minutes 47 Visit Number 6 Number of BIOMEDICAL REPAIR TECHNICIAN Visits 1 PT-OP-B Current Condition Start: 10/15/22 17:05 Freq: Status: Active Protocol: Document 10/19/22 14:29 [facility] (Rec: 10/19/22 15:23 [facility] [id number]) Current Condition History of Current Condition Onset Date past year Current Complaints falls, back pain d/t compression fx History of Current Condition Pt reports first fall (october 28 , she tripped on beadspread and hurt her shoulder. Did PT for shoulder. 2nd fall when she hit her sternum andhead on february 10 d/t missing a step on uneven and irregular.Last one , she missed a step going backwards and that was when she fractured her back 7. . She does have neuropathy in her feet. Pt reports she gets dizzy when gets up from bed and sometimes with rolling in bed. She feels like things are moving around in her head. Sometimes she gets spinning. She notes she gets the same thing when she moves her head around sometimes. Pt reports back is achey in the bad weather, but it isn't too bad at all. She also has a wrist injury from her fall and hurt her shoulder and then her 3rd fall made it worse. Lately her knees have been hurting. 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 NOw both hurt going up/down stairs but she hasn't seen anyone yet. She has been trying to be more cautious to avoid falling and has been trying not to be impulsive. She can't bend over in the mornings d/t her back. She also cannot reach or lift overhead d/t pain in back. Pt walks almost every day for about 2 miles. When in [place] in Aug, she walked 5 miles a day. pt was using a walking stick until Aug to walk with to help dec pressure in her back. Prior Treatments and Tests Lumbar CT: IMPRESSION: Acute appearing L1 compression fracture. Chronic appearing T11 compression fracture. Partially visualized splenic artery aneurysm versus calcified splenic cyst. Recommend CT scan of the abdomen with contrast for definitive characterization of the finding. Treatment Goals Patient/Caregiver Goals Help her with balance, not feel dizzy with activities, show her how to be more stable so she isn't tripping and falling, be able to reach overhead and bend over as needed w/o inc pain, be able to canoe; be able to do stairs comfortably PT-OP-C Subjective Start: 10/15/22 17:05 Freq: Status: Active Protocol: Document 11/09/22 14:39 [facility] (Rec: 11/09/22 17:23 [facility] [id number]) OP-PT Subjective Patient Comments Patient Comments Pt reports she has been working in her garden much more which is uneven and thinks her balance is getting better. She has been doing her home ex's. PT-OP-D Balance Start: 10/15/22 17:05 Freq: Status: Active Protocol: Document 10/19/22 14:29 [facility] (Rec: 10/19/22 15:23 [facility] [id number]) Balance Tests Santana Balance Test Santana Balance Test Score 48 Single Limb Standing Single Limb- Right 2 sec Single Limb- Left 2 sec PT-OP-E Functional Tests Start: 10/15/22 17:05 Freq: Status: Active Protocol: Document 10/19/22 14:29 [facility] (Rec: 10/19/22 15:23 [facility] [id number]) Functional Tests 30 Second Sit to Stand Test Score 8 Comments dec control down; knee pain Dynamic Gait Index (DGI) Score 18/24 Five Times Sit to Stand Test Score 18 sec Comments dec control down; knee pain Functional Gait Assessment Score 18/30 PT-OP-F Manual Assessment Start: 10/15/22 17:05 Freq: Status: Active Protocol: Document 10/19/22 14:29 [facility] (Rec: 10/19/22 15:23 [facility] [id number]) Manual Assessments Soft Tissue Assessment Soft Tissue Mobility Assessment some B QL & ES tightness PT-OP-G Mobility & Gait Start: 10/15/22 17:05 Freq: Status: Active Protocol: Document 10/19/22 14:29 [facility] (Rec: 10/19/22 15:23 [facility] [id number]) OP Gait Assessment Comments Gait Comments lat lean R w/R WB PT-OP-J Posture/Palpation/Skin Start: 10/15/22 17:05 Freq: Status: Active Protocol: Document 10/19/22 14:29 [facility] (Rec: 10/19/22 15:23 [facility] [id number]) Posture Evaluation Comments Posture Comments left iliac crest higher, equal greater trochanters; L shoulder higher PT-OP-L Special Tests Start: 10/15/22 17:05 Freq: Status: Active Protocol: Document 10/19/22 14:29 [facility] (Rec: 10/19/22 15:23 [facility] [id number]) Special Tests Lumbar Spine Special Tests Straight Leg Raise Test Results 90 deg L: about 75 deg R PT-OP-M Strength Start: 10/15/22 17:05 Freq: Status: Active Protocol: Document 10/19/22 14:29 [facility] (Rec: 10/19/22 15:23 [facility] [id number]) Hip Strength Hip Manual Muscle Testing Right Flexion (L2) 3 Fair Extension (S1) 3+ Fair+ Abduction 4- Good- External Rotation 3 Fair Internal Rotation 4 Good Left Flexion (L2) 3 Fair Extension (S1) 3+ Fair+ Abduction 3 Fair External Rotation 3 Fair Internal Rotation 3+ Fair+ Knee Strength Knee Manual Muscle Testing Right Flexion (S2) 4- Good- Extension (L3) 3 Fair Left Flexion (S2) 3+ Fair+ Extension (L3) 3 Fair Ankle/Foot Strength Ankle and Foot Manual Muscle Testing Right Dorsiflexion (L4) 5 Normal Plantarflexion (S1) 5 Normal Left Dorsiflexion (L4) 5 Normal Plantarflexion (S1) 5 Normal Comments tested seated B PT-OP-Q Treatments Start: 10/15/22 17:05 Freq: Status: Active Protocol: Document 11/09/22 14:39 [facility] (Rec: 11/09/22 17:23 [facility] [id number]) Cardio Equipment Recumbent Bicycle Duration (Minutes) 6 Resistance 3 Seat Position 5 Other lumbar cushion Gym Equipment Shuttle Balance blue clips Comments fwd: WBOS cue to hold board still x2 - able to hold still after ~20s-30s Staggered stance Avtar with weightshifting Therapeutic Exercises Standing Exercises resisted walk Standing Exercise Name fwd/back Side bilateral Equipment Used red tband Reps/Minutes 3x 10ft DF/PF Side bilateral Reps/Minutes 25 Comments cues for vertical movment only , less a/p weightshifting hip ext Side bilateral Equipment Used red band Reps/Minutes x10 ea Comments initial cues for controlled movement w/ glute focus sidestep Side bilateral Equipment Used red band Reps/Minutes 20ft Comments cues for reaching through heel , slow eccentric Neuro Re-Education Treatment Balance Activities SLS Equipment mirror, // bars Comments alt taps to 12 in step x10 B, SOCIAL AND HUMAN SERVICES ASSISTANT prn bosu Details standing balance tandem Details b trials hurdles Details 6 hurdles Equipment mirror, // bars Comments 1.fwd recip x8 Self-Care/Home Management Treatment Education Patient Education Fall Risk,Home Exercise Program,Posture,Safety Other Education -Explained role of proprioception and ankle strategies in balance. -Reviewed pt's negative self- talk in relation to balance and encouraged positive self- talk. PT-OP-T Assessment and Plan Start: 10/15/22 17:05 Freq: Status: Active Protocol: Document 11/09/22 14:39 [facility] (Rec: 11/09/22 17:23 [facility] [id number]) Physical Therapy Assessment Goals stairs Skilled Nursing Goal (LTG) Pt will be able to go up/down stiars w/rail reciprocally w/ rail. LTG Duration 01/11/23 balance Impairment DGI 18/24; FGA 1830 Short Term Goal (STG) Pt will score at least 20/24 to show dec fall risk STG Duration 11/22/22 Skilled Nursing Goal (LTG) Pt will score at least 23/50 on FGA to shwo dec fall risk LTG Duration 01/11/23 sit to stands Impairment 8 in 30 sec Impregnating Machine Operator Goal (LTG) Pt will be able to do 11 sit to stands w/o knee pain in 30 sec to show improve strength and stability. LTG Duration 01/11/23 SANTANA Impregnating Machine Operator Goal (LTG) pt will score at least 50 to show improved balance and safe as outdoor and community ambulator LTG Duration 01/11/23 mobility Short Term Goal (STG) Pt will be able to reach overhead w/o inc back pain STG Duration 12/10 Impregnating Machine Operator Goal (LTG) Pt will be able to bend over as needed at any point int the day w/o LBP LTG Duration 01/11/23 Assessment Summary Assessment Pt requries consistent cues for upright posture and glute activation throughout treatment session, but demonstrates improving self- awareness and less apprehension with education and repetition. Pt is better able to clear forward steps over hurdles with visual feedback. Physical Therapy Plan Frequency and Duration Frequency of Treatment 2x/Week Duration of treatment (weeks) 12 Plan of Care Start Date 10/19/22 Plan of Care End Date 01/11/23 Therapeutic Interventions Therapeutic Interventions Aquatic Therapy,Balance Training,Gait Training,Home Exercise Program,Joint Mobilizations,Manual Therapy, Neuromuscular Re-education, Orthotic/Prosthetic Management ,Patient/Caregiver Education, Self-Care/Home Management,Soft Tissue Mobilization,Taping, Therapeutic Activities, Therapeutic Exercises, Vestibular Rehabilitation Modalities Cold Pack/Ice Massage,Electric Stimulation,Hot Packs, Ultrasound Next Visit Focus/Plan Next Note Type Treatment Note Next Visit Plan Advance balance and strength
--- NOTE | 2022-11-12 15:16 | PT.OTN ---
Current Diagnoses Low back pain, unspecified (11/12/22) Repeated falls (11/12/22) Weakness (11/12/22) Wedge compression fracture of T11-T12 vertebra, sequela (11/12/22) Wedge compression fracture of first lumbar vertebra, initial encounter for closed fracture (11/12/22) Physical Therapy Treatment Note PT-OP-A Visit Information Start: 10/15/22 17:05 Freq: Status: Active Protocol: Document 11/12/22 14:39 [facility] (Rec: 11/12/22 15:16 [facility] [id number]) Out-Patient Physical Therapy Visit Information Visit Information Visit Type Treatment Note Visit Note 03/01 Visit Start Time 14:33 Visit Stop Time 15:14 Total Visit Minutes 41 Visit Number 7 Number of SENIOR CONSTRUCTION PROJECT MANAGER Visits 0 PT-OP-B Current Condition Start: 10/15/22 17:05 Freq: Status: Active Protocol: Document 10/19/22 14:29 [facility] (Rec: 10/19/22 15:23 [facility] [id number]) Current Condition History of Current Condition Onset Date past year Current Complaints falls, back pain d/t compression fx History of Current Condition Pt reports first fall (october 28 , she tripped on beadspread and hurt her shoulder. Did PT for shoulder. 2nd fall when she hit her sternum andhead on february 10 d/t missing a step on uneven and irregular.Last one , she missed a step going backwards and that was when she fractured her back . She does have neuropathy in her feet. Pt reports she gets dizzy when gets up from bed and sometimes with rolling in bed. She feels like things are moving around in her head. Sometimes she gets spinning. She notes she gets the same thing when she moves her head around sometimes. Pt reports back is achey in the bad weather, but it isn't too bad at all. She also has a wrist injury from her fall and hurt her shoulder and then her 3rd fall made it worse. Lately her knees have been hurting. 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 NOw both hurt going up/down stairs but she hasn't seen anyone yet. She has been trying to be more cautious to avoid falling and has been trying not to be impulsive. She can't bend over in the mornings d/t her back. She also cannot reach or lift overhead d/t pain in back. Pt walks almost every day for about 2 miles. When in [place] in Aug, she walked 5 miles a day. pt was using a walking stick until Aug to walk with to help dec pressure in her back. Prior Treatments and Tests Lumbar CT: IMPRESSION: Acute appearing L1 compression fracture. Chronic appearing T11 compression fracture. Partially visualized splenic artery aneurysm versus calcified splenic cyst. Recommend CT scan of the abdomen with contrast for definitive characterization of the finding. Treatment Goals Patient/Caregiver Goals Help her with balance, not feel dizzy with activities, show her how to be more stable so she isn't tripping and falling, be able to reach overhead and bend over as needed w/o inc pain, be able to canoe; be able to do stairs comfortably PT-OP-C Subjective Start: 10/15/22 17:05 Freq: Status: Active Protocol: Document 11/12/22 14:39 [facility] (Rec: 11/12/22 15:16 [facility] [id number]) OP-PT Subjective Patient Comments Patient Comments no back pain recently PT-OP-D Balance Start: 10/15/22 17:05 Freq: Status: Active Protocol: Document 10/19/22 14:29 [facility] (Rec: 10/19/22 15:23 [facility] [id number]) Balance Tests Santana Balance Test Santana Balance Test Score 48 Single Limb Standing Single Limb- Right 2 sec Single Limb- Left 2 sec PT-OP-E Functional Tests Start: 10/15/22 17:05 Freq: Status: Active Protocol: Document 10/19/22 14:29 [facility] (Rec: 10/19/22 15:23 [facility] [id number]) Functional Tests 30 Second Sit to Stand Test Score 8 Comments dec control down; knee pain Dynamic Gait Index (DGI) Score 18/24 Five Times Sit to Stand Test Score 18 sec Comments dec control down; knee pain Functional Gait Assessment Score 1830 PT-OP-F Manual Assessment Start: 10/15/22 17:05 Freq: Status: Active Protocol: Document 10/19/22 14:29 [facility] (Rec: 10/19/22 15:23 [facility] [id number]) Manual Assessments Soft Tissue Assessment Soft Tissue Mobility Assessment some B QL & ES tightness PT-OP-G Mobility & Gait Start: 10/15/22 17:05 Freq: Status: Active Protocol: Document 10/19/22 14:29 [facility] (Rec: 10/19/22 15:23 [facility] [id number]) OP Gait Assessment Comments Gait Comments lat lean R w/R WB PT-OP-J Posture/Palpation/Skin Start: 10/15/22 17:05 Freq: Status: Active Protocol: Document 10/19/22 14:29 [facility] (Rec: 10/19/22 15:23 [facility] [id number]) Posture Evaluation Comments Posture Comments left iliac crest higher, equal greater trochanters; L shoulder higher PT-OP-L Special Tests Start: 10/15/22 17:05 Freq: Status: Active Protocol: Document 10/19/22 14:29 [facility] (Rec: 10/19/22 15:23 [facility] [id number]) Special Tests Lumbar Spine Special Tests Straight Leg Raise Test Results 90 deg L: about 75 deg R PT-OP-M Strength Start: 10/15/22 17:05 Freq: Status: Active Protocol: Document 10/19/22 14:29 [facility] (Rec: 10/19/22 15:23 [facility] [id number]) Hip Strength Hip Manual Muscle Testing Right Flexion (L2) 3 Fair Extension (S1) 3+ Fair+ Abduction 4- Good- External Rotation 3 Fair Internal Rotation 4 Good Left Flexion (L2) 3 Fair Extension (S1) 3+ Fair+ Abduction 3 Fair External Rotation 3 Fair Internal Rotation 3+ Fair+ Knee Strength Knee Manual Muscle Testing Right Flexion (S2) 4- Good- Extension (L3) 3 Fair Left Flexion (S2) 3+ Fair+ Extension (L3) 3 Fair Ankle/Foot Strength Ankle and Foot Manual Muscle Testing Right Dorsiflexion (L4) 5 Normal Plantarflexion (S1) 5 Normal Left Dorsiflexion (L4) 5 Normal Plantarflexion (S1) 5 Normal Comments tested seated B PT-OP-Q Treatments Start: 10/15/22 17:05 Freq: Status: Active Protocol: Document 11/12/22 14:39 [facility] (Rec: 11/12/22 15:16 [facility] [id number]) Cardio Equipment Recumbent Elliptical (Biodex) Duration (Minutes) 6 Resistance 6 Seat Position 8 Gym Equipment Shuttle Balance blue clips Comments fwd & side: WBOS & NBOS fwd: staggered stnce B Therapeutic Ball seated Ball Size/Color 65 cm Body Position seated Reps/Duration 15 B ea Comments 1.marches 2. pelvic circles B 3. kicks B Neuro Re-Education Treatment Balance Activities SLS Comments alt taps to 12 in step x10 B bosu Details standing balance tilt board Comments f/b, lat: balance, wt shifts tandem Reps/Duration 2x20ft ea Comments 1. tandem walk on line w/ fingers on bar 2. fwd on line foam Surface blue foam Comments WBOS & NBOS & staggered stance w/ head turns and EC trials hurdles Details 6 hurdles Equipment bar prn Comments 1.fwd recip x2; fwd recip w/2 blue foam x2; fwd recip w/blue foams and green foams x2; fwd recip w/2 blue foam ovals, 2 green foam ovals, blue square foam & black tpad x2 2. sidestep x2 B PT-OP-T Assessment and Plan Start: 10/15/22 17:05 Freq: Status: Active Protocol: Document 11/12/22 14:39 [facility] (Rec: 11/12/22 15:16 [facility] [id number]) Physical Therapy Assessment Goals stairs Manager Environmental Health Goal (LTG) Pt will be able to go up/down stiars w/rail reciprocally w/ rail. LTG Duration 01/11/23 balance Impairment DGI 18/24; FGA Short Term Goal (STG) Pt will score at least 20/24 to show dec fall risk STG Duration 11/22/22 Care Home Goal (LTG) Pt will score at least 23/50 on FGA to shwo dec fall risk LTG Duration 01/11/23 sit to stands Impairment 8 in 30 sec Manager Environmental Health Goal (LTG) Pt will be able to do 11 sit to stands w/o knee pain in 30 sec to show improve strength and stability. LTG Duration 01/11/23 SANTANA Manager Environmental Health Goal (LTG) pt will score at least 50 to show improved balance and safe as outdoor and community ambulator LTG Duration 01/11/23 mobility Short Term Goal (STG) Pt will be able to reach overhead w/o inc back pain STG Duration 12/10 Manager Environmental Health Goal (LTG) Pt will be able to bend over as needed at any point int the day w/o LBP LTG Duration 01/11/23 Assessment Summary Assessment Pt required less cues for posture today. She demonstrated improved balance by ability to participate in more difficult activiteis today. Physical Therapy Plan Frequency and Duration Frequency of Treatment 2x/Week Duration of treatment (weeks) 12 Plan of Care Start Date 10/19/22 Plan of Care End Date 01/11/23 Next Visit Focus/Plan Next Note Type Treatment Note Next Visit Plan Advance balance and strength; blue clips w/balloon volley
--- NOTE | 2022-11-19 11:16 | PT.OTN ---
Current Diagnoses Low back pain, unspecified (11/19/22) Repeated falls (11/19/22) Weakness (11/19/22) Wedge compression fracture of T11-T12 vertebra, sequela (11/19/22) Wedge compression fracture of first lumbar vertebra, initial encounter for closed fracture (11/19/22) Physical Therapy Treatment Note PT-OP-A Visit Information Start: 10/15/22 17:05 Freq: Status: Active Protocol: Document 11/19/22 10:30 [facility] (Rec: 11/19/22 11:16 [facility] [id number]) Out-Patient Physical Therapy Visit Information Visit Information Visit Type Treatment Note Visit Note 04/01 Visit Start Time 10:30 Visit Stop Time 11:15 Total Visit Minutes 45 Visit Number 8 Number of FRIT COATER Visits 0 PT-OP-B Current Condition Start: 10/15/22 17:05 Freq: Status: Active Protocol: Document 10/19/22 14:29 [facility] (Rec: 10/19/22 15:23 [facility] [id number]) Current Condition History of Current Condition Onset Date past year Current Complaints falls, back pain d/t compression fx History of Current Condition Pt reports first fall (october 28 , she tripped on beadspread and hurt her shoulder. Did PT for shoulder. 2nd fall when she hit her sternum andhead on february 10 d/t missing a step on uneven and irregular.Last one , she missed a step going backwards and that was when she fractured her back 7. . She does have neuropathy in her feet. Pt reports she gets dizzy when gets up from bed and sometimes with rolling in bed. She feels like things are moving around in her head. Sometimes she gets spinning. She notes she gets the same thing when she moves her head around sometimes. Pt reports back is achey in the bad weather, but it isn't too bad at all. She also has a wrist injury from her fall and hurt her shoulder and then her 3rd fall made it worse. Lately her knees have been hurting. 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 NOw both hurt going up/down stairs but she hasn't seen anyone yet. She has been trying to be more cautious to avoid falling and has been trying not to be impulsive. She can't bend over in the mornings d/t her back. She also cannot reach or lift overhead d/t pain in back. Pt walks almost every day for about 2 miles. When in [place] in Aug, she walked 5 miles a day. pt was using a walking stick until Aug to walk with to help dec pressure in her back. Prior Treatments and Tests Lumbar CT: IMPRESSION: Acute appearing L1 compression fracture. Chronic appearing T11 compression fracture. Partially visualized splenic artery aneurysm versus calcified splenic cyst. Recommend CT scan of the abdomen with contrast for definitive characterization of the finding. Treatment Goals Patient/Caregiver Goals Help her with balance, not feel dizzy with activities, show her how to be more stable so she isn't tripping and falling, be able to reach overhead and bend over as needed w/o inc pain, be able to canoe; be able to do stairs comfortably PT-OP-C Subjective Start: 10/15/22 17:05 Freq: Status: Active Protocol: Document 11/19/22 10:30 [facility] (Rec: 11/19/22 11:16 [facility] [id number]) OP-PT Subjective Patient Comments Patient Comments Notes she has been seeing some good improvements since starting PT. PT-OP-D Balance Start: 10/15/22 17:05 Freq: Status: Active Protocol: Document 10/19/22 14:29 [facility] (Rec: 10/19/22 15:23 [facility] [id number]) Balance Tests Santana Balance Test Santana Balance Test Score 48 Single Limb Standing Single Limb- Right 2 sec Single Limb- Left 2 sec PT-OP-E Functional Tests Start: 10/15/22 17:05 Freq: Status: Active Protocol: Document 10/19/22 14:29 [facility] (Rec: 10/19/22 15:23 [facility] [id number]) Functional Tests 30 Second Sit to Stand Test Score 8 Comments dec control down; knee pain Dynamic Gait Index (DGI) Score 18 Five Times Sit to Stand Test Score 18 sec Comments dec control down; knee pain Functional Gait Assessment Score 18 PT-OP-F Manual Assessment Start: 10/15/22 17:05 Freq: Status: Active Protocol: Document 10/19/22 14:29 [facility] (Rec: 10/19/22 15:23 [facility] [id number]) Manual Assessments Soft Tissue Assessment Soft Tissue Mobility Assessment some B QL & ES tightness PT-OP-G Mobility & Gait Start: 10/15/22 17:05 Freq: Status: Active Protocol: Document 10/19/22 14:29 [facility] (Rec: 10/19/22 15:23 [facility] [id number]) OP Gait Assessment Comments Gait Comments lat lean R w/R WB PT-OP-J Posture/Palpation/Skin Start: 10/15/22 17:05 Freq: Status: Active Protocol: Document 10/19/22 14:29 [facility] (Rec: 10/19/22 15:23 [facility] [id number]) Posture Evaluation Comments Posture Comments left iliac crest higher, equal greater trochanters; L shoulder higher PT-OP-L Special Tests Start: 10/15/22 17:05 Freq: Status: Active Protocol: Document 10/19/22 14:29 [facility] (Rec: 10/19/22 15:23 [facility] [id number]) Special Tests Lumbar Spine Special Tests Straight Leg Raise Test Results 90 deg L: about 75 deg R PT-OP-M Strength Start: 10/15/22 17:05 Freq: Status: Active Protocol: Document 10/19/22 14:29 [facility] (Rec: 10/19/22 15:23 [facility] [id number]) Hip Strength Hip Manual Muscle Testing Right Flexion (L2) 3 Fair Extension (S1) 3+ Fair+ Abduction 4- Good- External Rotation 3 Fair Internal Rotation 4 Good Left Flexion (L2) 3 Fair Extension (S1) 3+ Fair+ Abduction 3 Fair External Rotation 3 Fair Internal Rotation 3+ Fair+ Knee Strength Knee Manual Muscle Testing Right Flexion (S2) 4- Good- Extension (L3) 3 Fair Left Flexion (S2) 3+ Fair+ Extension (L3) 3 Fair Ankle/Foot Strength Ankle and Foot Manual Muscle Testing Right Dorsiflexion (L4) 5 Normal Plantarflexion (S1) 5 Normal Left Dorsiflexion (L4) 5 Normal Plantarflexion (S1) 5 Normal Comments tested seated B PT-OP-Q Treatments Start: 10/15/22 17:05 Freq: Status: Active Protocol: Document 11/19/22 10:30 [facility] (Rec: 11/19/22 11:16 [facility] [id number]) Cardio Equipment Recumbent Elliptical (DotGT) Duration (Minutes) 6 Resistance 6 Seat Position 7 Gym Equipment Shuttle Balance blue clips Comments WBOS, Tandem stance, head turns, EO/EC Therapeutic Ball seated Ball Size/Color 65 cm Body Position seated Reps/Duration 15 B ea Comments 1.marches 2. pelvic circles B Therapeutic Exercises Standing Exercises resisted walk Standing Exercise Name fwd/back Side bilateral Equipment Used red tband Reps/Minutes 3x 10ft hip ext Side bilateral Equipment Used red band Reps/Minutes x10 ea Comments initial cues for controlled movement w/ glute focus sidestep Side bilateral Equipment Used red band Reps/Minutes 20ft Comments cues for reaching through heel , slow eccentric Neuro Re-Education Treatment Balance Activities SLS Details SLS Equipment // bars tilt board Comments f/b, lat: balance, wt shifts tandem Reps/Duration 2x20ft ea Comments 1. tandem walk on line w/ fingers on bar 2. fwd on line hurdles Details 6 hurdles, foam Comments Fwd, Tandem, side-stepping PT-OP-T Assessment and Plan Start: 10/15/22 17:05 Freq: Status: Active Protocol: Document 11/19/22 10:30 [facility] (Rec: 11/19/22 11:16 [facility] [id number]) Physical Therapy Assessment Goals stairs Detention Goal (LTG) Pt will be able to go up/down stiars w/rail reciprocally w/ rail. LTG Duration 01/11/23 balance Impairment DGI 18; FGA Short Term Goal (STG) Pt will score at least 20/24 to show dec fall risk STG Duration 11/22/22 Detention Goal (LTG) Pt will score at least 23/50 on FGA to shwo dec fall risk LTG Duration 01/11/23 sit to stands Impairment 8 in 30 sec Detention Goal (LTG) Pt will be able to do 11 sit to stands w/o knee pain in 30 sec to show improve strength and stability. LTG Duration 01/11/23 SANTANA Detention Goal (LTG) pt will score at least 50 to show improved balance and safe as outdoor and community ambulator LTG Duration 01/11/23 mobility Short Term Goal (STG) Pt will be able to reach overhead w/o inc back pain STG Duration 12/10 Global Compensation Analyst Goal (LTG) Pt will be able to bend over as needed at any point int the day w/o LBP LTG Duration 01/11/23 Assessment Summary Assessment Pt feeling better overall about her balance, discussed importance of continuing to challenge balance safely at home. Did well with additional challenges, including addition of foam to hurdles, but tends to overly rely on UE assist instead of using LEs to stabilize herself. Physical Therapy Plan Frequency and Duration Frequency of Treatment 2x/Week Duration of treatment (weeks) 12 Plan of Care Start Date 10/19/22 Plan of Care End Date 01/11/23 Therapeutic Interventions Therapeutic Interventions Aquatic Therapy,Balance Training,Gait Training,Home Exercise Program,Joint Mobilizations,Manual Therapy, Neuromuscular Re-education, Orthotic/Prosthetic Management ,Patient/Caregiver Education, Self-Care/Home Management,Soft Tissue Mobilization,Taping, Therapeutic Activities, Therapeutic Exercises, Vestibular Rehabilitation Modalities Cold Pack/Ice Massage,Electric Stimulation,Hot Packs, Ultrasound Next Visit Focus/Plan Next Note Type Treatment Note Next Visit Plan Advance balance and strength; blue clips w/balloon volley
--- NOTE | 2022-11-25 15:16 | PT.OTN ---
Current Diagnoses Low back pain, unspecified (11/25/22) Repeated falls (11/25/22) Weakness (11/25/22) Wedge compression fracture of T11-T12 vertebra, sequela (11/25/22) Wedge compression fracture of first lumbar vertebra, initial encounter for closed fracture (11/25/22) Physical Therapy Treatment Note PT-OP-A Visit Information Start: 10/15/22 17:05 Freq: Status: Active Protocol: Document 11/25/22 14:38 [facility] (Rec: 11/25/22 15:16 [facility] [id number]) Out-Patient Physical Therapy Visit Information Visit Information Visit Type Progress Note Visit Note 09/01 Visit Start Time 14:32 Visit Stop Time 15:12 Total Visit Minutes 40 Visit Number 9 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 Did PT for shoulder. 2nd fall when she hit her sternum andhead on february 10 d/t missing a step on uneven and irregular.Last one , she missed a step going backwards and that was when she fractured her back 7. . She does have neuropathy in her feet. Pt reports she gets dizzy when gets up from bed and sometimes with rolling in bed. She feels like things are moving around in her head. Sometimes she gets spinning. She notes she gets the same thing when she moves her head around sometimes. Pt reports back is achey in the bad weather, but it isn't too bad at all. She also has a wrist injury from her fall and hurt her shoulder and then her 3rd fall made it worse. Lately her knees have been hurting. 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 NOw both hurt going up/down stairs but she hasn't seen anyone yet. She has been trying to be more cautious to avoid falling and has been trying not to be impulsive. She can't bend over in the mornings d/t her back. She also cannot reach or lift overhead d/t pain in back. Pt walks almost every day for about 2 miles. When in [place] in Aug, she walked 5 miles a day. pt was using a walking stick until Aug to walk with to help dec pressure in her back. Prior Treatments and Tests Lumbar CT: IMPRESSION: Acute appearing L1 compression fracture. Chronic appearing T11 compression fracture. Partially visualized splenic artery aneurysm versus calcified splenic cyst. Recommend CT scan of the abdomen with contrast for definitive characterization of the finding. Treatment Goals Patient/Caregiver Goals Help her with balance, not feel dizzy with activities, show her how to be more stable so she isn't tripping and falling, be able to reach overhead and bend over as needed w/o inc pain, be able to canoe; be able to do stairs comfortably PT-OP-C Subjective Start: 10/15/22 17:05 Freq: Status: Active Protocol: Document 11/25/22 14:38 [facility] (Rec: 11/25/22 15:16 [facility] [id number]) OP-PT Subjective Patient Comments Patient Comments Pt reports she isnt having as much trouble in the garden PT-OP-D Balance Start: 10/15/22 17:05 Freq: Status: Active Protocol: Document 11/25/22 14:38 [facility] (Rec: 11/25/22 15:16 [facility] [id number]) Balance Tests Santana Balance Test Santana Balance Test Score 56 PT-OP-E Functional Tests Start: 10/15/22 17:05 Freq: Status: Active Protocol: Document 11/25/22 14:38 [facility] (Rec: 11/25/22 15:16 [facility] [id number]) Functional Tests 30 Second Sit to Stand Test Score 10 Dynamic Gait Index (DGI) Score 20/24 Five Times Sit to Stand Test Score 15 sec PT-OP-F Manual Assessment Start: 10/15/22 17:05 Freq: Status: Active Protocol: Document 10/19/22 14:29 [facility] (Rec: 10/19/22 15:23 [facility] [id number]) Manual Assessments Soft Tissue Assessment Soft Tissue Mobility Assessment some B QL & ES tightness PT-OP-G Mobility & Gait Start: 10/15/22 17:05 Freq: Status: Active Protocol: Document 10/19/22 14:29 [facility] (Rec: 10/19/22 15:23 [facility] [id number]) OP Gait Assessment Comments Gait Comments lat lean R w/R WB PT-OP-J Posture/Palpation/Skin Start: 10/15/22 17:05 Freq: Status: Active Protocol: Document 10/19/22 14:29 [facility] (Rec: 10/19/22 15:23 [facility] [id number]) Posture Evaluation Comments Posture Comments left iliac crest higher, equal greater trochanters; L shoulder higher PT-OP-L Special Tests Start: 10/15/22 17:05 Freq: Status: Active Protocol: Document 10/19/22 14:29 [facility] (Rec: 10/19/22 15:23 [facility] [id number]) Special Tests Lumbar Spine Special Tests Straight Leg Raise Test Results 90 deg L: about 75 deg R PT-OP-M Strength Start: 10/15/22 17:05 Freq: Status: Active Protocol: Document 10/19/22 14:29 [facility] (Rec: 10/19/22 15:23 [facility] [id number]) Hip Strength Hip Manual Muscle Testing Right Flexion (L2) 3 Fair Extension (S1) 3+ Fair+ Abduction 4- Good- External Rotation 3 Fair Internal Rotation 4 Good Left Flexion (L2) 3 Fair Extension (S1) 3+ Fair+ Abduction 3 Fair External Rotation 3 Fair Internal Rotation 3+ Fair+ Knee Strength Knee Manual Muscle Testing Right Flexion (S2) 4- Good- Extension (L3) 3 Fair Left Flexion (S2) 3+ Fair+ Extension (L3) 3 Fair Ankle/Foot Strength Ankle and Foot Manual Muscle Testing Right Dorsiflexion (L4) 5 Normal Plantarflexion (S1) 5 Normal Left Dorsiflexion (L4) 5 Normal Plantarflexion (S1) 5 Normal Comments tested seated B PT-OP-Q Treatments Start: 10/15/22 17:05 Freq: Status: Active Protocol: Document 11/25/22 14:38 [facility] (Rec: 11/25/22 15:16 [facility] [id number]) Cardio Equipment Recumbent Elliptical (Biodex) Duration (Minutes) 6 Resistance 6 Seat Position 7 Gym Equipment Shuttle Balance blue clips Details w/balloon volley Comments fwd & side: WBOS & NBOS fwd: staggered stnce B Therapeutic Exercises Standing Exercises step up Standing Exercise Name w/alt march Side bilateral Equipment Used 5 in step Reps/Minutes x5 Comments rail prn PT-OP-T Assessment and Plan Start: 10/15/22 17:05 Freq: Status: Active Protocol: Document 11/25/22 14:38 [facility] (Rec: 11/25/22 15:16 [facility] [id number]) Physical Therapy Assessment Goals stairs Gage Designer Goal (LTG) Pt will be able to go up/down stiars w/rail reciprocally w/ rail. 4/5-pain but can LTG Duration 01/11/23 balance Impairment DGI ; FGA Short Term Goal (STG) Pt will score at least /24 to show dec fall risk STG Duration achieved11/25 Gage Designer Goal (LTG) Pt will score at least 23/50 on FGA to shwo dec fall risk LTG Duration 01/11/23 sit to stands Impairment 8 in 30 sec Long-Term Goal (LTG) Pt will be able to do 11 sit to stands w/o knee pain in 30 sec to show improve strength and stability. 4-improved to 10 LTG Duration 01/11/23 SANTANA Long-Term Goal (LTG) pt will score at least 50 to show improved balance and safe as outdoor and community ambulator LTG Duration achieved mobility Short Term Goal (STG) Pt will be able to reach overhead w/o inc back pain 4/5-improving STG Duration 12/10 Long-Term Goal (LTG) Pt will be able to bend over as needed at any point int the day w/o LBP 4/5-in AM still stiff LTG Duration 01/11/23 Assessment Summary Assessment Pt has made excellent progress w/balance and strength overall. She is feeling safer in her garden and cont to advance w/her stability and showed dec risk for falls w/ SANTANA and DGI today. Physical Therapy Plan Frequency and Duration Frequency of Treatment 2x/Week Duration of treatment (weeks) 12 Plan of Care Start Date 10/19/22 Plan of Care End Date 01/11/23 Therapeutic Interventions Therapeutic Interventions Aquatic Therapy,Balance Training,Gait Training,Home Exercise Program,Joint Mobilizations,Manual Therapy, Neuromuscular Re-education, Orthotic/Prosthetic Management ,Patient/Caregiver Education, Self-Care/Home Management,Soft Tissue Mobilization,Taping, Therapeutic Activities, Therapeutic Exercises, Vestibular Rehabilitation Modalities Cold Pack/Ice Massage,Electric Stimulation,Hot Packs, Ultrasound Next Visit Focus/Plan Next Note Type Treatment Note Next Visit Plan Advance balance and strength; blue clips w/balloon volley
--- NOTE | 2022-11-30 17:54 | PT.OTN ---
Current Diagnoses Low back pain, unspecified (11/30/22) Repeated falls (11/30/22) Weakness (11/30/22) Wedge compression fracture of T11-T12 vertebra, sequela (11/30/22) Wedge compression fracture of first lumbar vertebra, initial encounter for closed fracture (11/30/22) Physical Therapy Treatment Note PT-OP-A Visit Information Start: 10/15/22 17:05 Freq: Status: Active Protocol: Document 11/30/22 13:59 [facility] (Rec: 11/30/22 14:37 [facility] [id number]) Out-Patient Physical Therapy Visit Information Visit Information Visit Type Treatment Note Visit Note 10/02 Visit Start Time 13:50 Visit Stop Time 14:30 Total Visit Minutes 40 Visit Number 10 Number of OVEN WORKER Visits 1 PT-OP-B Current Condition Start: 10/15/22 17:05 Freq: Status: Active Protocol: Document 10/19/22 14:29 [facility] (Rec: 10/19/22 15:23 [facility] [id number]) Current Condition History of Current Condition Onset Date past year Current Complaints falls, back pain d/t compression fx History of Current Condition Pt reports first fall (october 28 , she tripped on beadspread and hurt her shoulder. Did PT for shoulder. 2nd fall when she hit her sternum andhead on february 10 d/t missing a step on uneven and irregular.Last one , she missed a step going backwards and that was when she fractured her back 7. . She does have neuropathy in her feet. Pt reports she gets dizzy when gets up from bed and sometimes with rolling in bed. She feels like things are moving around in her head. Sometimes she gets spinning. She notes she gets the same thing when she moves her head around sometimes. Pt reports back is achey in the bad weather, but it isn't too bad at all. She also has a wrist injury from her fall and hurt her shoulder and then her 3rd fall made it worse. Lately her knees have been hurting. 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 NOw both hurt going up/down stairs but she hasn't seen anyone yet. She has been trying to be more cautious to avoid falling and has been trying not to be impulsive. She can't bend over in the mornings d/t her back. She also cannot reach or lift overhead d/t pain in back. Pt walks almost every day for about 2 miles. When in [place] in Aug, she walked 5 miles a day. pt was using a walking stick until Aug to walk with to help dec pressure in her back. Prior Treatments and Tests Lumbar CT: IMPRESSION: Acute appearing L1 compression fracture. Chronic appearing T11 compression fracture. Partially visualized splenic artery aneurysm versus calcified splenic cyst. Recommend CT scan of the abdomen with contrast for definitive characterization of the finding. Treatment Goals Patient/Caregiver Goals Help her with balance, not feel dizzy with activities, show her how to be more stable so she isn't tripping and falling, be able to reach overhead and bend over as needed w/o inc pain, be able to canoe; be able to do stairs comfortably PT-OP-C Subjective Start: 10/15/22 17:05 Freq: Status: Active Protocol: Document 11/30/22 13:59 [facility] (Rec: 11/30/22 14:37 [facility] [id number]) OP-PT Subjective Patient Comments Patient Comments Pt reports she is struggling to stand on one leg. PT-OP-D Balance Start: 10/15/22 17:05 Freq: Status: Active Protocol: Document 11/25/22 14:38 [facility] (Rec: 11/25/22 15:16 [facility] [id number]) Balance Tests Santana Balance Test Santana Balance Test Score 56 PT-OP-E Functional Tests Start: 10/15/22 17:05 Freq: Status: Active Protocol: Document 11/25/22 14:38 [facility] (Rec: 11/25/22 15:16 [facility] [id number]) Functional Tests 30 Second Sit to Stand Test Score 10 Dynamic Gait Index (DGI) Score 20/24 Five Times Sit to Stand Test Score 15 sec PT-OP-F Manual Assessment Start: 10/15/22 17:05 Freq: Status: Active Protocol: Document 10/19/22 14:29 [facility] (Rec: 10/19/22 15:23 [facility] [id number]) Manual Assessments Soft Tissue Assessment Soft Tissue Mobility Assessment some B QL & ES tightness PT-OP-G Mobility & Gait Start: 10/15/22 17:05 Freq: Status: Active Protocol: Document 10/19/22 14:29 [facility] (Rec: 10/19/22 15:23 [facility] [id number]) OP Gait Assessment Comments Gait Comments lat lean R w/R WB PT-OP-J Posture/Palpation/Skin Start: 10/15/22 17:05 Freq: Status: Active Protocol: Document 10/19/22 14:29 [facility] (Rec: 10/19/22 15:23 [facility] [id number]) Posture Evaluation Comments Posture Comments left iliac crest higher, equal greater trochanters; L shoulder higher PT-OP-L Special Tests Start: 10/15/22 17:05 Freq: Status: Active Protocol: Document 10/19/22 14:29 [facility] (Rec: 10/19/22 15:23 [facility] [id number]) Special Tests Lumbar Spine Special Tests Straight Leg Raise Test Results 90 deg L: about 75 deg R PT-OP-M Strength Start: 10/15/22 17:05 Freq: Status: Active Protocol: Document 10/19/22 14:29 [facility] (Rec: 10/19/22 15:23 [facility] [id number]) Hip Strength Hip Manual Muscle Testing Right Flexion (L2) 3 Fair Extension (S1) 3+ Fair+ Abduction 4- Good- External Rotation 3 Fair Internal Rotation 4 Good Left Flexion (L2) 3 Fair Extension (S1) 3+ Fair+ Abduction 3 Fair External Rotation 3 Fair Internal Rotation 3+ Fair+ Knee Strength Knee Manual Muscle Testing Right Flexion (S2) 4- Good- Extension (L3) 3 Fair Left Flexion (S2) 3+ Fair+ Extension (L3) 3 Fair Ankle/Foot Strength Ankle and Foot Manual Muscle Testing Right Dorsiflexion (L4) 5 Normal Plantarflexion (S1) 5 Normal Left Dorsiflexion (L4) 5 Normal Plantarflexion (S1) 5 Normal Comments tested seated B PT-OP-Q Treatments Start: 10/15/22 17:05 Freq: Status: Active Protocol: Document 11/30/22 13:59 [facility] (Rec: 11/30/22 14:37 [facility] [id number]) Cardio Equipment Recumbent Elliptical (Biodex) Duration (Minutes) 6 Resistance 6 Seat Position 7 Gym Equipment Shuttle Balance blue clips Details w/balloon volley Comments fwd & side: WBOS & NBOS Therapeutic Exercises Standing Exercises step up Standing Exercise Name w/alt march Side bilateral Equipment Used 5 in step Reps/Minutes x5 Comments rail prn hip ext Side bilateral Equipment Used red band Reps/Minutes x10 ea Comments initial cues for controlled movement w/ glute focus sidestep Side bilateral Equipment Used red band Reps/Minutes 20ft Comments cues for reaching through heel , slow eccentric Neuro Re-Education Treatment Balance Activities SLS Details SLS Surface kassidy Equipment // bars Reps/Duration trials tilt board Comments f/b, lat: balance, wt shifts tandem Reps/Duration 2x20ft ea Comments 1. tandem walk on line w/ fingers on bar 2. fwd on line 3. tandem stance PT-OP-T Assessment and Plan Start: 10/15/22 17:05 Freq: Status: Active Protocol: Document 11/30/22 13:59 [facility] (Rec: 11/30/22 14:37 [facility] [id number]) Physical Therapy Assessment Impairments Impairments Activity Tolerance,Balance, Functional Activities, Functional Mobility,Gait,Pain, Posture,ROM,Soft Tissue Mobility,Strength Goals stairs Care Home Goal (LTG) Pt will be able to go up/down stiars w/rail reciprocally w/ rail. 4/5-pain but can LTG Duration 01/11/23 balance Impairment DGI 18/24; FGA 18/30 Short Term Goal (STG) Pt will score at least 20/24 to show dec fall risk STG Duration achieved11/25 Care Home Goal (LTG) Pt will score at least 23/50 on FGA to shwo dec fall risk LTG Duration 01/11/23 sit to stands Impairment 8 in 30 sec Care Home Goal (LTG) Pt will be able to do 11 sit to stands w/o knee pain in 30 sec to show improve strength and stability. 45-improved to 10 LTG Duration 01/11/23 SANTANA Water Treatment Plant Repairer Goal (LTG) pt will score at least 50 to show improved balance and safe as outdoor and community ambulator LTG Duration achieved mobility Short Term Goal (STG) Pt will be able to reach overhead w/o inc back pain 4/5-improving STG Duration 12/10 Water Treatment Plant Repairer Goal (LTG) Pt will be able to bend over as needed at any point int the day w/o LBP 4/5-in AM still stiff LTG Duration 01/11/23 Assessment Summary Assessment Pt continues to demonstrate improved balance as with SLS and tandem stance bilaterally. She requires cues for resisted sidestepping for not scuffing L foot. Next visit consider manual to L knee to improve ROM for squatting. Physical Therapy Plan Frequency and Duration Frequency of Treatment 2x/Week Duration of treatment (weeks) 12 Plan of Care Start Date 10/19/22 Plan of Care End Date 01/11/23 Therapeutic Interventions Therapeutic Interventions Aquatic Therapy,Balance Training,Gait Training,Home Exercise Program,Joint Mobilizations,Manual Therapy, Neuromuscular Re-education, Orthotic/Prosthetic Management ,Patient/Caregiver Education, Self-Care/Home Management,Soft Tissue Mobilization,Taping, Therapeutic Activities, Therapeutic Exercises, Vestibular Rehabilitation Modalities Cold Pack/Ice Massage,Electric Stimulation,Hot Packs, Ultrasound Next Visit Focus/Plan Next Note Type Treatment Note Next Visit Plan Consider manual to L knee to improve ROM for squatting. POC: Advance balance and strength; blue clips w/balloon volley
--- NOTE | 2022-12-02 13:47 | PT.OTN ---
Current Diagnoses Low back pain, unspecified (12/02/22) Repeated falls (12/02/22) Weakness (12/02/22) Wedge compression fracture of T11-T12 vertebra, sequela (12/02/22) Wedge compression fracture of first lumbar vertebra, initial encounter for closed fracture (12/02/22) Physical Therapy Treatment Note PT-OP-A Visit Information Start: 10/15/22 17:05 Freq: Status: Active Protocol: Document 12/02/22 13:04 SP (Rec: 12/02/22 13:52 SP [id number]) Out-Patient Physical Therapy Visit Information Visit Information Visit Type Treatment Note Visit Note 10/30 Visit Start Time 13:04 Visit Stop Time 13:47 Total Visit Minutes 43 Visit Number 11 Number of FRAMEWORK DEVELOPER Visits 2 PT-OP-B Current Condition Start: 10/15/22 17:05 Freq: Status: Active Protocol: Document 10/19/22 14:29 [facility] (Rec: 10/19/22 15:23 [facility] [id number]) Current Condition History of Current Condition Onset Date past year Current Complaints falls, back pain d/t compression fx History of Current Condition Pt reports first fall (october 28 , she tripped on beadspread and hurt her shoulder. Did PT for shoulder. 2nd fall when she hit her sternum andhead on february 10 d/t missing a step on uneven and irregular.Last one , she missed a step going backwards and that was when she fractured her back 7 . She does have neuropathy in her feet. Pt reports she gets dizzy when gets up from bed and sometimes with rolling in bed. She feels like things are moving around in her head. Sometimes she gets spinning. She notes she gets the same thing when she moves her head around sometimes. Pt reports back is achey in the bad weather, but it isn't too bad at all. She also has a wrist injury from her fall and hurt her shoulder and then her 3rd fall made it worse. Lately her knees have been hurting. 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 NOw both hurt going up/down stairs but she hasn't seen anyone yet. She has been trying to be more cautious to avoid falling and has been trying not to be impulsive. She can't bend over in the mornings d/t her back. She also cannot reach or lift overhead d/t pain in back. Pt walks almost every day for about 2 miles. When in [place] in Aug, she walked 5 miles a day. pt was using a walking stick until Aug to walk with to help dec pressure in her back. Prior Treatments and Tests Lumbar CT: IMPRESSION: Acute appearing L1 compression fracture. Chronic appearing T11 compression fracture. Partially visualized splenic artery aneurysm versus calcified splenic cyst. Recommend CT scan of the abdomen with contrast for definitive characterization of the finding. Treatment Goals Patient/Caregiver Goals Help her with balance, not feel dizzy with activities, show her how to be more stable so she isn't tripping and falling, be able to reach overhead and bend over as needed w/o inc pain, be able to canoe; be able to do stairs comfortably PT-OP-C Subjective Start: 10/15/22 17:05 Freq: Status: Active Protocol: Document 12/02/22 13:04 SP (Rec: 12/02/22 13:52 SP [id number]) OP-PT Subjective Patient Comments Patient Comments Pt reports busy. PT-OP-D Balance Start: 10/15/22 17:05 Freq: Status: Active Protocol: Document 11/25/22 14:38 [facility] (Rec: 11/25/22 15:16 [facility] [id number]) Balance Tests Santana Balance Test Santana Balance Test Score 56 PT-OP-E Functional Tests Start: 10/15/22 17:05 Freq: Status: Active Protocol: Document 11/25/22 14:38 [facility] (Rec: 11/25/22 15:16 [facility] [id number]) Functional Tests 30 Second Sit to Stand Test Score 10 Dynamic Gait Index (DGI) Score 20/24 Five Times Sit to Stand Test Score 15 sec PT-OP-F Manual Assessment Start: 10/15/22 17:05 Freq: Status: Active Protocol: Document 10/19/22 14:29 [facility] (Rec: 10/19/22 15:23 [facility] [id number]) Manual Assessments Soft Tissue Assessment Soft Tissue Mobility Assessment some B QL & ES tightness PT-OP-G Mobility & Gait Start: 10/15/22 17:05 Freq: Status: Active Protocol: Document 10/19/22 14:29 [facility] (Rec: 10/19/22 15:23 [facility] [id number]) OP Gait Assessment Comments Gait Comments lat lean R w/R WB PT-OP-J Posture/Palpation/Skin Start: 10/15/22 17:05 Freq: Status: Active Protocol: Document 10/19/22 14:29 [facility] (Rec: 10/19/22 15:23 [facility] [id number]) Posture Evaluation Comments Posture Comments left iliac crest higher, equal greater trochanters; L shoulder higher PT-OP-L Special Tests Start: 10/15/22 17:05 Freq: Status: Active Protocol: Document 10/19/22 14:29 [facility] (Rec: 10/19/22 15:23 [facility] [id number]) Special Tests Lumbar Spine Special Tests Straight Leg Raise Test Results 90 deg L: about 75 deg R PT-OP-M Strength Start: 10/15/22 17:05 Freq: Status: Active Protocol: Document 10/19/22 14:29 [facility] (Rec: 10/19/22 15:23 [facility] [id number]) Hip Strength Hip Manual Muscle Testing Right Flexion (L2) 3 Fair Extension (S1) 3+ Fair+ Abduction 4- Good- External Rotation 3 Fair Internal Rotation 4 Good Left Flexion (L2) 3 Fair Extension (S1) 3+ Fair+ Abduction 3 Fair External Rotation 3 Fair Internal Rotation 3+ Fair+ Knee Strength Knee Manual Muscle Testing Right Flexion (S2) 4- Good- Extension (L3) 3 Fair Left Flexion (S2) 3+ Fair+ Extension (L3) 3 Fair Ankle/Foot Strength Ankle and Foot Manual Muscle Testing Right Dorsiflexion (L4) 5 Normal Plantarflexion (S1) 5 Normal Left Dorsiflexion (L4) 5 Normal Plantarflexion (S1) 5 Normal Comments tested seated B PT-OP-Q Treatments Start: 10/15/22 17:05 Freq: Status: Active Protocol: Document 12/02/22 13:04 SP (Rec: 12/02/22 13:52 SP [id number]) Cardio Equipment Recumbent Elliptical (Biodex) Duration (Minutes) 6 Resistance 6 Seat Position 7 Other UEs, LEs- 35 RPMs Gym Equipment Shuttle Balance red clips Details WBOS Comments wt shift, HTs blue clips Details w/balloon volley Comments fwd & side: WBOS & NBOS stagger: HTs- cued slower for improved stability. NBOS EC 30 sec Therapeutic Exercises Standing Exercises resisted walk Standing Exercise Name fwd/back Side bilateral Equipment Used red tband Reps/Minutes 3x 10ft hip ext Side bilateral Equipment Used red band Reps/Minutes x10 ea Comments cued tall posture knee straight w/ hip ext only sidestep Side bilateral Equipment Used red band Reps/Minutes 20ft Comments cues for reaching through heel , slow eccentric Neuro Re-Education Treatment Balance Activities hurdles Details fwd Equipment 6 hurdles, foam, rolled up 5# leg wt on floor Reps/Duration 2 min Comments cued slower pacing, elevated posturing - improved stability receiprocal stepping. PT-OP-T Assessment and Plan Start: 10/15/22 17:05 Freq: Status: Active Protocol: Document 12/02/22 13:04 SP (Rec: 12/02/22 13:52 SP [id number]) Physical Therapy Assessment Goals stairs Director Semiconductor Goal (LTG) Pt will be able to go up/down stiars w/rail reciprocally w/ rail. 4/5-pain but can LTG Duration 01/11/23 balance Impairment DGI 18/24; FGA 1830 Short Term Goal (STG) Pt will score at least 20/24 to show dec fall risk STG Duration achieved11/25 Snf Goal (LTG) Pt will score at least 23/50 on FGA to shwo dec fall risk LTG Duration 01/11/23 sit to stands Impairment 8 in 30 sec Snf Goal (LTG) Pt will be able to do 11 sit to stands w/o knee pain in 30 sec to show improve strength and stability. 4-improved to 10 LTG Duration 01/11/23 SANTANA Snf Goal (LTG) pt will score at least 50 to show improved balance and safe as outdoor and community ambulator LTG Duration achieved mobility Short Term Goal (STG) Pt will be able to reach overhead w/o inc back pain 4/5-improving STG Duration 12/10 Director Semiconductor Goal (LTG) Pt will be able to bend over as needed at any point int the day w/o LBP 4/5-in AM still stiff LTG Duration 01/11/23 Assessment Summary Assessment Pt improved stability able perform EC NBOS blue chains up to 30 sec today, stagger HTs and red chains WBOS. No LOB during uneven obstacle course. Cues for R>L LE ankle alignment. No reports knee pain throughout tx. Physical Therapy Plan Frequency and Duration Frequency of Treatment 2x/Week Duration of treatment (weeks) 12 Plan of Care Start Date 10/19/22 Plan of Care End Date 01/11/23 Therapeutic Interventions Therapeutic Interventions Aquatic Therapy,Balance Training,Gait Training,Home Exercise Program,Joint Mobilizations,Manual Therapy, Neuromuscular Re-education, Orthotic/Prosthetic Management ,Patient/Caregiver Education, Self-Care/Home Management,Soft Tissue Mobilization,Taping, Therapeutic Activities, Therapeutic Exercises, Vestibular Rehabilitation Modalities Cold Pack/Ice Massage,Electric Stimulation,Hot Packs, Ultrasound Next Visit Focus/Plan Next Note Type Treatment Note Next Visit Plan Consider manual to L knee to improve ROM for squatting. POC: Advance balance and strength; blue clips w/balloon volley
--- NOTE | 2022-12-07 18:05 | PT.OTN ---
Current Diagnoses Low back pain, unspecified (12/07/22) Repeated falls (12/07/22) Weakness (12/07/22) Wedge compression fracture of T11-T12 vertebra, sequela (12/07/22) Wedge compression fracture of first lumbar vertebra, initial encounter for closed fracture (12/07/22) Physical Therapy Treatment Note PT-OP-A Visit Information Start: 10/15/22 17:05 Freq: Status: Active Protocol: Document 12/07/22 16:55 [facility] (Rec: 12/07/22 18:05 [facility] [id number]) Out-Patient Physical Therapy Visit Information Visit Information Visit Type Treatment Note Visit Note 11/30 Visit Start Time 16:52 Visit Stop Time 17:38 Total Visit Minutes 46 Visit Number 12 Number of ESL TEACHER Visits 0 PT-OP-B Current Condition Start: 10/15/22 17:05 Freq: Status: Active Protocol: Document 10/19/22 14:29 [facility] (Rec: 10/19/22 15:23 [facility] [id number]) Current Condition History of Current Condition Onset Date past year Current Complaints falls, back pain d/t compression fx History of Current Condition Pt reports first fall (october 28 , she tripped on beadspread and hurt her shoulder. Did PT for shoulder. 2nd fall when she hit her sternum andhead on february 10 d/t missing a step on uneven and irregular.Last one , she missed a step going backwards and that was when she fractured her back 7. . She does have neuropathy in her feet. Pt reports she gets dizzy when gets up from bed and sometimes with rolling in bed. She feels like things are moving around in her head. Sometimes she gets spinning. She notes she gets the same thing when she moves her head around sometimes. Pt reports back is achey in the bad weather, but it isn't too bad at all. She also has a wrist injury from her fall and hurt her shoulder and then her 3rd fall made it worse. Lately her knees have been hurting. 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 NOw both hurt going up/down stairs but she hasn't seen anyone yet. She has been trying to be more cautious to avoid falling and has been trying not to be impulsive. She can't bend over in the mornings d/t her back. She also cannot reach or lift overhead d/t pain in back. Pt walks almost every day for about 2 miles. When in [place] in Aug, she walked 5 miles a day. pt was using a walking stick until Aug to walk with to help dec pressure in her back. Prior Treatments and Tests Lumbar CT: IMPRESSION: Acute appearing L1 compression fracture. Chronic appearing T11 compression fracture. Partially visualized splenic artery aneurysm versus calcified splenic cyst. Recommend CT scan of the abdomen with contrast for definitive characterization of the finding. Treatment Goals Patient/Caregiver Goals Help her with balance, not feel dizzy with activities, show her how to be more stable so she isn't tripping and falling, be able to reach overhead and bend over as needed w/o inc pain, be able to canoe; be able to do stairs comfortably PT-OP-C Subjective Start: 10/15/22 17:05 Freq: Status: Active Protocol: Document 12/07/22 16:55 [facility] (Rec: 12/07/22 18:05 [facility] [id number]) OP-PT Subjective Patient Comments Patient Comments Pt reports last time she pulled a muscle in back and she thinks it was on red clips . She had ot use heating pad and it went away. PT-OP-D Balance Start: 10/15/22 17:05 Freq: Status: Active Protocol: Document 11/25/22 14:38 [facility] (Rec: 11/25/22 15:16 [facility] [id number]) Balance Tests Santana Balance Test Santana Balance Test Score 56 PT-OP-E Functional Tests Start: 10/15/22 17:05 Freq: Status: Active Protocol: Document 11/25/22 14:38 [facility] (Rec: 11/25/22 15:16 [facility] [id number]) Functional Tests 30 Second Sit to Stand Test Score 10 Dynamic Gait Index (DGI) Score 20/24 Five Times Sit to Stand Test Score 15 sec PT-OP-F Manual Assessment Start: 10/15/22 17:05 Freq: Status: Active Protocol: Document 10/19/22 14:29 [facility] (Rec: 10/19/22 15:23 [facility] [id number]) Manual Assessments Soft Tissue Assessment Soft Tissue Mobility Assessment some B QL & ES tightness PT-OP-G Mobility & Gait Start: 10/15/22 17:05 Freq: Status: Active Protocol: Document 10/19/22 14:29 [facility] (Rec: 10/19/22 15:23 [facility] [id number]) OP Gait Assessment Comments Gait Comments lat lean R w/R WB PT-OP-J Posture/Palpation/Skin Start: 10/15/22 17:05 Freq: Status: Active Protocol: Document 10/19/22 14:29 [facility] (Rec: 10/19/22 15:23 [facility] [id number]) Posture Evaluation Comments Posture Comments left iliac crest higher, equal greater trochanters; L shoulder higher PT-OP-L Special Tests Start: 10/15/22 17:05 Freq: Status: Active Protocol: Document 10/19/22 14:29 [facility] (Rec: 10/19/22 15:23 [facility] [id number]) Special Tests Lumbar Spine Special Tests Straight Leg Raise Test Results 90 deg L: about 75 deg R PT-OP-M Strength Start: 10/15/22 17:05 Freq: Status: Active Protocol: Document 10/19/22 14:29 [facility] (Rec: 10/19/22 15:23 [facility] [id number]) Hip Strength Hip Manual Muscle Testing Right Flexion (L2) 3 Fair Extension (S1) 3+ Fair+ Abduction 4- Good- External Rotation 3 Fair Internal Rotation 4 Good Left Flexion (L2) 3 Fair Extension (S1) 3+ Fair+ Abduction 3 Fair External Rotation 3 Fair Internal Rotation 3+ Fair+ Knee Strength Knee Manual Muscle Testing Right Flexion (S2) 4- Good- Extension (L3) 3 Fair Left Flexion (S2) 3+ Fair+ Extension (L3) 3 Fair Ankle/Foot Strength Ankle and Foot Manual Muscle Testing Right Dorsiflexion (L4) 5 Normal Plantarflexion (S1) 5 Normal Left Dorsiflexion (L4) 5 Normal Plantarflexion (S1) 5 Normal Comments tested seated B PT-OP-Q Treatments Start: 10/15/22 17:05 Freq: Status: Active Protocol: Document 12/07/22 16:55 [facility] (Rec: 12/07/22 18:05 [facility] [id number]) Cardio Equipment Recumbent Elliptical (BiodHeartbeat) Duration (Minutes) 6 Resistance 6 Seat Position 7 Therapeutic Exercises Supine Exercises facilitation Supine Exercise Name core w/LLE flex, ER add pattern Side left Reps/Minutes prolonged hold x2 Sitting Exercises facilitation Sitting Exercise Name L glute w/traction Reps/Minutes prolonged hold x2 Standing Exercises lunges Side bilateral Equipment Used bar Reps/Minutes 10 ea Comments mini step up Standing Exercise Name max cues and demo for wt shift and posture Side left Equipment Used 4 in, 5 in, 6 in Reps/Minutes 2x8, x8, x8 Comments then 1 set recip up and down sit to stands Side bilateral Equipment Used 2nd set w/tband lvl 2 at knees for ER facilitation Reps/Minutes x10 ea Comments cues for slow decent, glute squeeze at top Manual Therapy Treatment Soft Tissue Mobilization adductors Body Location L Mobilization Type Rolling,Strumming Intensity/Depth Moderate Body Position Hooklying Comments w/ER scar Body Location L lat Mobilization Type Myofascial Release,Rolling, Strumming,Sustained Pressure Intensity/Depth Moderate Comments FM w/ER/IR Joint Mobilizations hip Joint L Direction onaxis ER FM & inf FM Body Position Hooklying PF Joint L Direction sup, med, inf PT-OP-T Assessment and Plan Start: 10/15/22 17:05 Freq: Status: Active Protocol: Document 12/07/22 16:55 [facility] (Rec: 12/07/22 18:05 [facility] [id number]) Physical Therapy Assessment Goals stairs Snf Goal (LTG) Pt will be able to go up/down stiars w/rail reciprocally w/ rail. 4/5-pain but can LTG Duration 01/11/23 balance Impairment DGI 18/24; FGA 18/30 Short Term Goal (STG) Pt will score at least 20/24 to show dec fall risk STG Duration achieved11/25 Snf Goal (LTG) Pt will score at least 23/50 on FGA to shwo dec fall risk LTG Duration 01/11/23 sit to stands Impairment 8 in 30 sec Snf Goal (LTG) Pt will be able to do 11 sit to stands w/o knee pain in 30 sec to show improve strength and stability. 4/5-improved to 10 LTG Duration 01/11/23 SANTANA Snf Goal (LTG) pt will score at least 50 to show improved balance and safe as outdoor and community ambulator LTG Duration achieved mobility Short Term Goal (STG) Pt will be able to reach overhead w/o inc back pain 4/5-improving STG Duration 4/20 Snf Goal (LTG) Pt will be able to bend over as needed at any point int the day w/o LBP /5-in AM still stiff LTG Duration 01/11/23 Assessment Summary Assessment Pt did much better w/sit to stand w/dec IR w.kat and manual treatment as it inc ER ROM and hip flex ROM. She had imrpoved ability to do stairs w/less pain w/progressive heigh training w/focus on wt acceptance into LLE and posture Physical Therapy Plan Frequency and Duration Frequency of Treatment 2x/Week Duration of treatment (weeks) 12 Plan of Care Start Date 10/19/22 Plan of Care End Date 01/11/23 Next Visit Focus/Plan Next Note Type Treatment Note Next Visit Plan Advance balance and strength
--- NOTE | 2022-12-14 14:32 | PT.OTN ---
Current Diagnoses Low back pain, unspecified (12/14/22) Repeated falls (12/14/22) Weakness (12/14/22) Wedge compression fracture of T11-T12 vertebra, sequela (12/14/22) Wedge compression fracture of first lumbar vertebra, initial encounter for closed fracture (12/14/22) Physical Therapy Treatment Note PT-OP-A Visit Information Start: 10/15/22 17:05 Freq: Status: Active Protocol: Document 12/14/22 13:55 [facility] (Rec: 12/14/22 14:32 [facility] [id number]) Out-Patient Physical Therapy Visit Information Visit Information Visit Type Treatment Note Visit Note 12/30 Visit Start Time 13:47 Visit Stop Time 14:28 Total Visit Minutes 41 Visit Number 13 Number of COMMERCIAL LENDING RELATIONSHIP MANAGER Visits 0 PT-OP-B Current Condition Start: 10/15/22 17:05 Freq: Status: Active Protocol: Document 10/19/22 14:29 [facility] (Rec: 10/19/22 15:23 [facility] [id number]) Current Condition History of Current Condition Onset Date past year Current Complaints falls, back pain d/t compression fx History of Current Condition Pt reports first fall (october 28 , she tripped on beadspread and hurt her shoulder. Did PT for shoulder. 2nd fall when she hit her sternum andhead on february 10 d/t missing a step on uneven and irregular.Last one , she missed a step going backwards and that was when she fractured her back 7. . She does have neuropathy in her feet. Pt reports she gets dizzy when gets up from bed and sometimes with rolling in bed. She feels like things are moving around in her head. Sometimes she gets spinning. She notes she gets the same thing when she moves her head around sometimes. Pt reports back is achey in the bad weather, but it isn't too bad at all. She also has a wrist injury from her fall and hurt her shoulder and then her 3rd fall made it worse. Lately her knees have been hurting. 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 NOw both hurt going up/down stairs but she hasn't seen anyone yet. She has been trying to be more cautious to avoid falling and has been trying not to be impulsive. She can't bend over in the mornings d/t her back. She also cannot reach or lift overhead d/t pain in back. Pt walks almost every day for about 2 miles. When in [place] in Aug, she walked 5 miles a day. pt was using a walking stick until Aug to walk with to help dec pressure in her back. Prior Treatments and Tests Lumbar CT: IMPRESSION: Acute appearing L1 compression fracture. Chronic appearing T11 compression fracture. Partially visualized splenic artery aneurysm versus calcified splenic cyst. Recommend CT scan of the abdomen with contrast for definitive characterization of the finding. Treatment Goals Patient/Caregiver Goals Help her with balance, not feel dizzy with activities, show her how to be more stable so she isn't tripping and falling, be able to reach overhead and bend over as needed w/o inc pain, be able to canoe; be able to do stairs comfortably PT-OP-C Subjective Start: 10/15/22 17:05 Freq: Status: Active Protocol: Document 12/14/22 13:55 [facility] (Rec: 12/14/22 14:32 [facility] [id number]) OP-PT Subjective Patient Comments Patient Comments Pt reports L knee flared up after manual treatment so asked to discontinue this. PT-OP-D Balance Start: 10/15/22 17:05 Freq: Status: Active Protocol: Document 11/25/22 14:38 [facility] (Rec: 11/25/22 15:16 [facility] [id number]) Balance Tests Santana Balance Test Santana Balance Test Score 56 PT-OP-E Functional Tests Start: 10/15/22 17:05 Freq: Status: Active Protocol: Document 11/25/22 14:38 [facility] (Rec: 11/25/22 15:16 [facility] [id number]) Functional Tests 30 Second Sit to Stand Test Score 10 Dynamic Gait Index (DGI) Score 20/24 Five Times Sit to Stand Test Score 15 sec PT-OP-F Manual Assessment Start: 10/15/22 17:05 Freq: Status: Active Protocol: Document 10/19/22 14:29 [facility] (Rec: 10/19/22 15:23 [facility] [id number]) Manual Assessments Soft Tissue Assessment Soft Tissue Mobility Assessment some B QL & ES tightness PT-OP-G Mobility & Gait Start: 10/15/22 17:05 Freq: Status: Active Protocol: Document 10/19/22 14:29 [facility] (Rec: 10/19/22 15:23 [facility] [id number]) OP Gait Assessment Comments Gait Comments lat lean R w/R WB PT-OP-J Posture/Palpation/Skin Start: 10/15/22 17:05 Freq: Status: Active Protocol: Document 10/19/22 14:29 [facility] (Rec: 10/19/22 15:23 [facility] [id number]) Posture Evaluation Comments Posture Comments left iliac crest higher, equal greater trochanters; L shoulder higher PT-OP-L Special Tests Start: 10/15/22 17:05 Freq: Status: Active Protocol: Document 10/19/22 14:29 [facility] (Rec: 10/19/22 15:23 [facility] [id number]) Special Tests Lumbar Spine Special Tests Straight Leg Raise Test Results 90 deg L: about 75 deg R PT-OP-M Strength Start: 10/15/22 17:05 Freq: Status: Active Protocol: Document 10/19/22 14:29 [facility] (Rec: 10/19/22 15:23 [facility] [id number]) Hip Strength Hip Manual Muscle Testing Right Flexion (L2) 3 Fair Extension (S1) 3+ Fair+ Abduction 4- Good- External Rotation 3 Fair Internal Rotation 4 Good Left Flexion (L2) 3 Fair Extension (S1) 3+ Fair+ Abduction 3 Fair External Rotation 3 Fair Internal Rotation 3+ Fair+ Knee Strength Knee Manual Muscle Testing Right Flexion (S2) 4- Good- Extension (L3) 3 Fair Left Flexion (S2) 3+ Fair+ Extension (L3) 3 Fair Ankle/Foot Strength Ankle and Foot Manual Muscle Testing Right Dorsiflexion (L4) 5 Normal Plantarflexion (S1) 5 Normal Left Dorsiflexion (L4) 5 Normal Plantarflexion (S1) 5 Normal Comments tested seated B PT-OP-Q Treatments Start: 10/15/22 17:05 Freq: Status: Active Protocol: Document 12/14/22 13:55 [facility] (Rec: 12/14/22 14:32 [facility] [id number]) Cardio Equipment Recumbent Elliptical (Biodex) Duration (Minutes) 6 Resistance 6 Seat Position 7 Gym Equipment Shuttle Balance blue clips Details w/balloon volley Comments fwd & side: WBOS & NBOS fwd:stagger stance B Therapeutic Exercises Standing Exercises step up Side bilateral Equipment Used 5 in step Reps/Minutes 10 Comments rail prn w/fingers DF/PF Side bilateral Reps/Minutes 25 Comments cues for vertical movment only , less a/p weightshifting Neuro Re-Education Treatment Balance Activities bosu Details standing balance tilt board Comments f/b, lat: wt shifts tandem Comments 1. tandem walk on line w/ finger(1) on bar 2x20ft 2. fwd on line 2x20ft 3. tandem stance trials B foam Surface blue foam Comments 1.WBOS & NBOS & staggered stance w/ head turns and EC trials 2.squats x15 hurdles Details fwd Equipment 6 hurdles Comments 1. sidesteps x2B 2. fwd recip w/foam btwn x6 PT-OP-T Assessment and Plan Start: 10/15/22 17:05 Freq: Status: Active Protocol: Document 12/14/22 13:55 [facility] (Rec: 12/14/22 14:32 [facility] [id number]) Physical Therapy Assessment Goals stairs Tube Room Cashier Goal (LTG) Pt will be able to go up/down stiars w/rail reciprocally w/ rail. 4/5-pain but can LTG Duration 01/11/23 balance Impairment DGI ; FGA Short Term Goal (STG) Pt will score at least 20/24 to show dec fall risk STG Duration achieved11/25 Tube Room Cashier Goal (LTG) Pt will score at least 23/50 on FGA to shwo dec fall risk LTG Duration 01/11/23 sit to stands Impairment 8 in 30 sec Tube Room Cashier Goal (LTG) Pt will be able to do 11 sit to stands w/o knee pain in 30 sec to show improve strength and stability. 45-improved to 10 LTG Duration 01/11/23 SANTANA Skilled Nursing Goal (LTG) pt will score at least 50 to show improved balance and safe as outdoor and community ambulator LTG Duration achieved mobility Short Term Goal (STG) Pt will be able to reach overhead w/o inc back pain 4/5-improving STG Duration 12/10 Tube Room Cashier Goal (LTG) Pt will be able to bend over as needed at any point int the day w/o LBP 4/5-in AM still stiff LTG Duration 5/22/23 Assessment Summary Assessment Pt did well with balance exercises and strenth exercises. She does still feel challenged by these and nervous trying some but does try to avoid rail use Physical Therapy Plan Frequency and Duration Frequency of Treatment 2x/Week Duration of treatment (weeks) 12 Plan of Care Start Date 10/19/22 Plan of Care End Date 01/11/23 Next Visit Focus/Plan Next Note Type Treatment Note Next Visit Plan Advance balance and strength
--- NOTE | 2022-12-17 15:19 | PT.OTN ---
Current Diagnoses Low back pain, unspecified (12/17/22) Repeated falls (12/17/22) Weakness (12/17/22) Wedge compression fracture of T11-T12 vertebra, sequela (12/17/22) Wedge compression fracture of first lumbar vertebra, initial encounter for closed fracture (12/17/22) Physical Therapy Treatment Note PT-OP-A Visit Information Start: 10/15/22 17:05 Freq: Status: Active Protocol: Document 12/17/22 13:52 (Rec: 12/17/22 15:19 [id number]) Out-Patient Physical Therapy Visit Information Visit Information Visit Type Treatment Note Visit Start Time 13:48 Visit Stop Time 14:30 Total Visit Minutes 42 Visit Number 14 Number of PERSONAL INJURY ATTORNEY Visits 1 PT-OP-B Current Condition Start: 10/15/22 17:05 Freq: Status: Active Protocol: Document 10/19/22 14:29 [facility] (Rec: 10/19/22 15:23 [facility] [id number]) Current Condition History of Current Condition Onset Date past year Current Complaints falls, back pain d/t compression fx History of Current Condition Pt reports first fall (october 28 , she tripped on beadspread and hurt her shoulder. Did PT for shoulder. 2nd fall when she hit her sternum andhead on february 10 d/t missing a step on uneven and irregular.Last one , she missed a step going backwards and that was when she fractured her back 7 . She does have neuropathy in her feet. Pt reports she gets dizzy when gets up from bed and sometimes with rolling in bed. She feels like things are moving around in her head. Sometimes she gets spinning. She notes she gets the same thing when she moves her head around sometimes. Pt reports back is achey in the bad weather, but it isn't too bad at all. She also has a wrist injury from her fall and hurt her shoulder and then her 3rd fall made it worse. Lately her knees have been hurting. 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 NOw both hurt going up/down stairs but she hasn't seen anyone yet. She has been trying to be more cautious to avoid falling and has been trying not to be impulsive. She can't bend over in the mornings d/t her back. She also cannot reach or lift overhead d/t pain in back. Pt walks almost every day for about 2 miles. When in [place] in Aug, she walked 5 miles a day. pt was using a walking stick until Aug to walk with to help dec pressure in her back. Prior Treatments and Tests Lumbar CT: IMPRESSION: Acute appearing L1 compression fracture. Chronic appearing T11 compression fracture. Partially visualized splenic artery aneurysm versus calcified splenic cyst. Recommend CT scan of the abdomen with contrast for definitive characterization of the finding. Treatment Goals Patient/Caregiver Goals Help her with balance, not feel dizzy with activities, show her how to be more stable so she isn't tripping and falling, be able to reach overhead and bend over as needed w/o inc pain, be able to canoe; be able to do stairs comfortably PT-OP-C Subjective Start: 10/15/22 17:05 Freq: Status: Active Protocol: Document 12/17/22 13:52 (Rec: 12/17/22 15:19 [id number]) OP-PT Subjective Patient Comments Patient Comments Pt reports things have been going good, trying to improve balance to get back to her gardening without falls. PT-OP-D Balance Start: 10/15/22 17:05 Freq: Status: Active Protocol: Document 11/25/22 14:38 [facility] (Rec: 11/25/22 15:16 [facility] [id number]) Balance Tests Santana Balance Test Santana Balance Test Score 56 PT-OP-E Functional Tests Start: 10/15/22 17:05 Freq: Status: Active Protocol: Document 11/25/22 14:38 [facility] (Rec: 11/25/22 15:16 [facility] [id number]) Functional Tests 30 Second Sit to Stand Test Score 10 Dynamic Gait Index (DGI) Score 20/24 Five Times Sit to Stand Test Score 15 sec PT-OP-F Manual Assessment Start: 10/15/22 17:05 Freq: Status: Active Protocol: Document 10/19/22 14:29 [facility] (Rec: 10/19/22 15:23 [facility] [id number]) Manual Assessments Soft Tissue Assessment Soft Tissue Mobility Assessment some B QL & ES tightness PT-OP-G Mobility & Gait Start: 10/15/22 17:05 Freq: Status: Active Protocol: Document 10/19/22 14:29 [facility] (Rec: 10/19/22 15:23 [facility] [id number]) OP Gait Assessment Comments Gait Comments lat lean R w/R WB PT-OP-J Posture/Palpation/Skin Start: 10/15/22 17:05 Freq: Status: Active Protocol: Document 10/19/22 14:29 [facility] (Rec: 10/19/22 15:23 [facility] [id number]) Posture Evaluation Comments Posture Comments left iliac crest higher, equal greater trochanters; L shoulder higher PT-OP-L Special Tests Start: 10/15/22 17:05 Freq: Status: Active Protocol: Document 10/19/22 14:29 [facility] (Rec: 10/19/22 15:23 [facility] [id number]) Special Tests Lumbar Spine Special Tests Straight Leg Raise Test Results 90 deg L: about 75 deg R PT-OP-M Strength Start: 10/15/22 17:05 Freq: Status: Active Protocol: Document 10/19/22 14:29 [facility] (Rec: 10/19/22 15:23 [facility] [id number]) Hip Strength Hip Manual Muscle Testing Right Flexion (L2) 3 Fair Extension (S1) 3+ Fair+ Abduction 4- Good- External Rotation 3 Fair Internal Rotation 4 Good Left Flexion (L2) 3 Fair Extension (S1) 3+ Fair+ Abduction 3 Fair External Rotation 3 Fair Internal Rotation 3+ Fair+ Knee Strength Knee Manual Muscle Testing Right Flexion (S2) 4- Good- Extension (L3) 3 Fair Left Flexion (S2) 3+ Fair+ Extension (L3) 3 Fair Ankle/Foot Strength Ankle and Foot Manual Muscle Testing Right Dorsiflexion (L4) 5 Normal Plantarflexion (S1) 5 Normal Left Dorsiflexion (L4) 5 Normal Plantarflexion (S1) 5 Normal Comments tested seated B PT-OP-Q Treatments Start: 10/15/22 17:05 Freq: Status: Active Protocol: Document 12/17/22 13:52 [facility] (Rec: 12/17/22 15:19 [facility] [id number]) Cardio Equipment Recumbent Stepper (Sci-Fit) Duration (Minutes) 6 Resistance 2 Seat Position 7 Gym Equipment Shuttle Balance blue clips Details w/balloon volley Comments fwd & side: WBOS & NBOS fwd:stagger stance B Therapeutic Exercises Standing Exercises Mini Squats Side bilateral Reps/Minutes x10 Comments cues for alignment, slow and controlled step up Side bilateral Equipment Used 6 in step Reps/Minutes x10 Comments rail prn, cues for glute activation, and control descending stair sit to stands Side bilateral Reps/Minutes x10 Comments cues for slow decent, glute squeeze at top Neuro Re-Education Treatment Balance Activities backwards walk Surface smooth Reps/Duration 2x20ft uneven surfaces Details Foam green, blue, riverwalk stones Surface Uneven Comments to immitate uneven surfaces in the garden SLS Details SLS Surface smooth Equipment // bars Reps/Duration x10 each Comments VC for standing posture, glute activation bosu Details standing balance Equipment // bars Comments AUTOMOBILE BUMPER STRAIGHTENER prn tilt board Comments f/b, lat: wt shifts, balance tandem Comments 1. tandem walk on line w/ finger(1) on bar 2x20ft 2. fwd on line 2x20ft 3. tandem stance B foam Surface blue foam Comments 1. Staggered w/ head turns, EC 2. Aleida PT-OP-T Assessment and Plan Start: 10/15/22 17:05 Freq: Status: Active Protocol: Document 12/17/22 13:52 (Rec: 12/17/22 15:19 [id number]) Physical Therapy Assessment Goals stairs Agronomy Supervisor Goal (LTG) Pt will be able to go up/down stiars w/rail reciprocally w/ rail. 4/5-pain but can LTG Duration 01/11/23 balance Impairment DGI 18/24; FGA 18/30 Short Term Goal (STG) Pt will score at least 20/24 to show dec fall risk STG Duration achieved11/25 Custodial Goal (LTG) Pt will score at least 23/50 on FGA to shwo dec fall risk LTG Duration 01/11/23 sit to stands Impairment 8 in 30 sec Custodial Goal (LTG) Pt will be able to do 11 sit to stands w/o knee pain in 30 sec to show improve strength and stability. 4/5-improved to 10 LTG Duration 01/11/23 SANTANA Custodial Goal (LTG) pt will score at least 50 to show improved balance and safe as outdoor and community ambulator LTG Duration achieved mobility Short Term Goal (STG) Pt will be able to reach overhead w/o inc back pain 4/5-improving STG Duration 12/10 Agronomy Supervisor Goal (LTG) Pt will be able to bend over as needed at any point int the day w/o LBP 11/25-in AM still stiff LTG Duration 01/11/23 Assessment Summary Assessment Pt challenged with balance exercises today, requiring AUTOMOBILE BUMPER STRAIGHTENER prn. She is nervous with walking backwards d/t fall in the past when she took a step back, discussed challenge here in PT that carryover to movements we do with ADLs, discussed that this is not part of HEP it is a challenge in a controlled environment. She reports she has been compliant with HEP and still feels challenged with current resistance. Physical Therapy Plan Next Visit Focus/Plan Next Note Type Treatment Note Next Visit Plan Advance balance and strength
--- NOTE | 2022-12-21 14:46 | PT.OTN ---
Current Diagnoses Low back pain, unspecified (12/21/22) Repeated falls (12/21/22) Weakness (12/21/22) Wedge compression fracture of T11-T12 vertebra, sequela (12/21/22) Wedge compression fracture of first lumbar vertebra, initial encounter for closed fracture (12/21/22) Physical Therapy Treatment Note PT-OP-A Visit Information Start: 10/15/22 17:05 Freq: Status: Active Protocol: Document 12/21/22 13:33 [facility] (Rec: 12/21/22 14:46 [facility] [id number]) Out-Patient Physical Therapy Visit Information Visit Information Visit Type Treatment Note Visit Note 03/01 Visit Start Time 12:50 Visit Stop Time 13:30 Total Visit Minutes 40 Visit Number 15 Number of TAX STAFF ACCOUNTANT Visits 0 PT-OP-B Current Condition Start: 10/15/22 17:05 Freq: Status: Active Protocol: Document 10/19/22 14:29 [facility] (Rec: 10/19/22 15:23 [facility] [id number]) Current Condition History of Current Condition Onset Date past year Current Complaints falls, back pain d/t compression fx History of Current Condition Pt reports first fall (october 28 , she tripped on beadspread and hurt her shoulder. Did PT for shoulder. 2nd fall when she hit her sternum andhead on february 10 d/t missing a step on uneven and irregular.Last one , she missed a step going backwards and that was when she fractured her back . She does have neuropathy in her feet. Pt reports she gets dizzy when gets up from bed and sometimes with rolling in bed. She feels like things are moving around in her head. Sometimes she gets spinning. She notes she gets the same thing when she moves her head around sometimes. Pt reports back is achey in the bad weather, but it isn't too bad at all. She also has a wrist injury from her fall and hurt her shoulder and then her 3rd fall made it worse. Lately her knees have been hurting. 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 NOw both hurt going up/down stairs but she hasn't seen anyone yet. She has been trying to be more cautious to avoid falling and has been trying not to be impulsive. She can't bend over in the mornings d/t her back. She also cannot reach or lift overhead d/t pain in back. Pt walks almost every day for about 2 miles. When in [place] in Aug, she walked 5 miles a day. pt was using a walking stick until Aug to walk with to help dec pressure in her back. Prior Treatments and Tests Lumbar CT: IMPRESSION: Acute appearing L1 compression fracture. Chronic appearing T11 compression fracture. Partially visualized splenic artery aneurysm versus calcified splenic cyst. Recommend CT scan of the abdomen with contrast for definitive characterization of the finding. Treatment Goals Patient/Caregiver Goals Help her with balance, not feel dizzy with activities, show her how to be more stable so she isn't tripping and falling, be able to reach overhead and bend over as needed w/o inc pain, be able to canoe; be able to do stairs comfortably PT-OP-C Subjective Start: 10/15/22 17:05 Freq: Status: Active Protocol: Document 12/21/22 13:33 [facility] (Rec: 12/21/22 14:46 [facility] [id number]) OP-PT Subjective Patient Comments Patient Comments Pt reports she is having an easier time in the garden PT-OP-D Balance Start: 10/15/22 17:05 Freq: Status: Active Protocol: Document 11/25/22 14:38 [facility] (Rec: 11/25/22 15:16 [facility] [id number]) Balance Tests Santana Balance Test Santana Balance Test Score 56 PT-OP-E Functional Tests Start: 10/15/22 17:05 Freq: Status: Active Protocol: Document 11/25/22 14:38 [facility] (Rec: 11/25/22 15:16 [facility] [id number]) Functional Tests 30 Second Sit to Stand Test Score 10 Dynamic Gait Index (DGI) Score 20/24 Five Times Sit to Stand Test Score 15 sec PT-OP-F Manual Assessment Start: 10/15/22 17:05 Freq: Status: Active Protocol: Document 10/19/22 14:29 [facility] (Rec: 10/19/22 15:23 [facility] [id number]) Manual Assessments Soft Tissue Assessment Soft Tissue Mobility Assessment some B QL & ES tightness PT-OP-G Mobility & Gait Start: 10/15/22 17:05 Freq: Status: Active Protocol: Document 10/19/22 14:29 [facility] (Rec: 10/19/22 15:23 [facility] [id number]) OP Gait Assessment Comments Gait Comments lat lean R w/R WB PT-OP-J Posture/Palpation/Skin Start: 10/15/22 17:05 Freq: Status: Active Protocol: Document 10/19/22 14:29 [facility] (Rec: 10/19/22 15:23 [facility] [id number]) Posture Evaluation Comments Posture Comments left iliac crest higher, equal greater trochanters; L shoulder higher PT-OP-L Special Tests Start: 10/15/22 17:05 Freq: Status: Active Protocol: Document 10/19/22 14:29 [facility] (Rec: 10/19/22 15:23 [facility] [id number]) Special Tests Lumbar Spine Special Tests Straight Leg Raise Test Results 90 deg L: about 75 deg R PT-OP-M Strength Start: 10/15/22 17:05 Freq: Status: Active Protocol: Document 10/19/22 14:29 [facility] (Rec: 10/19/22 15:23 [facility] [id number]) Hip Strength Hip Manual Muscle Testing Right Flexion (L2) 3 Fair Extension (S1) 3+ Fair+ Abduction 4- Good- External Rotation 3 Fair Internal Rotation 4 Good Left Flexion (L2) 3 Fair Extension (S1) 3+ Fair+ Abduction 3 Fair External Rotation 3 Fair Internal Rotation 3+ Fair+ Knee Strength Knee Manual Muscle Testing Right Flexion (S2) 4- Good- Extension (L3) 3 Fair Left Flexion (S2) 3+ Fair+ Extension (L3) 3 Fair Ankle/Foot Strength Ankle and Foot Manual Muscle Testing Right Dorsiflexion (L4) 5 Normal Plantarflexion (S1) 5 Normal Left Dorsiflexion (L4) 5 Normal Plantarflexion (S1) 5 Normal Comments tested seated B PT-OP-Q Treatments Start: 10/15/22 17:05 Freq: Status: Active Protocol: Document 12/21/22 13:33 [facility] (Rec: 12/21/22 14:46 [facility] [id number]) Therapeutic Exercises Standing Exercises step up Side bilateral Equipment Used 6 in step Reps/Minutes x10 Comments rail prn, cues for glute activation, and control descending stair DF/PF Standing Exercise Name rail prn Side bilateral Reps/Minutes 25 Comments cues for vertical movment only , less a/p weightshifting sit to stands Side bilateral Equipment Used [place] around knees Reps/Minutes x10 Comments cues for slow decent, glute squeeze at top Neuro Re-Education Treatment Balance Activities uneven surfaces Details Foam green, blue, black, agrawal riverwalk stones Surface Uneven Reps/Duration 8x Comments to immitate uneven surfaces in the garden SLS Comments alt toe taps to 8 in step on blue foam x5 B bosu Details standing balance Equipment // bars Comments PERSONNEL TRAINING OFFICER prn tilt board Comments f/b, lat: wt shifts tandem Comments 1. tandem walk on line w/ finger(1) on bar 2x20ft 2. fwd on line 4x30ft 3. tandem stance B foam Surface blue foam Comments 1.WBOS & NBOS & staggered stance w/ head turns and EC trials 2.squats x15 w/cues for butt back (MINI) 3. marches x10 B hurdles Details fwd Equipment 6 hurdles Comments 1. sidesteps x2B 2. fwd recip w/foam btwn x8 PT-OP-T Assessment and Plan Start: 10/15/22 17:05 Freq: Status: Active Protocol: Document 12/21/22 13:33 [facility] (Rec: 12/21/22 14:46 [facility] [id number]) Physical Therapy Assessment Goals stairs Pile Header Goal (LTG) Pt will be able to go up/down stiars w/rail reciprocally w/ rail. 4/5-pain but can LTG Duration 01/11/23 balance Impairment DGI 18/24; FGA 18/30 Short Term Goal (STG) Pt will score at least 20/24 to show dec fall risk STG Duration achieved4/5 Pile Header Goal (LTG) Pt will score at least 23/50 on FGA to shwo dec fall risk LTG Duration 01/11/23 sit to stands Impairment 8 in 30 sec Correction Goal (LTG) Pt will be able to do 11 sit to stands w/o knee pain in 30 sec to show improve strength and stability. 4/5-improved to 10 LTG Duration 01/11/23 SANTANA Correction Goal (LTG) pt will score at least 50 to show improved balance and safe as outdoor and community ambulator LTG Duration achieved mobility Short Term Goal (STG) Pt will be able to reach overhead w/o inc back pain 11/25-improving STG Duration 12/10 Correction Goal (LTG) Pt will be able to bend over as needed at any point int the day w/o LBP 11/25-in AM still stiff LTG Duration 01/11/23 Assessment Summary Assessment pt did well with balance exercises and is showing greater ease w/activities. She still occ does lose balance and step off obstacles or grab rail but overall imrpoving well. Physical Therapy Plan Frequency and Duration Frequency of Treatment 2x/Week Duration of treatment (weeks) 12 Plan of Care Start Date 10/19/22 Plan of Care End Date 01/11/23 Next Visit Focus/Plan Next Note Type Treatment Note Next Visit Plan Advance balance and strength
--- NOTE | 2022-12-23 13:30 | PT.OTN ---
Current Diagnoses Low back pain, unspecified (12/23/22) Repeated falls (12/23/22) Weakness (12/23/22) Wedge compression fracture of T11-T12 vertebra, sequela (12/23/22) Wedge compression fracture of first lumbar vertebra, initial encounter for closed fracture (12/23/22) Physical Therapy Treatment Note PT-OP-A Visit Information Start: 10/15/22 17:05 Freq: Status: Active Protocol: Document 12/23/22 12:52 [facility] (Rec: 12/23/22 13:30 [facility] [id number]) Out-Patient Physical Therapy Visit Information Visit Information Visit Type Progress Note Visit Note 09/01 Visit Start Time 12:45 Visit Stop Time 13:28 Total Visit Minutes 43 Visit Number 16 Number of BINDER TECHNICIAN Visits 0 PT-OP-B Current Condition Start: 10/15/22 17:05 Freq: Status: Active Protocol: Document 10/19/22 14:29 [facility] (Rec: 10/19/22 15:23 [facility] [id number]) Current Condition History of Current Condition Onset Date past year Current Complaints falls, back pain d/t compression fx History of Current Condition Pt reports first fall (october 28 , she tripped on beadspread and hurt her shoulder. Did PT for shoulder. 2nd fall when she hit her sternum andhead on february 10 d/t missing a step on uneven and irregular.Last one , she missed a step going backwards and that was when she fractured her back 7. . She does have neuropathy in her feet. Pt reports she gets dizzy when gets up from bed and sometimes with rolling in bed. She feels like things are moving around in her head. Sometimes she gets spinning. She notes she gets the same thing when she moves her head around sometimes. Pt reports back is achey in the bad weather, but it isn't too bad at all. She also has a wrist injury from her fall and hurt her shoulder and then her 3rd fall made it worse. Lately her knees have been hurting. 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 NOw both hurt going up/down stairs but she hasn't seen anyone yet. She has been trying to be more cautious to avoid falling and has been trying not to be impulsive. She can't bend over in the mornings d/t her back. She also cannot reach or lift overhead d/t pain in back. Pt walks almost every day for about 2 miles. When in [place] in Aug, she walked 5 miles a day. pt was using a walking stick until Aug to walk with to help dec pressure in her back. Prior Treatments and Tests Lumbar CT: IMPRESSION: Acute appearing L1 compression fracture. Chronic appearing T11 compression fracture. Partially visualized splenic artery aneurysm versus calcified splenic cyst. Recommend CT scan of the abdomen with contrast for definitive characterization of the finding. Treatment Goals Patient/Caregiver Goals Help her with balance, not feel dizzy with activities, show her how to be more stable so she isn't tripping and falling, be able to reach overhead and bend over as needed w/o inc pain, be able to canoe; be able to do stairs comfortably PT-OP-C Subjective Start: 10/15/22 17:05 Freq: Status: Active Protocol: Document 12/23/22 12:52 [facility] (Rec: 12/23/22 13:30 [facility] [id number]) OP-PT Subjective Patient Comments Patient Comments Pt reports overall doing [facility] better. PT-OP-D Balance Start: 10/15/22 17:05 Freq: Status: Active Protocol: Document 11/25/22 14:38 [facility] (Rec: 11/25/22 15:16 [facility] [id number]) Balance Tests Santana Balance Test Santana Balance Test Score 56 PT-OP-E Functional Tests Start: 10/15/22 17:05 Freq: Status: Active Protocol: Document 12/23/22 12:52 [facility] (Rec: 12/23/22 13:30 [facility] [id number]) Functional Tests 30 Second Sit to Stand Test Score 10 Functional Gait Assessment Score 28 PT-OP-F Manual Assessment Start: 10/15/22 17:05 Freq: Status: Active Protocol: Document 10/19/22 14:29 [facility] (Rec: 10/19/22 15:23 [facility] [id number]) Manual Assessments Soft Tissue Assessment Soft Tissue Mobility Assessment some B QL & ES tightness PT-OP-G Mobility & Gait Start: 10/15/22 17:05 Freq: Status: Active Protocol: Document 10/19/22 14:29 [facility] (Rec: 10/19/22 15:23 [facility] [id number]) OP Gait Assessment Comments Gait Comments lat lean R w/R WB PT-OP-J Posture/Palpation/Skin Start: 10/15/22 17:05 Freq: Status: Active Protocol: Document 10/19/22 14:29 [facility] (Rec: 10/19/22 15:23 [facility] [id number]) Posture Evaluation Comments Posture Comments left iliac crest higher, equal greater trochanters; L shoulder higher PT-OP-L Special Tests Start: 10/15/22 17:05 Freq: Status: Active Protocol: Document 10/19/22 14:29 [facility] (Rec: 10/19/22 15:23 [facility] [id number]) Special Tests Lumbar Spine Special Tests Straight Leg Raise Test Results 90 deg L: about 75 deg R PT-OP-M Strength Start: 10/15/22 17:05 Freq: Status: Active Protocol: Document 10/19/22 14:29 [facility] (Rec: 10/19/22 15:23 [facility] [id number]) Hip Strength Hip Manual Muscle Testing Right Flexion (L2) 3 Fair Extension (S1) 3+ Fair+ Abduction 4- Good- External Rotation 3 Fair Internal Rotation 4 Good Left Flexion (L2) 3 Fair Extension (S1) 3+ Fair+ Abduction 3 Fair External Rotation 3 Fair Internal Rotation 3+ Fair+ Knee Strength Knee Manual Muscle Testing Right Flexion (S2) 4- Good- Extension (L3) 3 Fair Left Flexion (S2) 3+ Fair+ Extension (L3) 3 Fair Ankle/Foot Strength Ankle and Foot Manual Muscle Testing Right Dorsiflexion (L4) 5 Normal Plantarflexion (S1) 5 Normal Left Dorsiflexion (L4) 5 Normal Plantarflexion (S1) 5 Normal Comments tested seated B PT-OP-Q Treatments Start: 10/15/22 17:05 Freq: Status: Active Protocol: Document 12/23/22 12:52 [facility] (Rec: 12/23/22 13:30 [facility] [id number]) Cardio Equipment Recumbent Elliptical (Biodex) Duration (Minutes) 6 Resistance 6 Seat Position 7 Gym Equipment Shuttle Recovery Unilateral Squats Resistance 37# Shuttle Recovery Platform Stable Reps/Time 15 Therapeutic Exercises Standing Exercises overhead Standing Exercise Name overhead press (in paloff press position) Side bilateral Equipment Used 2 orange bands Reps/Minutes 10 Comments press up overhead step up Standing Exercise Name recip up/down stairs w/rail x Side bilateral Equipment Used 6 in step Reps/Minutes x15 Comments rail prn, cues for glute activation, and control descending stair DF/PF Standing Exercise Name rail prn Side bilateral Reps/Minutes 25 Comments cues for vertical movment only , less a/p weightshifting Neuro Re-Education Treatment Balance Activities uneven surfaces Details Foam green, blue, black, agrawal riverwalk stones Surface Uneven Reps/Duration 8x Comments to immitate uneven surfaces in the garden hurdles Details fwd Equipment 6 hurdles Comments fwd recip w/foam btwn x8 PT-OP-T Assessment and Plan Start: 10/15/22 17:05 Freq: Status: Active Protocol: Document 12/23/22 12:52 [facility] (Rec: 12/23/22 13:30 [facility] [id number]) Physical Therapy Assessment Goals stairs Care Home Goal (LTG) Pt will be able to go up/down stiars w/rail reciprocally w/ rail. 4/5-pain but can /3-can and occ hurts w/up LTG Duration 02/09 balance Impairment DGI 1824; FGA Short Term Goal (STG) Pt will score at least 20/24 to show dec fall risk STG Duration achieved11/25 Care Home Goal (LTG) Pt will score at least 23/50 on FGA to shwo dec fall risk LTG Duration achieved 12/23 sit to stands Impairment 8 in 30 sec Care Home Goal (LTG) Pt will be able to do 11 sit to stands w/o knee pain in 30 sec to show improve strength and stability. 4/5-improved to 10 5/3-10 LTG Duration 02/09 SANTANA Care Home Goal (LTG) pt will score at least 50 to show improved balance and safe as outdoor and community ambulator LTG Duration achieved mobility Short Term Goal (STG) Pt will be able to reach overhead w/o inc back pain 4/5-improving 5/3-occasionally w/stretching way up STG Duration 01/21 Care Home Goal (LTG) Pt will be able to bend over as needed at any point int the day w/o LBP 4/5-in AM still stiff 5/3-some am stiffness LTG Duration 02/09 Assessment Summary Assessment Pt is making excelent progress w/PT and is showing much improved balance w/dec risk for falls. The only concern is strength for sit to stand testign still shows below norm testing as she should be able to do 11 and concern is she is squatting int he garden. COnt PT through end of month possilbyt more in order to work on LE strength and high level balance Physical Therapy Plan Frequency and Duration Frequency of Treatment 2x/Week Duration of treatment (weeks) 8 Plan of Care Start Date 12/23/22 Plan of Care End Date 02/17/23 Therapeutic Interventions Therapeutic Interventions Aquatic Therapy,Balance Training,Gait Training,Home Exercise Program,Joint Mobilizations,Manual Therapy, Neuromuscular Re-education, Orthotic/Prosthetic Management ,Patient/Caregiver Education, Self-Care/Home Management,Soft Tissue Mobilization,Taping, Therapeutic Activities, Therapeutic Exercises, Vestibular Rehabilitation Modalities Cold Pack/Ice Massage,Electric Stimulation,Hot Packs, Ultrasound Next Visit Focus/Plan Next Note Type Treatment Note Next Visit Plan Advance balance and strength
--- NOTE | 2022-12-23 13:30 | PT.OPPOC ---
Physical, Occupational & Speech Therapy At [facility] Current Diagnoses Low back pain, unspecified (12/23/22) Repeated falls (12/23/22) Weakness (12/23/22) Wedge compression fracture of T11-T12 vertebra, sequela (12/23/22) Wedge compression fracture of first lumbar vertebra, initial encounter for closed fracture (12/23/22) Visit Care Team Role Provider Type CARMINA Arnold Attending Provider Advanced Peanut Blancher Family Provider Primary Care Provider Referring Provider Specialty: Family Practice Address: [address] [place] [address], [facility] Email: [email or web address] Plan Of Care PT-OP-T Assessment and Plan Start: 10/15/22 17:05 Freq: Status: Active Protocol: Document 12/23/22 12:52 [facility] (Rec: 12/23/22 13:30 [facility] [id number]) Physical Therapy Assessment Goals stairs Snf Goal (LTG) Pt will be able to go up/down stiars w/rail reciprocally w/ rail. 4/5-pain but can 5/3-can and occ hurts w/up LTG Duration 02/09 balance Impairment DGI ; FGA Short Term Goal (STG) Pt will score at least 24 to show dec fall risk STG Duration achieved11/25 Snf Goal (LTG) Pt will score at least 23/50 on FGA to shwo dec fall risk LTG Duration achieved 12/23 sit to stands Impairment 8 in 30 sec Condenser Winder Goal (LTG) Pt will be able to do 11 sit to stands w/o knee pain in 30 sec to show improve strength and stability. 4/5-improved to 10 5/3-10 LTG Duration 02/09 SANTANA Snf Goal (LTG) pt will score at least 50 to show improved balance and safe as outdoor and community ambulator LTG Duration achieved mobility Short Term Goal (STG) Pt will be able to reach overhead w/o inc back pain 4/5-improving 5/3-occasionally w/stretching way up STG Duration 01/21 Condenser Winder Goal (LTG) Pt will be able to bend over as needed at any point int the day w/o LBP /5-in AM still stiff 12/23-some am stiffness LTG Duration 02/09 Assessment Summary Assessment Pt is making excelent progress w/PT and is showing much improved balance w/dec risk for falls. The only concern is strength for sit to stand testign still shows below norm testing as she should be able to do 11 and concern is she is squatting int he garden. COnt PT through end of month possilbyt more in order to work on LE strength and high level balance Physical Therapy Plan Frequency and Duration Frequency of Treatment 2x/Week Duration of treatment (weeks) 8 Plan of Care Start Date 12/23/22 Plan of Care End Date 02/17/23 Therapeutic Interventions Therapeutic Interventions Aquatic Therapy,Balance Training,Gait Training,Home Exercise Program,Joint Mobilizations,Manual Therapy, Neuromuscular Re-education, Orthotic/Prosthetic Management ,Patient/Caregiver Education, Self-Care/Home Management,Soft Tissue Mobilization,Taping, Therapeutic Activities, Therapeutic Exercises, Vestibular Rehabilitation Modalities Cold Pack/Ice Massage,Electric Stimulation,Hot Packs, Ultrasound Next Visit Focus/Plan Next Note Type Treatment Note Next Visit Plan Advance balance and strength Plan of Care Dates Plan of Care Start Date 12/23/22 Plan of Care End Date 02/17/23 Electronically Signed by: Alisha Bonilla, PT 12/23/22 [id number] If you are in agreement with this Plan of Care, please return a signed and dated copy. I have reviewed this Plan of Care and certify that the skilled therapy services above are required to meet the patient?s needs. Physician Signature Date Printed Name and Credentials Clinical Instructor Signature Printed Name and Credentials
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
== END 2023-01-13 09:01 | disposition home or self-care (01) ==
LOC: PHYS 12:45
PROVIDERS: Family Provider Nurse Practitioner; PCP Nurse Practitioner; Referring Provider Nurse Practitioner; Visit Provider Nurse Practitioner
DX: R29.6 Repeated falls (principal); M54.50 Low back pain, unspecified; S22.080S Wedge compression fracture of T11-T12 vertebra, sequela; S32.010A Wedge compression fracture of first lumbar vertebra, initial encounter for closed fracture; R53.1 Weakness
CPT/HCPCS: 97110; 97112; 97140; 97162; 97535

== ENCOUNTER → 2023-01-12 09:38 | Outpatient (CLI) | payer MEDICARE, SELFPAY ==
--- NOTE | 2023-01-12 09:57 | DI.MG.S_ITS ---
BILATERAL DIGITAL SCREENING MAMMOGRAM 3D/2D WITH CAD: 01/12/2023 CLINICAL: Routine screening. Family history of breast cancer. Comparison is made to exams dated: 01/01/2022 mammogram, 10/22/2020 mammogram - [facility], 10/18/2019 mammogram, and 09/29/2019 mammogram - outside location. Both breasts are heterogeneously dense, which may obscure small masses (category c / 51-75% glandular tissue). Current study was also evaluated with a Computer Aided Detection (CAD) system. No significant masses, calcifications, or other findings are seen in either breast. There has been no significant interval change. IMPRESSION: NEGATIVE There is no mammographic evidence of malignancy. A 1 year screening mammogram is recommended. Based on the Tyrer Cuzick model (a risk assessment model) the patient's lifetime risk is 10.2% and her 10 year risk is 0.0%. According to the ACR, ACS, and NCCN guidelines, an annual breast MRI exam along with mammogram is recommended if the patient's lifetime risk is 20% or greater. This exam was interpreted at Station ID: [id number]. NOTE: For mammograms, a report in lay terms will be sent to the patient. Approximately 15% of breast malignancies will not be visualized mammographically. In the management of a palpable breast mass, a negative mammogram must not discourage biopsy of a clinically suspicious lesion. Electronically Signed By: Luis james/gurmeet:01/12/2023 12:58:35 letter sent: Normal Exam ACR BI-RADS Category 1: Negative [id number]
--- NOTE | 2023-01-12 10:19 | DI.DEXA.S_ITS ---
Bone Density Report Name: JOSE RUDOLPH Age: 77 Sex: Female Ethnicity: White Date of : 1945 Indication: postmenopausal; screening for osteoporosis; prior fracture; Referring Provider: ZONIA WIGGINS Study: Bone densitometry was performed. Exam Date: January 12, 2023 Accession number: [id number] Bone Density: Region BMD T-score Z-score Classification AP Spine(L2, L3) 0.758 -2.7 -0.2 Osteoporosis Femoral Neck (Left) 0.553 -2.7 -0.5 Osteoporosis Total Hip (Left) 0.698 -2.0 -0.1 Osteopenia Femoral Neck (Right) 0.561 -2.6 -0.4 Osteoporosis Total Hip (Right) 0.675 -2.2 -0.3 Osteopenia Total Hip Mean 0.686 -2.1 -0.2 Osteopenia World Health Organization criteria for BMD impression classify patients as: Normal (T-score at or above -1.0), Osteopenia (T-score between -1.0 and -2.5), or Osteoporosis (T-score at or below -2.5). 10-year Fracture Risk: FRAX not reported because: Some T-score for Spine Total or Hip Total or Femoral Neck at or below -2.5 Prior hip or vertebral fracture Impression: The patient has established osteoporosis, based on the Total Spine T-score and the existence of a prior fracture. The patient has risk factors, including: previous fracture. Discussion: HIGH RISK OF FRACTURE. BONE DENSITY IS UNDESIRABLY LOW AT ONE OR MORE SKELETAL SITES, CONSISTENT WITH POSTMENOPAUSAL OSTEOPOROSIS. This patient's lowest T-score, in a patient who has previously fractured, meets the World Health Organization's (WHO) criteria for severe osteoporosis. In untreated patients, the risk of osteoporotic fracture increases approximately two-fold for each 1.0 SD decrease in T-score. Low bone density is not the only risk factor for fracture; also consider factors such as patient's age, frailty or poor health, risk of falling, risk of injury, previous osteoporotic fracture, family history of osteoporosis, cigarette smoking, low body weight, etc. Not everyone with low bone mineral density has osteoporosis; osteomalacia and other metabolic bone disorders should also be considered. Patients who have osteoporosis should be evaluated for specific diseases and conditions (secondary causes) that may cause or contribute to bone loss. The [place] Association [employer] Clinical Endocrinologists (AACE) and National Osteoporosis Foundation (NOF) recommend pharmacologic intervention for all postmenopausal women with a previous hip or vertebral fracture and a T-score in this range. The patient should follow a healthful lifestyle (good nutrition with adequate calcium and vitamin D, and appropriate weight-bearing exercise). Follow-Up: Consider a repeat BMD and Vertebral Fracture Assessment (VFA) exam in 2 years or sooner if medically necessary, to reassess this patient's status. Reported by: JAYMIE MONTAGUE M.D. on 01/12/2023 10:29:00 AM.
== END ==
PROVIDERS: Family Provider Nurse Practitioner; PCP Nurse Practitioner; Referring Provider Nurse Practitioner; Visit Provider Nurse Practitioner
DX: Z12.31 Encounter for screening mammogram for malignant neoplasm of breast (principal); M81.0 Age-related osteoporosis without current pathological fracture; Z80.3 Family history of malignant neoplasm of breast
CPT/HCPCS: 77063; 77067; 77080

== ENCOUNTER → 2023-01-12 09:39 | Outpatient (CLI) | payer MEDICARE, SELFPAY | PROVIDERS: Family Provider Nurse Practitioner; PCP Nurse Practitioner; Referring Provider Nurse Practitioner; Visit Provider Nurse Practitioner | DX: E78.2 Mixed hyperlipidemia (principal); R03.0 Elevated blood-pressure reading, without diagnosis of hypertension; E78.5 Hyperlipidemia, unspecified; Z79.899 Other long term (current) drug therapy; Z11.59 Encounter for screening for other viral diseases | CPT/HCPCS: 36415 ==

== ENCOUNTER → 2023-01-17 11:34 | Outpatient (CLI) | payer MEDICARE, SELFPAY | PROVIDERS: Family Provider Nurse Practitioner; PCP Nurse Practitioner; Visit Provider Family Medicine | DX: R10.9 Unspecified abdominal pain (principal) | CPT/HCPCS: 87086 ==

== ENCOUNTER → 2023-01-19 15:13 | Outpatient (CLI) | payer MEDICARE, SELFPAY ==
--- NOTE | 2023-01-19 15:15 | DI.RAD.S_ITS ---
PROCEDURE: XR KUB INDICATIONS: hematuria TECHNIQUE: One view of the abdomen acquired. COMPARISON: None. FINDINGS: Surgical changes and devices: None. Bowel: Bowel gas pattern is normal. Soft tissues: No suspicious abdominal calcifications. Visualized solid organ contours appear normal in size. Bones: No suspicious bony lesions. Spine degenerative disc disease and facet arthropathy. Convex right scoliosis of the lumbar spine. Severe right and moderate left hip osteoarthritis. IMPRESSION: No renal stone by plain film radiograph. Dictated by: Leticia Dela Cruz MD, PhD on 01/19/2023 at 15:48 Approved by: Leticia Dela Cruz MD, PhD on 01/19/2023 at 15:48
== END ==
PROVIDERS: Family Provider Nurse Practitioner; PCP Nurse Practitioner; Referring Provider Nurse Practitioner Family; Visit Provider Nurse Practitioner Family
DX: R31.9 Hematuria, unspecified (principal); M16.0 Bilateral primary osteoarthritis of hip; M47.819 Spondylosis without myelopathy or radiculopathy, site unspecified; M41.9 Scoliosis, unspecified
CPT/HCPCS: 74018

== ENCOUNTER → 2023-02-02 13:17 | Outpatient (CLI) | payer MEDICARE, SELFPAY ==
--- NOTE | 2023-02-02 13:19 | DI.CT.S_ITS ---
PROCEDURE: CT KIDNEY URETER BLADDER (KUB) INDICATIONS: hematuria TECHNIQUE: Axial sections were acquired from the lung bases to the pubic symphysis. Coronal and sagittal reformats were performed. For radiation dose reduction, the following was used: automated exposure control, adjustment of mA and/or kV according to patient size. COMPARISON: None. FINDINGS: Image quality: There is motion artifact Lower chest: Basal scarring/atelectasis. Solid organs: Liver is unremarkable. Gallbladder is unremarkable. No pathologic dilation of the biliary tree or pancreatic duct. No splenomegaly. A calcified splenic artery aneurysm is suspected at the hilum measuring up to 2 cm. No adrenal nodules. No hydronephrosis. No calcified intrarenal stones. No collecting system dilation. Vessels and lymph nodes: Atherosclerotic calcifications. No abdominal aortic aneurysm. No pathologic adenopathy by size criteria. Bowel and peritoneum: No evidence of small bowel obstruction. No pathologic ascites. No abscess. Appendix is normal. Body wall: Unremarkable Pelvis: Bladder is unremarkable, but under distended and difficult to evaluate. Reproductive organs are not well evaluated on CT. Bones: No acute or suspicious osseous finding. There are degenerative changes. Rightward spinal curvature. Age-indeterminate height loss if the L1 vertebral body. This was seen on radiograph from 2021. IMPRESSION: No hydronephrosis or calcified stones identified. In the setting of hematuria consider further evaluation with CT IVP and cystoscopy. Other findings as above. Dictated by: Mt Cavanaugh M.D. on 02/02/2023 at 16:28 Approved by: Mt Cavanaugh M.D. on 02/02/2023 at 16:32
== END ==
PROVIDERS: Family Provider Nurse Practitioner; PCP Nurse Practitioner; Referring Provider Nurse Practitioner; Visit Provider Nurse Practitioner
DX: R31.9 Hematuria, unspecified (principal)
CPT/HCPCS: 74176

== ENCOUNTER → 2023-02-16 09:26 | Outpatient (CLI) | payer MEDICARE, SELFPAY ==
[2023-02-16 10:10] LABS: Alanine Aminotransferase 22 IU/L (<35); Albumin 3.9 g/dL (3.5-5.0); Albumin Globulin Ratio 1.4 (1.0-2.8); Alkaline Phosphatase 94 U/L (38-126); Aspartate Aminotransferase 25 IU/L (14-36); BUN Creatinine Ratio 24.6 (6-22); Blood Urea Nitrogen 15 mg/dL (7-17); Calcium 9.2 mg/dL (8.4-10.2); Carbon Dioxide 30 mmol/L (22-32); Chloride 104 mmol/L (98-107); Cholesterol 179 mg/dL (140-199); Estimated Glomerular Filt Rate > 60 mL/min (>60); Globulin 2.8 g/dL (1.7-4.1); Glucose 90 mg/dL (80-110); HDL Cholesterol 68 mg/dL (40-60); HEMOLYSIS < 15 (0-50); LDL Cholesterol Calculated 79 mg/dL (<100); Potassium 4.5 mmol/L (3.4-5.1); Sodium 138 mmol/L (137-145); Total Protein 6.7 g/dL (6.3-8.2); Triglycerides 160 mg/dL (35-150)
[2023-02-16 10:24] LABS: Creatinine Urine Random 40.5 mg/dL
[2023-02-16 10:27] LABS: Microalbumi Creatinin Ratio Ur 17.2 ug/mg CR (<30); Microalbumin Urine Random 0.7 mg/dL (0-1.6)
[2023-02-16 10:49] LABS: Free T3, Triiodothyronine Free 3.64 pg/mL (2.77-5.27); Free T4, Direct Thyroxine 0.94 ng/dL (0.78-2.19)
[2023-02-16 11:03] LABS: Thyroid Stimulating Hormone 1.27 uIU/mL (0.47-4.68)
[2023-02-16 11:25] LABS: Hep C Virus Ab w/Reflex Quant NEGATIVE s/c (NEGATIVE)
== END ==
PROVIDERS: Family Provider Nurse Practitioner; PCP Nurse Practitioner; Referring Provider Nurse Practitioner; Visit Provider Nurse Practitioner
DX: Z12.11 Encounter for screening for malignant neoplasm of colon (principal); E03.9 Hypothyroidism, unspecified; Z11.59 Encounter for screening for other viral diseases; E78.2 Mixed hyperlipidemia; E78.5 Hyperlipidemia, unspecified; I10 Essential (primary) hypertension; R03.0 Elevated blood-pressure reading, without diagnosis of hypertension; Z79.899 Other long term (current) drug therapy
CPT/HCPCS: 36415; 80053; 80061; 82043; 82274; 82570; 84439; 84443; 84481; 86803

== ENCOUNTER → 2023-02-16 15:35 | Outpatient (CLI) | payer MEDICARE, SELFPAY ==
[2023-02-17 15:36] LABS: Fecal Immunochemical Test Negative (Negative)
== END ==
PROVIDERS: Family Provider Nurse Practitioner; PCP Nurse Practitioner; Referring Provider Nurse Practitioner; Visit Provider Nurse Practitioner
DX: Z12.11 Encounter for screening for malignant neoplasm of colon (principal)
CPT/HCPCS: 82274

== ENCOUNTER → 2023-06-07 15:24 | Outpatient (CLI) | payer MEDICARE, SELFPAY ==
[2023-06-07 16:52] LABS: Free T4, Direct Thyroxine 1.09 ng/dL (0.78-2.19); Vitamin D 25 Hydroxy (D3) 44.6 ng/mL (30.0-100.0)
[2023-06-07 17:05] LABS: Thyroid Stimulating Hormone 0.963 uIU/mL (0.47-4.68)
[2023-06-09 20:36] LABS: Calcium 8.9 mg/dL (8.7-10.3); Parathyroid Hormone, Intact 45 pg/mL (15-65)
== END ==
PROVIDERS: Family Provider Nurse Practitioner; PCP Nurse Practitioner; Referring Provider Specialist/Technologist Athletic Trainer; Visit Provider Specialist/Technologist Athletic Trainer
DX: E83.52 Hypercalcemia (principal); M80.00XG Age-related osteoporosis with current pathological fracture, unspecified site, subsequent encounter for fracture with delayed healing; Z68.30 Body mass index [BMI] 30.0-30.9, adult
CPT/HCPCS: 36415; 82306; 82310; 83970; 84439; 84443

== ENCOUNTER → 2023-11-11 16:40 | Outpatient (CLI) | payer OTHER, SELFPAY ==
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
== END ==
PROVIDERS: Family Provider Nurse Practitioner; PCP Nurse Practitioner; Referring Provider Physician Assistant Medical; Visit Provider Physician Assistant Medical
DX: M47.816 Spondylosis without myelopathy or radiculopathy, lumbar region (principal); M51.36 Other intervertebral disc degeneration, lumbar region; M43.8X6 Other specified deforming dorsopathies, lumbar region; I72.8 Aneurysm of other specified arteries; M54.50 Low back pain, unspecified
CPT/HCPCS: 72100; 72220

== ENCOUNTER → 2024-01-27 10:21 | Outpatient (CLI) | payer MEDICARE, SELFPAY ==
--- NOTE | 2024-01-27 10:43 | DI.MG.S_ITS ---
BILATERAL DIGITAL SCREENING MAMMOGRAM 3D/2D WITH CAD: 01/27/2024 CLINICAL: Routine screening. Family history of breast cancer. Comparison is made to exams dated: 01/12/2023 mammogram, 01/01/2022 mammogram, and 10/22/2020 mammogram - [facility]. Both breasts are heterogeneously dense, which may obscure small masses (category c / 51-75% glandular tissue). Current study was also evaluated with a Computer Aided Detection (CAD) system. No significant masses, calcifications, or other findings are seen in either breast. There has been no significant interval change. IMPRESSION: NEGATIVE There is no mammographic evidence of malignancy. A 1 year screening mammogram is recommended. Based on the Tyrer Cuzick model (a risk assessment model) the patient's lifetime risk is 9.1% and her 10 year risk is 0.0%. According to the ACR, ACS, and NCCN guidelines, an annual breast MRI exam along with mammogram is recommended if the patient's lifetime risk is 20% or greater. This exam was interpreted at Station ID: [id number]. NOTE: For mammograms, a report in lay terms will be sent to the patient. Approximately 15% of breast malignancies will not be visualized mammographically. In the management of a palpable breast mass, a negative mammogram must not discourage biopsy of a clinically suspicious lesion. Electronically Signed By: Mt ashby/gurmeet:01/27/2024 12:09:35 letter sent: Normal Exam ACR BI-RADS Category 1: Negative [id number]
[2024-01-27 11:43] LABS: Alanine Aminotransferase 16 IU/L (<35); Albumin 3.9 g/dL (3.5-5.0); Albumin Globulin Ratio 1.9 (1.0-2.8); Alkaline Phosphatase 82 U/L (38-126); Aspartate Aminotransferase 23 IU/L (14-36); BUN Creatinine Ratio 18.3 (6-22); Bilirubin Total 0.8 mg/dL (0.2-1.3); Blood Urea Nitrogen 13 mg/dL (7-17); Calcium 8.9 mg/dL (8.4-10.2); Carbon Dioxide 27 mmol/L (22-32); Chloride 110 mmol/L (98-107); Cholesterol 170 mg/dL (140-199); Estimated Glomerular Filt Rate > 60 mL/min (>60); Globulin 2.1 g/dL (1.7-4.1); Glucose 94 mg/dL (80-110); HDL Cholesterol 78 mg/dL (40-60); HEMOLYSIS < 15 (0-50); LDL Cholesterol Calculated 70 mg/dL (<100); Potassium 4.1 mmol/L (3.4-5.1); Sodium 139 mmol/L (137-145); Triglycerides 110 mg/dL (35-150)
[2024-01-27 11:57] LABS: Free T3, Triiodothyronine Free 3.32 pg/mL (2.77-5.27); Free T4, Direct Thyroxine 0.97 ng/dL (0.78-2.19)
[2024-01-27 12:11] LABS: Thyroid Stimulating Hormone 1.03 uIU/mL (0.47-4.68)
[2024-01-27 15:36] LABS: Microalbumin Urine Random 1.4 mg/dL (0-1.6)
== END ==
PROVIDERS: Family Provider Nurse Practitioner; PCP Nurse Practitioner; Referring Provider Nurse Practitioner; Visit Provider Nurse Practitioner
DX: E78.2 Mixed hyperlipidemia (principal); Z12.31 Encounter for screening mammogram for malignant neoplasm of breast; Z80.3 Family history of malignant neoplasm of breast; R92.333 Mammographic heterogeneous density, bilateral breasts; M81.0 Age-related osteoporosis without current pathological fracture; I10 Essential (primary) hypertension; Z79.899 Other long term (current) drug therapy
CPT/HCPCS: 36415; 77063; 77067; 80053; 80061; 82043; 82570; 84439; 84443; 84481

== ENCOUNTER 2024-02-23 13:00 | Outpatient (RCR) | payer OTHER, MEDICARE, SELFPAY ==
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
== END 2024-02-29 13:46 | disposition home or self-care (01) ==
LOC: PHYS 13:00
PROVIDERS: Family Provider Nurse Practitioner; PCP Nurse Practitioner; Referring Provider Nurse Practitioner; Visit Provider Nurse Practitioner
DX: M54.50 Low back pain, unspecified (principal); R53.1 Weakness; R29.3 Abnormal posture; R26.2 Difficulty in walking, not elsewhere classified; V89.2XXD Person injured in unspecified motor-vehicle accident, traffic, subsequent encounter; V89.2XXA Person injured in unspecified motor-vehicle accident, traffic, initial encounter
CPT/HCPCS: 97110; 97112; 97140; 97162; 97530; 97535

== ENCOUNTER → 2024-03-08 15:18 | Outpatient (CLI) | payer MEDICARE, SELFPAY ==
--- NOTE | 2024-03-08 15:19 | DI.RAD.S_ITS ---
PROCEDURE: XR CHEST 2V INDICATIONS: Chest pain TECHNIQUE: 2 views of the chest were acquired. COMPARISON: [facility], CT, CT KIDNEY URETER BLADDER (KUB), 02/02/2023, 13:26. FINDINGS: Surgical changes and devices: None Lungs and pleura: Lungs are clear. No pleural effusions or pneumothorax. Mediastinum: Mediastinal contours are normal. Heart size is normal. Bones and chest wall: No suspicious bony abnormalities. Soft tissues appear unremarkable. 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 IMPRESSION: No acute cardiopulmonary process. Dictated by: Harpal Boyle M.D. on 03/08/2024 at 17:00 Approved by: Harpal Boyle M.D. on 03/08/2024 at 17:04
[2024-03-08 17:47] LABS: Vitamin B12 245 pg/mL (239-931)
== END ==
PROVIDERS: Family Provider Nurse Practitioner; PCP Nurse Practitioner; Referring Provider Physician Assistant; Visit Provider Physician Assistant
DX: R07.9 Chest pain, unspecified (principal); R00.2 Palpitations; G62.9 Polyneuropathy, unspecified
CPT/HCPCS: 36415; 71046; 82607; 93005

== ENCOUNTER → 2024-03-20 14:45 | Outpatient (CLI) | payer MEDICARE, SELFPAY | LOC: CAR 14:48 | PROVIDERS: Family Provider Nurse Practitioner; PCP Nurse Practitioner; Referring Provider Nurse Practitioner; Visit Provider Physician Assistant | DX: R07.9 Chest pain, unspecified (principal); R00.2 Palpitations | CPT/HCPCS: 93246 ==

== ENCOUNTER → 2024-04-07 12:18 | Outpatient (CLI) | payer MEDICARE, SELFPAY ==
--- NOTE | 2024-04-07 12:19 | DI.CT.S_ITS ---
PROCEDURE: CT HEAD/BRAIN WO CON INDICATIONS: new onset unsteadiness and headache TECHNIQUE: Noncontrast 4.5 mm thick angled axial sections acquired from the foramen magnum to the vertex, with coronal and sagittal reformats. For radiation dose reduction, the following was used: automated exposure control, adjustment of mA and/or kV according to patient size. COMPARISON: [facility], CT, CT HEAD/BRAIN WO CON, 03/19/2022, 10:14. FINDINGS: Image quality: Diagnostic. CSF spaces: Basal cisterns are patent. No extra-axial fluid collections. The ventricles are symmetric in size and shape. Brain: No intracranial bleeds or masses. There is cerebral volume loss for age, with resultant ventricular and sulcal prominence. There are periventricular and deep white matter chronic small vessel ischemic changes. There is intracranial internal carotid artery atherosclerosis. Skull and face: Calvarium and visualized facial bones appear intact, without suspicious lesions. Sinuses: Visualized sinuses and mastoids are clear. IMPRESSION: No acute intracranial pathology. No acute intracranial hemorrhage is seen. If there is strong clinical suspicion for an acute stroke, please consider a brain MRI for further evaluation, as it is more sensitive (assuming that there is no contraindication to MRI). Dictated by: Genaro Edwards M.D. on 04/07/2024 at 11:38 Approved by: Genaro Edwards M.D. on 04/07/2024 at 11:39
--- NOTE | 2024-04-07 12:19 | DI.US.S_ITS ---
PROCEDURE: US CAROTID DOPPLER BI INDICATIONS: rule out stroke TECHNIQUE: Color and pulse Doppler interrogation was performed of both carotid systems, with image documentation and velocity measurements. COMPARISON: [facility], CT, CT HEAD/BRAIN WO CON, 04/07/2024, 12:22. FINDINGS: Stenosis calculations are based on SRU (Society of Radiologists in Ultrasound) criteria. The flow velocities and the arterial waveforms are normal within both carotid arterial systems. Minimal atherosclerotic plaque is seen on both sides. The estimated degree of internal carotid artery stenosis is less than 50%. Antegrade flow is confirmed within both vertebral arteries. IMPRESSION: No hemodynamically significant stenosis is seen. Dictated by: Genaro Edwards M.D. on 04/07/2024 at 12:53 Approved by: Genaro Edwards M.D. on 04/07/2024 at 12:54
== END ==
PROVIDERS: Family Provider Nurse Practitioner; PCP Nurse Practitioner; Referring Provider Nurse Practitioner; Visit Provider Nurse Practitioner
DX: R55 Syncope and collapse (principal); I63.9 Cerebral infarction, unspecified; I65.29 Occlusion and stenosis of unspecified carotid artery; R26.89 Other abnormalities of gait and mobility
CPT/HCPCS: 70450; 93880

== ENCOUNTER → 2024-04-10 16:08 | Outpatient (CLI) | payer MEDICARE, SELFPAY ==
--- NOTE | 2024-04-10 16:09 | DI.US.S_ITS ---
PROCEDURE: US PERIPH VENOUS UP EXTREM RT INDICATIONS: rule out clot TECHNIQUE: Real-time imaging, as well as color and pulse Doppler interrogation, was performed of the upper extremity deep veins from the inferior neck to the antecubital fossa. COMPARISON: None. FINDINGS: The internal jugular vein, visualized portions of the subclavian vein, axillary, and brachial veins are free of intraluminal thrombus. Where physically possible, the veins are normally compressible. Color and pulse Doppler demonstrate normal intraluminal flow, with expected phasicity and pulsatility. Additional scanning of the cephalic and basilic veins of the superficial system demonstrates normal compressibility, without thrombus. IMPRESSION: No findings of upper extremity deep venous thrombosis can be seen. Dictated by: Hayley Conte M.D. on 04/10/2024 at 17:21 Approved by: Hayley Conte M.D. on 04/10/2024 at 17:22
== END ==
LOC: US 16:09
PROVIDERS: Family Provider Nurse Practitioner; PCP Nurse Practitioner; Referring Provider Nurse Practitioner; Visit Provider Nurse Practitioner
DX: I82.90 Acute embolism and thrombosis of unspecified vein (principal); I48.91 Unspecified atrial fibrillation; M79.89 Other specified soft tissue disorders
CPT/HCPCS: 93971

== ENCOUNTER → 2024-05-29 17:17 | Outpatient (CLI) | payer MEDICARE, SELFPAY | PROVIDERS: Family Provider Nurse Practitioner; PCP Family Medicine; Visit Provider Nurse Practitioner Family | DX: N94.89 Other specified conditions associated with female genital organs and menstrual cycle (principal); R30.0 Dysuria | CPT/HCPCS: 87086; 87210 ==

== ENCOUNTER → 2024-05-29 18:17 | Outpatient (CLI) | payer MEDICARE, SELFPAY ==
--- NOTE | 2024-05-29 18:20 | DI.RAD.S_ITS ---
PROCEDURE: XR KUB INDICATIONS: Hematuria TECHNIQUE: One view of the abdomen acquired. COMPARISON: [facility], CR, XR KUB, 01/19/2023, 15:14. FINDINGS: Stool gas pattern: Normal-no evidence of ileus or obstruction. No free intraperitoneal or extraperitoneal air. No gross evidence of ascites Soft tissues: A 2 centimeter calcification left upper quadrant is unchanged from 01/19/2023 and presumably a granuloma. No soft tissue masses. Bones soft tissues: Severe arthritic changes are noted in both medial hips likely atypical degeneration but could indicate chronic inflammatory arthritis Organs: No gross evidence for organomegaly. IMPRESSION: No acute disease. No definite stones overlie the kidneys ureters or bladder Severe chronic arthritic changes both hips Dictated by: Jun Hartley M.D. on 05/30/2024 at 10:15 Approved by: Jun Hartley M.D. on 05/30/2024 at 10:17
== END ==
PROVIDERS: Family Provider Nurse Practitioner; PCP Family Medicine; Referring Provider Nurse Practitioner Family; Visit Provider Nurse Practitioner Family
DX: N94.89 Other specified conditions associated with female genital organs and menstrual cycle (principal); R31.9 Hematuria, unspecified; R30.0 Dysuria
CPT/HCPCS: 74018; 87086; 87210

== ENCOUNTER → 2024-07-05 15:36 | Outpatient (CLI) | payer MEDICARE, SELFPAY ==
[2024-07-05 16:23] LABS: C-Reactive Protein Quant 0.7 mg/dL (<1.0)
[2024-07-05 17:17] LABS: Erythrocyte Sedimentation Rate 15 MM/HR (0-20)
== END ==
LOC: LAB 15:39
PROVIDERS: Family Provider Nurse Practitioner; PCP Family Medicine; Referring Provider Internal Medicine; Visit Provider Internal Medicine
DX: R51.9 Headache, unspecified (principal)
CPT/HCPCS: 36415; 85651; 86140

== ENCOUNTER → 2024-07-19 08:30 | Outpatient (CLI) | payer MEDICARE, SELFPAY ==
[2024-07-19 09:57] LABS: Add Manual Diff / Slide Review NO; Basophils Absolute Auto 0 /uL (0-100); Basophils Percent Auto 0.9 % (0-2); Eosinophils Absolute Auto 100 /uL (0-450); Eosinophils Percent Auto 2.6 % (2-4); Hematocrit 36.1 % (36-46); Hemoglobin 12.2 g/dL (12.0-16.0); Lymphocytes Absolute Auto 1500 /uL (1100-4500); Lymphocytes Percent Auto 30.6 % (25-40); Mean Corpuscular HGB Conc 33.7 % (30-36); Mean Corpuscular Hemoglobin 30.9 PG (26-34); Mean Corpuscular Volume 91.5 fL (80-100); Monocytes Absolute Auto 400 /uL (0-900); Monocytes Percent Auto 7.9 % (3-14); Neutrophils Absolute Auto 2900 /uL (1500-7000); Platelet Count 257 X10^3/uL (150-400); Red Blood Cell Count 3.94 X10^6/uL (4.0-5.2); Red Cell Distribution Width 13.9 % (11.6-14.8)
[2024-07-19 10:21] LABS: Alanine Aminotransferase 20 IU/L (<35); Albumin Globulin Ratio 1.7 (1.0-2.8); Alkaline Phosphatase 83 U/L (38-126); Aspartate Aminotransferase 26 IU/L (14-36); BUN Creatinine Ratio 17.8 (6-22); Bilirubin Total 0.8 mg/dL (0.2-1.3); Blood Urea Nitrogen 13 mg/dL (7-17); Calcium 9.8 mg/dL (8.4-10.2); Carbon Dioxide 28 mmol/L (22-32); Chloride 106 mmol/L (98-107); Estimated Glomerular Filt Rate > 60 mL/min (>60); Globulin 2.3 g/dL (1.7-4.1); Glucose 94 mg/dL (80-110); HEMOLYSIS < 15 (0-50); Potassium 4.4 mmol/L (3.4-5.1); Sodium 139 mmol/L (137-145); Total Protein 6.3 g/dL (6.3-8.2)
[2024-07-19 11:11] LABS: Vitamin B12 848 pg/mL (239-931)
== END ==
PROVIDERS: Physician Assistant; Family Provider Nurse Practitioner; PCP Family Medicine; Referring Provider Family Medicine; Visit Provider Family Medicine
DX: R30.0 Dysuria (principal); R10.30 Lower abdominal pain, unspecified; R35.0 Frequency of micturition; R31.9 Hematuria, unspecified; R79.89 Other specified abnormal findings of blood chemistry; R10.31 Right lower quadrant pain
CPT/HCPCS: 36415; 80053; 82607; 85025; 87086

== ENCOUNTER → 2024-07-27 13:09 | Outpatient (CLI) | payer MEDICARE, SELFPAY ==
--- NOTE | 2024-07-27 13:10 | DI.CT.S_ITS ---
PROCEDURE: CT ABDOMEN PELVIS W CON INDICATIONS: hematuria, RLQ pain TECHNIQUE: After the administration of intravenous contrast, axial sections acquired from the lung bases to the pubic symphysis. Coronal and sagittal reformats were performed. For radiation dose reduction, the following was used: automated exposure control, adjustment of mA and/or kV according to patient size. COMPARISON: None. FINDINGS: Image quality: Diagnostic. Lower Chest: No significant findings. ABDOMEN: Liver: No solid mass. Moderate hepatic steatosis is seen. Gallbladder: No radiopaque gallstones or wall thickening. Biliary ducts: No biliary dilation. Pancreas: No ductal dilation. Spleen: Size is within normal limits. Adrenal Glands: No adrenal nodules. Kidneys and Ureters: There is mild prominence of right renal collecting system extending to the level of right UPJ. No right-sided hydroureter. No left-sided hydronephrosis or hydroureter. No significant perinephric fat stranding. No solid mass. No complex renal cystic lesion which requires follow up. Stomach and Bowel: There is suggestion of gastric wall thickening which may be due to under distension. Infectious inflammatory gastritis cannot be excluded. Normal colonic caliber, without significant wall thickening. Appendix is visualized and is within normal limits. No abscess collection. Peritoneum: No abnormal intraperitoneal fluid. No free air. Ventral Wall: No significant ventral hernia. Abdominal Nodes: No retroperitoneal or mesenteric adenopathy by size criteria. Vessels: Aorta and inferior vena cava are normal in size. PELVIS: Pelvic Organs: Unremarkable. Bladder: There is mild bladder wall thickening particularly involving right anterior wall of bladder, no discrete bladder wall mass is seen. No calcified bladder stones. Pelvic Nodes: No enlarged lymph nodes. Miscellaneous: No inguinal hernias are seen. Bones: No aggressive osseous abnormality. IMPRESSION: 1. Very mild prominence of right renal collecting system without obstructing stone or hydroureter. Finding may represent right peripelvic renal cyst versus mild UPJ stenosis. No left-sided renal stones or hydronephrosis. No hydroureter. 2. Mild bladder wall thickening, which may represent cystitis. No discrete bladder wall mass. No calcified bladder stones. 3. Suggestion of diffuse gastric wall thickening which may be due to under distension. Infectious or inflammatory gastritis cannot be excluded. 4. No bowel obstruction. No small bowel or colon wall thickening. Normal appendix. No free fluid or free air. Dictated by: Brendon Moran M.D. on 07/27/2024 at 15:22 Approved by: Brendon Moran M.D. on 07/27/2024 at 15:31
== END ==
PROVIDERS: Family Provider Nurse Practitioner; PCP Family Medicine; Referring Provider Family Medicine; Visit Provider Family Medicine
DX: R31.9 Hematuria, unspecified (principal); R10.31 Right lower quadrant pain; K76.0 Fatty (change of) liver, not elsewhere classified
CPT/HCPCS: 74177; Q9967

== ENCOUNTER 2024-09-11 14:29 | Day surgery (SDC) | payer MEDICARE, SELFPAY ==
[2024-09-05 13:24] VITALS: BMI 27.1
--- NOTE | 2024-09-11 | PATH_ITS ---
[facility] Accession Number: [id number] No. of containers..01 Tissue . 01 Material submitted: . endometrium - ENDOMETRIAL CONTENTS . 01 Diagnosis: ENDOMETRIAL CONTENTS: Fragments of weakly proliferative endometrial tissue with patchy stromal breakdown; negative for significant atypia. Polypoid fragments of lower uterine segment; negative for significant atypia. Portions of atypical squamous mucosa with rare cytologic atypia; indeterminate for the presence of low-grade squamous intraepithelial lesion / SHYAM-1. Please see comment. MRV 09/15/20241305 Local . 01 Comment: Due to the scant nature of endometrial tissue in this biopsy, it may not be entirely medical device sales representative of this patient's endometrium; additional sampling could be considered, if clinically appropriate. . 01 Electronically signed: . Estefany Price MD, Pathologist NPI- [id number] . 01 Gross description: . Received in formalin with two patient identifiers and endometrial contents, and consists of a 1.0 x 0.4 x 0.2 cm aggregate of duarte-white friable soft tissue admixed with clotted blood, which is filtered and entirely submitted in cassette A1. ([id number]) /MRV 09/13/[id number] Local . 01 Pathologist provided ICD-10: R10.2, R93.89 . 01 CPT . 987064 Specimen Comment: A courtesy copy of this report has been sent to [facility] Pathology Performed at: [address] [address], [place], [place] [id number] MD Jef Chua MD Phone: [phone]
[2024-09-11] MEDS: LACTATED RINGERS 1,000 ML 21 ML IV (15:01)
[2024-09-11 15:13] VITALS: BP 146/69; PULSE 79; RESP 16; TEMP 36.9; O2SAT 99; BMI 26.1
--- NOTE | 2024-09-11 16:48 | PM.PREOP ---
Pre-operative Note Interval Note History & Physical reviewed/Exam performed by Physician: Yes Changes to H&P: No H&P completed within 30 days and has changed as indicated here:: 09/05/24 ASA Class (for procedural sedation): II
[2024-09-11] MEDS: ACETAMINOPHEN 325 MG TABLET 975 MG PO (16:51)
--- NOTE | 2024-09-11 17:40 | PM.OP.1 ---
Operative Date/Time/Diagnoses Date of procedure: 09/11/24 Time of procedure: 17:40 Pre-op diagnosis: vaginal pain, abnormal pelvic ultrasound Post-op diagnosis: same Procedure & Clinicians Procedure: hysteroscopy myosure polypectomy dilation and curettage Same procedure as scheduled: Yes Indications: acute onset vaginal pain, abnormal pelvic US Surgeon: Dalila Garnica Click Yes if Unassisted: No Anesthesia Type: General Operative Notes Findings: normal external female genitalia, perineum, anus vagina with diffuse pallor/atrophy; cervix atrophic and flush to vaginal apex limited visualization of intrauterine cavity secondary to size, vesicular appearing endometrium with polyp Specimen(s): other (endometrial contents) Estimated Blood Loss (mL): 5 Procedure in detail: Pt was taken to the operating room, transferred to OR table and anesthesia was induced with placement of LMA.? Pt had her legs placed in Kai stirrups and an exam under anesthesia was performed. The patient was prepped and draped in a sterile fashion.? A time out was performed. ?The bladder was emptied via straight catheter in sterile fashion.? A sterile speculum was inserted into the vagina.? The cervix was visualized and grasped anteriorly using a single tooth tenaculum.? The uterus sounded to 4cm and the cervical os was serially dilated using Vega dilators up to 17f to allow for passage of the hysteroscope.? The 5mm 0 degree hysteroscope was then inserted into the uterus with findings as noted.? The small myosure device was introduced and the visualized endometrium was fractionally resected under direct visualization. The hysteroscope was removed and the uterus was sharply curetted until a gritty texture was noted throughout.? The tenaculum was removed and hemostasis was noted at insertion sites.? The speculum was removed and hemostasis was again noted to be excellent.? The patient then had her legs taken out of stirrups.? The patient tolerated the procedure well and without difficulty.? The patient was awakened from anesthesia and taken to PACU in stable condition. Complications: none Post-operative Condition: stable Disposition: PACU Plan for aftercare: dc to home pending clinical course, outpatient f/u in office as scheduled
[2024-09-11 17:46] VITALS: BP 163/74; PULSE 83; RESP 16; TEMP 37.2; O2SAT 96
[2024-09-11 17:51] VITALS: BP 151/77; PULSE 74; RESP 16; O2SAT 97
[2024-09-11 17:56] VITALS: BP 150/79; PULSE 74; RESP 20; TEMP 37.1; O2SAT 98
[2024-09-11 18:01] VITALS: BP 164/72; PULSE 76; RESP 10; TEMP 36.8; O2SAT 99
== END 2024-09-11 18:13 | disposition home or self-care (01) ==
PROVIDERS: Family Provider Nurse Practitioner; PCP Family Medicine; Referring Provider Obstetrics & Gynecology; Visit Provider Obstetrics & Gynecology
PROC: 0UDB8ZZ Extraction of Endometrium, Via Natural or Artificial Opening Endoscopic (ICD-10-PCS; CPT 58558; principal; 2024-09-11 16:00)
DX: N95.2 Postmenopausal atrophic vaginitis (principal); N84.0 Polyp of corpus uteri; R10.2 Pelvic and perineal pain; R93.89 Abnormal findings on diagnostic imaging of other specified body structures; I10 Essential (primary) hypertension; I48.0 Paroxysmal atrial fibrillation; I47.19 Other supraventricular tachycardia; Z79.01 Long term (current) use of anticoagulants
CPT/HCPCS: 58558; 82962; J2405; J2704; J3010

== ENCOUNTER → 2024-10-19 14:17 | Outpatient (CLI) | payer MEDICARE, SELFPAY ==
[2024-10-21 14:36] LABS: Candida species Negative (Negative); Gardnerella vaginalis Negative (Negative); Trichomoas vaginalis Negative (Negative)
== END ==
PROVIDERS: Family Provider Nurse Practitioner; PCP Family Medicine; Visit Provider Obstetrics & Gynecology
DX: N89.8 Other specified noninflammatory disorders of vagina (principal)
CPT/HCPCS: 87480; 87510; 87660

== ENCOUNTER → 2024-12-27 12:22 | Outpatient (CLI) | payer MEDICARE, SELFPAY ==
[2024-12-27 14:45] LABS: Appearance Urine UA CLEAR; Bilirubin Urine UA NEGATIVE (NEGATIVE); Color Urine UA YELLOW; Glucose Urine UA NEGATIVE (Negative); Ketones Urine UA NEGATIVE (NEGATIVE); Leukocyte Esterase Urine UA NEGATIVE (NEGATIVE); Nitrite Urine UA NEGATIVE (Negative); Occult Blood Urine UA 2+ (Negative); Protein Urine UA NEGATIVE (Negative); Urobilinogen Urine UA 0.2 E.U./dL (0.2)
[2024-12-27 14:46] LABS: Urine Volume 10mL (spun)
[2024-12-27 14:47] LABS: Bacteria Urine None Seen; Culture Indicated Urine Cult Not Indicated; RBC Urine 1-5/HPF (0-5/HPF); Squamous Epithelial Cell Urine None Seen (0-5/HPF); WBC Urine None Seen (0-5/HPF)
== END ==
LOC: LAB 12:48
PROVIDERS: Family Provider Nurse Practitioner; PCP Family Medicine; Visit Provider Obstetrics & Gynecology Gynecology
DX: R39.82 Chronic bladder pain (principal)
CPT/HCPCS: 81001

== ENCOUNTER → 2025-01-02 13:45 | Outpatient (CLI) | payer MEDICARE, SELFPAY ==
--- NOTE | 2025-01-02 13:46 | DI.US.S_ITS ---
PROCEDURE: US PELVIC COMPLETE INDICATIONS: HX ENDOMETRIAL THICKENING TECHNIQUE: Real-time scanning was performed of the pelvic organs, with image documentation. Additional endovaginal scanning was necessary due to incomplete visualization of the adnexal and endometrial structures by transabdominal scanning. COMPARISON: None. FINDINGS: Uterus: Uterus is anteverted and diminutive in size at 3.6 x 1.9 x 3.1 cm. The myometrium is homogeneous. The endometrium measures 2 mm combined thickness. There is a intramural fibroid in the right posterior body measuring 9 x 7 mm. Ovaries: Not seen bilaterally. Other: No pathologic free abdominal or pelvic fluid. IMPRESSION: 1. Thin endometrial stripe measuring 2 mm. 2. Subcentimeter fibroid. 3. Nonvisualization of either ovary. No adnexal mass seen. We strive to produce accurate, complete, and clear reports of imaging services. To assist us in improving patient care, this report was composed using standard report templates and voice recognition software. Therefore, it may contain abnormal punctuation, insertions and/or omissions. Occasional wrong-word or sound-alike substitutions may occur. Though we review the report and make efforts to correct it, we do recommend that the report be read carefully in proper context to recognize any text inaccuracies. Dictated by: Johnathan Guzman M.D. on 01/02/2025 at 18:47 Approved by: Johnathan Guzman M.D. on 01/02/2025 at 18:49
== END ==
PROVIDERS: Family Provider Nurse Practitioner; PCP Family Medicine; Referring Provider Obstetrics & Gynecology Gynecology; Visit Provider Obstetrics & Gynecology Gynecology
DX: R93.89 Abnormal findings on diagnostic imaging of other specified body structures (principal); D25.1 Intramural leiomyoma of uterus
CPT/HCPCS: 76830; 76856

== ENCOUNTER → 2025-02-09 14:44 | Outpatient (CLI) | payer MEDICARE, SELFPAY ==
--- NOTE | 2025-02-09 14:45 | DI.MG.S_ITS ---
MM screening mammo BI: 02/09/2025. BI-RADS: 2 CLINICAL: 79-year old female for bilateral screening mammogram. Tyrer-Cuzick lifetime risk of 3.7%. No personal or first-degree family history of breast cancer. Current reported family history of breast cancer: paternal grandmother and maternal aunt. PRIOR EXAMS 01/27/2024, 01/12/2023, 01/01/2022, 02/21/2021, 10/22/2020. MAMMOGRAPHY TECHNIQUE: 2D and 3D (tomosynthesis) digital mammographic views obtained, with additional images as needed for full coverage. Current study was also evaluated with a Computer Aided Detection (CAD) system. DENSITY C. The breasts are heterogeneously dense, which may obscure small masses. MAMMOGRAPHY FINDINGS Bilateral: Typically-benign vascular calcifications noted. IMPRESSION: * No evidence of malignancy with benign findings. RECOMMENDATIONS Bilateral * Annual screening mammography. OVERALL ASSESSMENT CATEGORY BI-RADS-2: Benign. The [employer] recommends annual screening mammography beginning at age 40 for women with average risk of breast cancer. ELECTRONICALLY SIGNED: Luis Valencia M.D. on 02/09/2025 at 05:18:18 PM PT Interpreting Station ID: [id number]
== END ==
LOC: MAMMO 14:45
PROVIDERS: Family Provider Nurse Practitioner; PCP Family Medicine; Referring Provider Family Medicine; Visit Provider Family Medicine
DX: Z12.31 Encounter for screening mammogram for malignant neoplasm of breast (principal); R92.333 Mammographic heterogeneous density, bilateral breasts; Z80.3 Family history of malignant neoplasm of breast
CPT/HCPCS: 77063; 77067

== ENCOUNTER → 2025-05-11 12:00 | Outpatient (CLI) | payer MEDICARE, SELFPAY ==
[2025-05-11 12:36] LABS: Hematocrit 37.4 % (36-46); Hemoglobin 12.5 g/dL (12.0-16.0); Mean Corpuscular HGB Conc 33.5 % (30-36); Mean Corpuscular Hemoglobin 29.9 PG (26-34); Mean Corpuscular Volume 89.3 fL (80-100); Platelet Count 263 X10^3/uL (150-400)
[2025-05-11 13:33] LABS: Alanine Aminotransferase 14 IU/L (<35); Albumin 4.2 g/dL (3.5-5.0); Albumin Globulin Ratio 1.7 (1.0-2.8); Alkaline Phosphatase 108 U/L (38-126); Blood Urea Nitrogen 12 mg/dL (7-17); Calcium 9.8 mg/dL (8.4-10.2); Carbon Dioxide 26 mmol/L (22-32); Chloride 103 mmol/L (98-107); Estimated Glomerular Filt Rate > 60 mL/min (>60); Globulin 2.5 g/dL (1.7-4.1); Glucose 83 mg/dL (70-99); HEMOLYSIS < 15 (0-50); Potassium 4.3 mmol/L (3.4-5.1); Sodium 138 mmol/L (137-145); Total Protein 6.7 g/dL (6.3-8.2); Uric Acid 4.3 mg/dL (2.5-6.2)
== END ==
PROVIDERS: Family Provider Nurse Practitioner; PCP Family Medicine; Referring Provider Family Medicine; Visit Provider Family Medicine
DX: M79.10 Myalgia, unspecified site (principal); M25.50 Pain in unspecified joint; I48.0 Paroxysmal atrial fibrillation
CPT/HCPCS: 36415; 80053; 84550; 85027; 85651; 86140; 86200; 86430